=== PATIENT | female | born 1940 | race Caucasian/White ===

== ENCOUNTER 2016-09-19 19:40 | Emergency (ER) | payer OTHER ==
[~2016-09-19] VITALS: Ht 158.8 cm; Wt 88.6 kg
[~2016-09-19 19:40] MED LIST: ALBUAER19 INH; ALPR0.25 PO; AMIT10TA6 PO; ASPI81TA28 PO; ATEN-175 PO; BETA0.053 TOP; CHOL1TAB42 PO; FERR325T5 PO; FLUO0.0543 TOP; GABA-113 PO; INSDGI SQ; LOSA50TA6 PO; METF-384 PO; METR1GEL3 TOP; MISCTAB88 PO; NVLGI SC; NVLGI SQ; OMEP20CA9 PO; PRED1SUS3; SIMV20TA2 PO; TRIA0.1C20 TOP
[2016-09-19 19:53] VITALS: TEMP 37.1; Ht 158.8 cm; Wt 88.6 kg
[2016-09-19 19:58] VITALS: O2SAT 97
[2016-09-19] MEDS ORDERED: ALPRAZOLAM 0.5 MG TAB PO STA (20:14)
[2016-09-19 20:24] LABS: MEAN CELL VOLUME 96.9 fL (80-100); MEAN CORPUSCULAR HEMOGLOBIN 30.4 pg (25-34); RED BLOOD COUNT 3.82 M/uL (4.2-5.4); WHITE BLOOD COUNT 7.27 K/uL (4.8-10.8)
[2016-09-19 20:25] LABS: MEAN CORPUSCULAR HGB CONC 31.4 g/dl (32-36); MEAN PLATELET VOLUME 10.5 fL (7.4-10.4); PLATELET COUNT 237 K/uL (130-400)
[2016-09-19 20:39] LABS: BLOOD UREA NITROGEN 14 mg/dl (7-18); BUN/CREATININE RATIO 10.5 (10-20); CARBON DIOXIDE 28 mmol/L (21-32); CHLORIDE 108 mmol/L (98-107); GLUCOSE 163 mg/dl (70-99); POTASSIUM 4.4 mmol/L (3.5-5.1); SODIUM 142 mmol/L (136-145)
--- NOTE | 2016-09-19 20:48 | EMERGENCY ROOM VISIT NOTE ---
History Report prepared by Isma: Dave Knowles Under the Supervision of: Dr. Mauricio Waller M.D. First contact with patient: 20:08 Chief Complaint: CHEST PAIN Stated Complaint: BURNING IN CHEST,HEART BEATING FAST Nursing Triage Summary: Patient reports that she has had burning in her chest for approx. 2 hours, since eating dinner. Notes that she also feels like her heart is "skipping a beat", which she notes she has a hx of. Patient denies SOB, denies other symptoms at this time. History of Present Illness The patient is a 76 year old female who presents to the Emergency Room with complaints of persistent chest discomfort that started last night. The patient notes that discomfort was on and off throughout the day today. She describes the discomfort as feeling like her heart is racing and like she is having some palpitations. The patient also complains of burning in her face for the past hour and feeling anxious with the fast heart beat. The patient states she does have a history of anxiety in the past and takes daily medication in the morning for her symptoms. She denies fever, shortness of breath, nausea, or vomiting at this time. Source of History: patient Onset: last night Position: chest Timing: other (persistent) Associated Symptoms: No SOB, No fevers, No nausea Note: Other associated symptoms: feeling like heart is racing, palpitations, anxiety, burning in her face Review of Systems All systems have been listed, reviewed, and are negative other than those previously mentioned. Please see Additional Medical History Sheet. Past Medical & Surgical Medical Problems: (1) Diabetes (2) Pulmonary embolism (3) Tachycardia Surgical Problems: (1) History of cholecystectomy Family History FH: diabetes mellitus FH: gallbladder disease FH: heart disease Social History Smoking Status: Never Smoker Marital Status: Housing Status: lives with family Occupation Status: unemployed Current/Historical Medications Scheduled Amitriptyline Hcl (Elavil), 20 MG PO HS Aspirin (Aspirin Ec), 81 MG PO HS Atenolol (Tenormin), 100 MG PO HS Cholecalciferol (D 2000), 2,000 UNITS PO DAILY Cyanocobalamin (Vitamin B12), 1,000 MCG PO DAILY Ferrous Sulfate (Ferrous Sulfate), 325 MG PO QAM Fluticasone Propionate (Nasal) (Flonase Allergy Relief), 2 SPRAYS TREV DAILY Gabapentin (Neurontin), 300 MG PO TID Insulin Aspart (Novolog Penfill), 12 UNITS SC QAM Insulin Aspart (Novolog Penfill), 8 UNITS SC BID Insulin Glargine (Lantus), 29 UNITS SC QAM Krill Oil (Krill Oil), 1 CAP PO DAILY Losartan Potassium (Cozaar), 50 MG PO HS Metformin Hcl (Glucophage), 1,000 MG PO BID Misc Natural Products (Osteo Bi-Flex Advanced Tr), 1 TAB PO DAILY Omeprazole (Prilosec), 20 MG PO DAILYBB Simvastatin (Zocor), 20 MG PO QPM Scheduled PRN Alprazolam (Xanax), 0.25 MG PO TID PRN for Anxiety Betamethasone Dipropionate (To (Betamethasone Dipropionat), 1 APPLN TOP BID PRN for PSORIASIS Rxccptwunjsf-Vvqxbcosnlxtm-Ndq (Dermacinrx Therazole Joseph 1-0.05 & 20 %), 1 DOSE TOP BID PRN for PRN Fluocinonide Emulsified Base (Fluocinonide-E), 1 APPLN TOP DAILY PRN for PRN Triamcinolone Acet (Aristocort 0.1%), 1 APPLN TOP BID PRN for PSORIASIS Allergies Coded Allergies: Mupirocin (Verified Allergy, Unknown, 09/19/16) Propoxyphene (Verified Allergy, Unknown, 09/19/16) Sulfamethoxazole w/Trimethoprim (Verified Allergy, Unknown, ., 09/19/16) Physical Exam Vital Signs Date Time Temp Pulse Resp B/P Pulse Ox O2 Delivery O2 Flow Rate FiO2 09/19/16 22:35 89 16 94 09/19/16 22:30 123/65 09/19/16 22:05 96 21 94 09/19/16 22:00 96 20 130/62 93 09/19/16 21:30 98 20 149/68 94 09/19/16 21:00 95 16 98 09/19/16 21:00 99 18 144/72 94 09/19/16 20:59 88 09/19/16 20:55 149/71 09/19/16 20:18 85 16 155/78 98 Room Air 09/19/16 19:58 97 Room Air 09/19/16 19:53 37.1 108 19 173/68 97 Room Air Physical Exam GENERAL: Patient awake, alert, oriented x 3. Patient follows commands. Patient appears somewhat pale and anxious. SKIN: No erythema, cyanosis or rash HEENT: Normal head, pupils equal, reactive to light and accommodation. Ears normal. Oral cavity and posterior pharynx appear normal. Neck: Without adenopathy, no neck vein distention. LUNGS: Clear to auscultation. No wheezes, no rales, no rhonchi. HEART: No murmurs. No gallops. No rubs ABDOMEN: Obese. No masses, no rebound, no hepatomegaly or splenomegaly. EXTREMITIES: No signs of trauma. No pedal or pretibial edema. No calf or thigh tenderness. NEUROLOGIC: Cranial nerves II-XII within normal limits. No gross motor sensory function deficits. Medical Decision & Procedures ER Provider Diagnostic Interpretation: X ray results are stated below per my interpretation and the radiologist's interpretation. CHEST 2 VIEWS ROUTINE CLINICAL HISTORY: Chest pain. Palpitations. COMPARISON STUDY: Chest radiograph November 02, 2014. FINDINGS: Lung volumes are normal. There is no pneumothorax or pleural effusion. Linear left basilar opacity is suggestive of atelectasis. There is no evidence of pulmonary edema. Mild cardiomegaly is noted. IMPRESSION: No acute cardiopulmonary findings. Electronically signed by: Jorge Robles M.D. 09/19/2016 9:17 PM Dictated Date/Time: 09/19/2016 9:17 PM Laboratory Results 09/19/16 19:55 09/19/16 19:55 Test 09/19/16 19:55 Red Blood Count 3.82 M/uL (4.2-5.4) Mean Corpuscular Volume 96.9 fL (80-100) Mean Corpuscular Hemoglobin 30.4 pg (25-34) Mean Corpuscular Hemoglobin Concent 31.4 g/dl (32-36) RDW Standard Deviation 49.8 fL (36.4-46.3) RDW Coefficient of Variation 13.9 % (11.5-14.5) Mean Platelet Volume 10.5 fL (7.4-10.4) Anion Gap 6.0 mmol/L (3-11) Est Creatinine Clear Calc Drug Dose 39.1 ml/min Estimated GFR () 46.5 Estimated GFR (Non- 40.1 BUN/Creatinine Ratio 10.5 (10-20) Calcium Level 10.0 mg/dl (8.5-10.1) Troponin I < 0.015 ng/ml (0-0.045) Laboratory results as stated above per my review. Medications Administered Medications (Trade) Dose Ordered Sig/Ana Route Start Time Stop Time Status Last Admin Dose Admin Alprazolam (Xanax Tab) 0.5 mg NOW STAT PO 09/19/16 20:14 09/19/16 20:17 DC 09/19/16 20:25 0.5 MG ECG Indication: chest pain Rate (beats per minute): 92 Rhythm: normal sinus Findings: no acute ischemic change, no ectopy ED Course 2010: Past medical records reviewed. The patient was evaluated in room B8. A complete history and physical examination was performed. 2013: Ordered Xanax Tab 0.5 mg PO. 2201: At this time, I reevaluated the patient and she felt fine. Her stats are improving. 2226: Upon reevaluation, the patient appeared to have improvement of her symptoms. I discussed today's findings with her. She verbalized agreement of the treatment plan. The patient was discharged home. Medical Decision Differential diagnoses include anxiety, palpitations, PVCs, PACs, metabolic disorder, or thyroid disorder. Patient is here with some warm feeling/numbness in her chest and left face. She denies any pressure in her chest or stabbing pain. Patient does have a prior history of anxiety and understands that part of this may be related to her anxiety. Multiple labs, EKG and imaging were obtained. Please see above. Patient does not have any EKG findings. Troponin is not elevated. The patient was given Xanax here and was reevaluated. The patient felt significantly better and her symptoms resolved. I believe the patient can safely return home. Impression Primary Impression: Anxiety Scribe Attestation The scribe's documentation has been prepared under my direction and personally reviewed by me in its entirety. I confirm that the note above accurately reflects all work, treatment, procedures, and medical decision making performed by me. Departure Information Dispostion Home / Self-Care Referrals Alan Dukes D.O. (PCP) Forms HOME CARE DOCUMENTATION FORM, IMPORTANT VISIT INFORMATION Patient Instructions [facility] Additional Instructions Continue all of your current medications as prescribed. You may take an additional dose of Xanax if necessary for anxiety. Follow-up with your family physician within the next 2 weeks. Return here sooner if you develop chest pain or shortness of breath.
--- NOTE | 2016-09-19 21:19 | DIAGNOSTIC IMAGING REPORT ---
CHEST 2 VIEWS ROUTINE CLINICAL HISTORY: Chest pain. Palpitations. COMPARISON STUDY: Chest radiograph November 02, 2014. FINDINGS: Lung volumes are normal. There is no pneumothorax or pleural effusion. Linear left basilar opacity is suggestive of atelectasis. There is no evidence of pulmonary edema. Mild cardiomegaly is noted. IMPRESSION: No acute cardiopulmonary findings. Electronically signed by: Jorge Robles M.D. 09/19/2016 9:17 PM Dictated Date/Time: 09/19/2016 9:17 PM
[2016-09-19] MEDS ORDERED: INSU1INJ2 SC ×2 (21:40)
[2016-09-19] MEDS ORDERED: FLUT0.15 NAE (21:40)
[2016-09-19] MEDS ORDERED: TRMCR130WC TOP (21:40)
[2016-09-19] MEDS ORDERED: KRIL1CAP3 PO (21:40)
[2016-09-19] MEDS ORDERED: CHOL1TAB76 PO (21:40)
[2016-09-19] MEDS ORDERED: CLOT1PAK TOP (21:40)
[2016-09-19] MEDS ORDERED: INSDGI SC (21:40)
[2016-09-19] MEDS ORDERED: CYAN100020 PO (21:40)
[2016-09-19] MEDS ORDERED: MISCTAB29 PO (21:40)
[2016-09-19] MEDS ORDERED: FLUOCRE TOP (21:40)
[2016-09-19 22:30] VITALS: BP 123/65
[2016-09-19 22:35] VITALS: PULSE 89; O2SAT 94
== END 2016-09-19 22:45 | disposition home or self-care (01) ==
LOC: C.EDB 19:40
DX: F41.9 Anxiety disorder, unspecified (principal); E11.9 Type 2 diabetes mellitus without complications; Z86.711 Personal history of pulmonary embolism; Z90.49 Acquired absence of other specified parts of digestive tract; Z79.82 Long term (current) use of aspirin; Z79.4 Long term (current) use of insulin; Z79.899 Other long term (current) drug therapy; Z88.2 Allergy status to sulfonamides; Z88.8 Allergy status to other drugs, medicaments and biological substances; Z83.3 Family history of diabetes mellitus; Z83.79 Family history of other diseases of the digestive system; Z82.49 Family history of ischemic heart disease and other diseases of the circulatory system

== ENCOUNTER 2024-08-24 | Inpatient (IN) ==
--- NOTE | 2024-08-24 00:46 | Emergency Department Note ---
Impression & Plan Acute UTI (urinary tract infection), Acute hyponatremia, Episodic confusion ED Provider Note Name: TROY WHATLEY Age: 84 Sex: Female Arrives Via: Walk-In Informant: Patient, daughters ED Provider: Juan Pablo Strickland MD Chief Complaint: Confusion and weakness Impression: As per impressions above Medical Decision Making: Pleasant 84-year-old female arrives for evaluation of worsening confusion and weakness over the last several days. She has been following with PCP and noted trending down sodium as an outpatient. Patient arrives in no distress awake alert oriented no evidence of neurologic deficits or confusion at this time. Laboratory workup obtained does reveal acute hyponatremia. I had osmolality and sodium added to urine and blood. Her urinalysis also does reveal evidence of urinary tract infection. She was given 500 mL IV fluids for initial management of acute hyponatremia as well as 2 g IV Rocephin for UTI. Patient and family are comfortable with plan for hospitalization. Triage/Nursing Notes reviewed by Me Differential:Infection, dehydration, metabolic abnormality, hypo/hyperglycemia, electrolyte disturbance, anemia, hypoxia, cardiac sources, intracerebral event, toxicologic, neurologic, as well as other pathologies. Vital Signs: reviewed and remarkable for no significant abnormalities Interventions: saline lock, nss bolus 500ml iv, rocephin 2g iv Labs:ED labs Reviewed by me and remarkable for acute hyponatremia EKG. As per my interpretation. Indication weakness. Normal sinus rhythm 84 bpm QTc of 420. There is no ectopy nor ischemia. When compared to EKG of July 27, 2024 there is no significant change. Cardiac/Tele Monitoring: Cardiac Monitoring: An Order was placed for continuous cardiac monitoring. The monitor shows a rate of 80 with a normal sinus rhythm. Consults:Discussed with Dr. Ayala of the [facility] hospitalist service who will bring in for further management. Plan: Disposition:Hospitalization. Condition: good History of Present Illness: 84-year-old female arrives for evaluation of weakness. Patient with worsening weakness over the last few days. Associated with some mild episodes of confusion. At times feeling her heart beating and palpating and sometimes having some frontal headaches. She has not been feeling herself for the last month and a half or so. She was seen in the ER few times for her nosebleed and had high blood pressure at the beginning of last month. She has been seen multiple times by her PCP over the last few weeks. She has had multiple laboratory testing, CT scans of the head and has had multiple changes to her medications including being started on a dose of Lasix for some fluid overload. Denies any shortness of breath, chest pain, syncope, near syncope, abdominal pain, back pain or other concerning signs or symptoms. She has been having increasing urinary frequency but related that to being on the Lasix. Past Medical History:See Below Home Medications:See Below Allergies:See Below Vitals:Blood Pressure: 161/79, Pulse 78, RR 20, T 36.8C, O2 98% on RA Physical Exam: GENERAL: Patient is elderly appearing and in minimal distress. Mildly dehydrated appearing RESPIRATORY: No dyspnea. Clear to auscultation and equal bilaterally. CARDIOVASCULAR: Regular rate and rhythm.No murmur appreciated. GASTROINTESTINAL: Abdomen soft, non-tender, no peritonitis. EXTREMITIES: Normal motion all extremities, no cyanosis, no edema. NEUROLOGIC: Alert and oriented. No focal neurologic deficits appreciated SKIN: No rash, no jaundice, no diaphoresis. PSYCH: Appropriate GCS: 15 ED Course: Times/Reassessments: Stable no distress and agreeable to hospitalization Juan Pablo Srtickland MD Past Med/Surg History Problem List (Updated 08/24/24 @ 06:52 by Juan Pablo Strickland MD) Episodic confusion (Acute) Acute hyponatremia (Acute) Acute UTI (urinary tract infection) (Acute) Sepsis (Acute) Dizziness (Acute) Anxiety (Acute) High cholesterol (Acute) Psoriasis (Acute) GERD (gastroesophageal reflux disease) (Acute) Fever (Acute) UTI (urinary tract infection) (Acute) Diabetes (Chronic) Tachycardia (Chronic) Urinary problem (Acute) Social History Smoking Status: Never smoker Hx Alcohol Use: No Hx Substance Use: No Preferred Language: Irish Communication Ability: Effective Cloth Mender Required: No Beliefs That Will Affect Care: None Current Living Situation: Spouse and Family Current Living Situation Comment: daughter Debbie and Austin Feels Safe at Home: Yes Safety Concerns: Feels Safe At This Time Assistive Devices: Denture - Upper, Denture - Lower and Glasses Allergies Allergies Allergy/AdvReac Type Severity Reaction Status Date / Time mupirocin [From Bactroban] Allergy Intermediate Rash Verified 08/24/24 01:16 propoxyphene Allergy Unknown CAN'T Verified 08/24/24 01:16 REMEMBER losartan AdvReac Severe HYPERKALEMI Verified 08/24/24 01:16 A lisinopril AdvReac Intermediate Cough Verified 08/24/24 01:16 Home Meds Home Medications Medication Instructions Recorded Confirmed alprazolam 0.25 mg tablet 0.25 mg PO TID PRN Anxiety 08/24/24 08/24/24 amitriptyline 10 mg tablet 10 mg PO HS 08/24/24 08/24/24 amlodipine 10 mg tablet 10 mg PO DAILY 08/24/24 08/24/24 aspirin 81 mg tablet,delayed 81 mg PO DAILY 08/24/24 08/24/24 release cyanocobalamin (vitamin B-12) 1,000 mcg IM MONTHLY 08/24/24 08/24/24 1,000 mcg/mL injection solution gabapentin 300 mg capsule 300 mg PO HS PRN NEEDED PER 08/24/24 08/24/24 FAMILY glucosamine 750 je-mheqxesywnq-plq 1 tab PO BID PRN NEEDED PER PT 08/24/24 08/24/24 no1 644 mg-C 30 mg-fannie 1 mg tablet (Osteo Bi-Flex Triple Strength) insulin aspart U-100 100 unit/mL 12 - 14 unit subcut QDD 15 UNITS 08/24/24 08/24/24 (3 mL) subcutaneous pen (Novolog DAILY FlexPen U-100 Insulin aspart) insulin degludec 100 30 unit subcut QAM 08/24/24 08/24/24 unit-liraglutide 3.6 mg/mL(3 mL) subcutaneous pen (Xultophy 100/3.6) metoprolol succinate 100 mg 100 mg PO QPM 08/24/24 08/24/24 tablet,extended release 24 hr nqbncurx-nihp-xeye 8 mg-folic 400 1 tab PO DAILY 08/24/24 08/24/24 mcg-K 50 mcg-lutein 300 mcg tablet (Centrum Silver Women) omeprazole 20 mg tablet,delayed 20 mg PO DAILYBB 08/24/24 08/24/24 release simvastatin 20 mg tablet 20 mg PO HS 08/24/24 08/24/24 spironolactone 25 mg tablet 25 mg PO DAILY 08/24/24 08/24/24 turmeric root extract 500 mg 500 mg PO HS 08/24/24 08/24/24 capsule Results & Data (ED) Vital Signs Vital Signs - 24 hr 08/24/24 00:06 08/24/24 00:31 08/24/24 01:00 Temperature 36.8 C Temperature Source Temporal Artery Scan Pulse Rate 78 75 67 Respiratory Rate 20 18 18 Respiratory Effort / Characteristics Non-Labored Spontaneous Respiratory Depth Normal Blood Pressure 161/79 H 159/89 H 172/86 H Blood Pressure Mean 106 107 114 Pulse Oximetry 98 98 97 Oxygen Delivery Method Room Air Sepsis Recent Fever Within 48 Hours No Sepsis New/Unexplained Change in Mental Status No Sepsis Action Taken by Nursing No Action Required 08/24/24 01:00 08/24/24 01:32 08/24/24 02:39 Temperature Temperature Source Pulse Rate 73 70 66 Respiratory Rate 18 18 18 Respiratory Effort / Characteristics Respiratory Depth Blood Pressure 172/86 H 190/95 H 172/80 H Blood Pressure Mean 123 144 132 Pulse Oximetry 99 100 98 Oxygen Delivery Method Sepsis Recent Fever Within 48 Hours Sepsis New/Unexplained Change in Mental Status Sepsis Action Taken by Nursing 08/24/24 03:00 Temperature Temperature Source Pulse Rate 71 Respiratory Rate 18 Respiratory Effort / Characteristics Respiratory Depth Blood Pressure 171/77 H Blood Pressure Mean 137 Pulse Oximetry 99 Oxygen Delivery Method Sepsis Recent Fever Within 48 Hours Sepsis New/Unexplained Change in Mental Status Sepsis Action Taken by Nursing Laboratory Data 08/24/24 00:25 08/24/24 05:39 Lab Results 08/24/24 08/24/24 08/24/24 Range/Units 00:25 01:15 02:05 WBC 8.33 (4.8-10.8) K/ul RBC 4.46 (4.20-5.40) M/uL Hgb 13.5 (12.0-16.0) g/dl Hct 39.6 (37.0-47.0) % MCV 88.8 (80.0-100.0) fL MCH 30.3 (25.0-34.0) pg MCHC 34.1 (32.0-36.0) g/dL RDW Std Deviation 40.0 (36.4-46.3) fL RDW Coeff of Scot 12.3 (11.5-14.5) % Plt Count 223 (130-400) K/uL MPV 9.9 (9.4-12.4) fL Immature Gran % (Auto) 0.2 % Neut % (Auto) 61.1 % Lymph % (Auto) 27.4 % [place] % (Auto) 9.4 % Eos % (Auto) 1.4 % Baso % (Auto) 0.5 % Neut # (Auto) 5.09 (1.40-6.50) K/uL Lymph # (Auto) 2.28 (1.20-3.40) K/uL [place] # (Auto) 0.78 H (0.11-0.59) K/uL Eos # (Auto) 0.12 (0.00-0.50) K/uL Baso # (Auto) 0.04 (0.00-0.20) K/uL Immature Gran # (Auto) 0.02 (0.01-0.20) K/uL Sodium 121 L (136-145) mmol/L Potassium 4.8 (3.5-5.1) mmol/L Chloride 88 L (98-107) mmol/L Carbon Dioxide 25 (21-32) mmol/L Anion Gap 8 (3-11) BUN 22 (6-23) mg/dl Creatinine 0.99 (0.6-1.2) mg/dl Est Cr Clr Drug Dosing 41.2 ml/min eGFR 56.58 BUN/Creatinine Ratio 22.2 H (10-20) Glucose 182 H (70-99(Fasting)) mg/dl Osmolality 270 L (280-300) mOsm/kg Calcium 10.3 (8.6-10.3) mg/dl Magnesium 1.7 (1.7-2.4) mg/dl Total Bilirubin 0.5 (0.2-1.0) mg/dl Direct Bilirubin 0.1 (0-0.2) mg/dl AST 19 (13-39) U/L ALT 22 (7-52) U/L Alkaline Phosphatase 81 (34-104) U/L Troponin I High Sens 6.0 (0-14) pg/ml Total Protein 7.8 (6.0-8.3) gm/dl Albumin 4.4 (3.4-5.0) gm/dl TSH 1.897 (0.300-4.500) uIu/ml Urine Color Yellow Urine Appearance Clear (Clear) Urine pH 6.0 (4.5-7.5) Ur Specific [place] 1.011 (1.000-1.030) Urine Protein Trace H (Negative) Urine Glucose (UA) Negative (Negative) Urine Ketones Negative (Negative) Urine Blood Trace H (Negative) Urine Nitrite Negative (Negative) Urine Bilirubin Negative (Negative) Urine Urobilinogen Negative (Negative) Ur Leukocyte Esterase 2+ H (Negative) Urine WBC (Auto) >50 H (0-5) /hpf Urine RBC (Auto) 0-2 (0-2) /hpf U Hyaline Cast (Auto) 0-2 (0-2) /lpf U Epithel Cells (Auto) 0-2 (0-2) /hpf Urine Bacteria (Auto) 4+ H (None Seen) Urine Osmolality 237 L (500-800) mOsm/kg Ur Random Sodium 57 mmol/L Administered Medications Insulin Aspart (Insulin Aspart Per Unit Charge) 0 units SC ACHS [place] Stop: 09/23/24 03:40 Last Admin: 08/24/24 04:20 Dose: Not Given Documented By: JORDEN Pantoprazole Sodium (Pantoprazole 40 Mg Tab) 40 mg PO DAILYBB [place] Stop: 09/23/24 06:29 Last Admin: 08/24/24 06:15 Dose: 40 mg Documented By: JORDEN Discontinued Medications Acetaminophen (Acetaminophen 325 Mg Tab) 650 mg PO NOW STA Stop: 08/24/24 02:22 Last Admin: 08/24/24 02:41 Dose: 650 mg Documented By: JORDEN Amlodipine Besylate (Amlodipine Besylate 5 Mg Tab) 10 mg PO NOW STA Stop: 08/24/24 02:17 Last Admin: 08/24/24 02:24 Dose: 10 mg Documented By: JORDEN Sodium Chloride (Nss) 500 mls @ 999 mls/hr IV .Q31M ONE Stop: 08/24/24 02:24 Last Admin: 08/24/24 02:09 Dose: 999 mls/hr Documented By: JORDEN Ceftriaxone Sodium (Rocephin) 2,000 mg in 50 mls @ 100 mls/hr IV NOW STA Stop: 08/24/24 02:38 Last Infusion: 08/24/24 03:20 Dose: Infused Documented By: Admin: 08/24/24 02:38 Dose: 100 mls/hr Documented By: JORDEN Imaging Data Radiologist's Impression: Chest X-Ray 08/24/24 00:44 EXAM: XR chest 1V portable CLINICAL HISTORY: Weakness. TECHNIQUE: An X-ray image of the chest is obtained in AP projection. COMPARISON: ChestX-ray 07/27/24. FINDINGS: Pulmonary Parenchyma: No evidence of consolidation, collapse, or focal opacities. No pulmonary nodules are identified. No evidence of pleural effusion or pleural thickening. Heart and Mediastinum: Normal cardiothoracic ratio. Prominent hilum. Bony Thorax: Bony thorax appears intact without fractures or deformities. Soft Tissues: Soft tissues overlying the chest wall are unremarkable. IMPRESSION: 1. No acute cardiopulmonary findings 2. No significant interval changes. Electronically signed by Cyril Rico 08-24-2024 02:[address] 08/24/24 02:21 EXAM: CT head/brain wo con CLINICAL HISTORY: encinas, htn crisis TECHNIQUE: Multiple axial images are obtained from the skull base to the vertex without contrast. CT scan was performed according to ALARA (as low as reasonable achievable). 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 No evidence of space occupying lesion, hemorrhage, edema, mass effect, midline shift, extra axial collection, or hydrocephalus is noted. Basal cisterns are symmetric and normal in size and configuration. There are scattered periventricular hypodensities as can be seen with chronic microvascular ischemic changes. The fonseca-white matter differentiation is preserved. Visualized paranasal sinuses and mastoid air cells are well aerated. Orbital contents are within normal limits. Bony structures are intact. IMPRESSION: 1. No evidence of acute intracranial abnormality is demonstrated. 2. Chronic microvascular ischemic changes. 3. Cerebral atrophy. No other new interval abnormality since prior study. Electronically signed by Homer Tirado 08-24-2024 02:53 AM Discharge Plan Visit Data Chief Complaint: Urinary Symptoms Stated Complaint: FAST HEARTBEAT, UTI ED Provider: Juan Pablo Strickland Discharge Problem: Acute UTI (urinary tract infection), Acute hyponatremia, Episodic confusion Discharge Instructions Interventions: ED Discharge Assessment Last Done: 08/24/24 03:41
[2024-08-24 01:11] LABS: Basophils # (auto) 0.04 K/uL (0.00-0.20); Basophils % (auto) 0.5 %; Eosinophils # (auto) 0.12 K/uL (0.00-0.50); Eosinophils % (auto) 1.4 %; Hematocrit (blood only) 39.6 % (37.0-47.0); Hemoglobin 13.5 g/dl (12.0-16.0); Immature Granulocytes # (auto) 0.02 K/uL (0.01-0.20); Immature Granulocytes % (auto) 0.2 %; Lymphocytes # (auto) 2.28 K/uL (1.20-3.40); Lymphocytes % (auto) 27.4 %; Mean Corpuscular Hemoglobin 30.3 pg (25.0-34.0); Mean Corpuscular Hgb Conc 34.1 g/dL (32.0-36.0); Mean Corpuscular Volume 88.8 fL (80.0-100.0); Mean Platelet Volume 9.9 fL (9.4-12.4); Monocytes # (auto) 0.78 K/uL (0.11-0.59); Monocytes % (auto) 9.4 %; Neutrophils # (auto) 5.09 K/uL (1.40-6.50); Neutrophils % (auto) 61.1 %; Platelet Count 223 K/uL (130-400); RDW Coefficient of Variation 12.3 % (11.5-14.5); Red Blood Count 4.46 M/uL (4.20-5.40); White Blood Count 8.33 K/ul (4.8-10.8)
[2024-08-24 01:20] LABS: Albumin Level 4.4 gm/dl (3.4-5.0); BUN Creatinine Ratio 22.2 (10-20); Bilirubin Direct 0.1 mg/dl (0-0.2); Bilirubin,Total 0.5 mg/dl (0.2-1.0); Calcium 10.3 mg/dl (8.6-10.3); Creatinine Clr Calc Pharmacy 41.2 ml/min; Magnesium 1.7 mg/dl (1.7-2.4); Potassium 4.8 mmol/L (3.5-5.1); Total Protein 7.8 gm/dl (6.0-8.3)
[2024-08-24 01:37] LABS: Thyroid Stimulating Hormone 1.897 uIu/ml (0.300-4.500)
[2024-08-24 01:43] LABS: Appearance Urine Clear (Clear); Bacteria Urine Automated 4+ (None Seen); Bilirubin Urine Negative (Negative); Blood Urine Trace (Negative); Cast Urine Automated 0-2 /lpf (0-2); Color Urine Yellow; Epithelial Cell Urine Auto 0-2 /hpf (0-2); Glucose Urine UA Negative (Negative); Ketones Urine Negative (Negative); Leukocyte Esterase Urine 2+ (Negative); Nitrite Urine Negative (Negative); Protein Urine Trace (Negative); RBC Urine Automated 0-2 /hpf (0-2); Specific Gravity Urine 1.011 (1.000-1.030); Urobilinogen Urine Negative (Negative); WBC Urine Automated >50 /hpf (0-5)
[2024-08-24] MEDS: SODIUM CHLORIDE 0.9% 500 ML IV ONE (02:09)
--- NOTE | 2024-08-24 02:12 | XRay Report ---
EXAM: XR chest 1V portable CLINICAL HISTORY: Weakness. TECHNIQUE: An X-ray image of the chest is obtained in AP projection. COMPARISON: ChestX-ray 07/27/24. FINDINGS: Pulmonary Parenchyma: No evidence of consolidation, collapse, or focal opacities. No pulmonary nodules are identified. No evidence of pleural effusion or pleural thickening. Heart and Mediastinum: Normal cardiothoracic ratio. Prominent hilum. Bony Thorax: Bony thorax appears intact without fractures or deformities. Soft Tissues: Soft tissues overlying the chest wall are unremarkable. IMPRESSION: 1. No acute cardiopulmonary findings 2. No significant interval changes. Electronically signed by Cyril Rico 08-24-2024 02:11 AM
[2024-08-24] MEDS: amLODIPine BESYLATE 5 MG TAB PO STA (02:24)
[2024-08-24] MEDS: cefTRIAXone SODIUM 2,000 MG/50 ML BAG IV STA (02:38)
[2024-08-24] MEDS: ACETAMINOPHEN 325 MG TAB PO STA (02:41)
--- NOTE | 2024-08-24 02:53 | CT Scan Report ---
EXAM: CT head/brain wo con CLINICAL HISTORY: encinas, htn crisis TECHNIQUE: Multiple axial images are obtained from the skull base to the vertex without contrast. CT scan was performed according to ALARA (as low as reasonable achievable). 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 No evidence of space occupying lesion, hemorrhage, edema, mass effect, midline shift, extra axial collection, or hydrocephalus is noted. Basal cisterns are symmetric and normal in size and configuration. There are scattered periventricular hypodensities as can be seen with chronic microvascular ischemic changes. The fonseca-white matter differentiation is preserved. Visualized paranasal sinuses and mastoid air cells are well aerated. Orbital contents are within normal limits. Bony structures are intact. IMPRESSION: 1. No evidence of acute intracranial abnormality is demonstrated. 2. Chronic microvascular ischemic changes. 3. Cerebral atrophy. No other new interval abnormality since prior study. Electronically signed by Homer Tirado 08-24-2024 02:53 AM
--- NOTE | 2024-08-24 03:19 | History & Physical Report ---
Date of Service August 24, 2024 Assessment & Plan (1) Encephalopathy: Plan: Transient encephalopathy Multifactorial Hypertensive crisis Worsening hyponatremia likely from recent outpatient diuretic medications Complicated UTI, no sepsis for now hx paroxysmal atrial tachycardia hyperlipidemia, on statin Rx PVD history of PE status post anticoagulation DM2 insulin requiring, suboptimal control as of recent hemoglobin A1c of 7.8 last June 2024 Admit to PCU Coreg in place of Lopressor Facilitate amlodipine Stop spironolactone given worsening hyponatremia Careful correction of sodium Hyponatremia workup Nephrology consult if without improvement Urine CS, ceftriaxone Basal bolus insulin, ISS BG goal 110-140, carb count coverage PT OT eval DVT prophylaxis. Lovenox subcu Full code Patient daughter requesting updates providers. Ms. Jessika Cook, contact #[phone]. Text document was generated using [employer] voice recognition software. It may contain grammatical or spelling errors. Kindly contact undersigned for clarification of any documentation item in question. History of Present Illness Chief Complaint: Confusion, weakness Primary Care Provider: Alan Dukes DO History obtained from patient, family, and records. Medical history significant for paroxysmal atrial tachycardia, hypertension, hyperlipidemia, PVD, history of PE status post anticoagulation, DM2 insulin requiring, GERD, RLS.. Last 2014 for sepsis secondary to complicated UTI. Recent ER visit last month for lightheadedness attributed to uncontrolled hypertension. Patient discharged home with instructions to follow-up with PCP. Multiple PCP visits for BP control since last month. Amlodipine added to BP regimen. Patient atenolol switched to Toprol-XL. HCTZ discontinued due to hyponatremia. Patient recently started on spironolactone. Patient instructed by PCP to restrict fluid given hyponatremia on outpatient blood work. Serum sodium 126-132 from outpatient blood draws since last week. Patient noted to be increasingly weak the last few days. Urinary frequency without fever, chills, hematuria, abdominal or flank pain. Achy headache and facial pain. Compliant with home medications. Usual stress from worrying about everything as per family. Denies chest pain and SOB. Chest pounding sensation. No cough symptoms. Patient somewhat confused as per family. Highest SBP of 190s documented at the ER. IV ceftriaxone administered at the ER. Patient currently mentating better as per family. 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 Allergies Allergy/AdvReac Type Severity Reaction Status Date / Time mupirocin [From Bactroban] Allergy Intermediate Rash Verified 08/24/24 01:16 propoxyphene Allergy Unknown CAN'T Verified 08/24/24 01:16 REMEMBER losartan AdvReac Severe HYPERKALEMI Verified 08/24/24 01:16 A lisinopril AdvReac Intermediate Cough Verified 08/24/24 01:16 Home Medications Medication Instructions Recorded Confirmed Type alprazolam 0.25 mg tablet 0.25 mg PO TID PRN Anxiety 08/24/24 08/24/24 History amitriptyline 10 mg tablet 10 mg PO HS 08/24/24 08/24/24 History amlodipine 10 mg tablet 10 mg PO DAILY 08/24/24 08/24/24 History aspirin 81 mg tablet,delayed 81 mg PO DAILY 08/24/24 08/24/24 History release cyanocobalamin (vitamin B-12) 1,000 mcg IM MONTHLY 08/24/24 08/24/24 History 1,000 mcg/mL injection solution gabapentin 300 mg capsule 300 mg PO HS PRN NEEDED PER 08/24/24 08/24/24 History FAMILY glucosamine 750 [id number] 1 tab PO BID PRN NEEDED PER PT 08/24/24 08/24/24 History no1 644 mg-C 30 mg-fannei 1 mg tablet (Osteo Bi-Flex Triple Strength) insulin aspart U-100 100 unit/mL 12 - 14 unit subcut QDD 15 UNITS 08/24/24 08/24/24 History (3 mL) subcutaneous pen (Novolog DAILY FlexPen U-100 Insulin aspart) insulin degludec 100 30 unit subcut QAM 08/24/24 08/24/24 History unit-liraglutide 3.6 mg/mL(3 mL) subcutaneous pen (Xultophy 100/3.6) metoprolol succinate 100 mg 100 mg PO QPM 08/24/24 08/24/24 History tablet,extended release 24 hr [id number] 8 mg-folic 400 1 tab PO DAILY 08/24/24 08/24/24 History mcg-K 50 mcg-lutein 300 mcg tablet (Centrum Silver Women) omeprazole 20 mg tablet,delayed 20 mg PO DAILYBB 08/24/24 08/24/24 History release simvastatin 20 mg tablet 20 mg PO HS 08/24/24 08/24/24 History spironolactone 25 mg tablet 25 mg PO DAILY 08/24/24 08/24/24 History turmeric root extract 500 mg 500 mg PO HS 08/24/24 08/24/24 History capsule Past Med/Surg History Problem List (Updated 08/24/24 @ 09:06 by Vikas Ayala MD) Encephalopathy Episodic confusion (Acute) Acute hyponatremia (Acute) Acute UTI (urinary tract infection) (Acute) Sepsis (Acute) Dizziness (Acute) Anxiety (Acute) High cholesterol (Acute) Psoriasis (Acute) GERD (gastroesophageal reflux disease) (Acute) Fever (Acute) UTI (urinary tract infection) (Acute) Diabetes (Chronic) Tachycardia (Chronic) Urinary problem (Acute) Social History Smoking Status: Never smoker Hx Alcohol Use: No Hx Substance Use: No Preferred Language: Bol[place]ian Communication Ability: Effective 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 Hearing 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: No Beliefs That Will Affect Care: None Current Living Situation: Spouse and Family Current Living Situation Comment: daughter Debbie and Austin Feels Safe at Home: Yes Safety Concerns: Feels Safe At This Time Assistive Devices: Denture - Upper, Denture - Lower and Glasses Review of Systems Review of Systems: As per HPI, all other systems reviewed and negative Physical Exam Physical Exam: GENERAL: Comfortable, pleasant, obese, slightly hard of hearing, no respiratory distress SKIN: Normal color, warm HEENT: [place] palpebral conjunctivae, no ptosis, dry buccal mucosa NECK : Supple, short neck, no tenderness CHEST : CTA, no tenderness HEART : RRR, no obvious murmurs ABDOMEN: Some distention, nontender EXTREMITIES : Minimal LE swelling, without LE tenderness, palpable pulses, no other conspicuous deformities noted NEUROLOGIC : Coherent, no facial asymmetry, slightly hard of hearing, no other gross focality Results & Data Results & Data Vital Signs (Past 12 Hours) Vital Signs Temp Pulse Resp BP Pulse Ox O2 Del Method 08/24/24 03:00 71 18 171/77 H 99 08/24/24 02:39 66 18 172/80 H 98 08/24/24 01:32 70 18 190/95 H 100 08/24/24 01:00 73 18 172/86 H 99 08/24/24 01:00 67 18 172/86 H 97 08/24/24 00:31 75 18 159/89 H 98 08/24/24 00:06 36.8 C 78 20 161/79 H 98 Room Air Laboratory Results Laboratory Results WBC 8.33 K/ul (4.8-10.8) 08/24/24 00:25 RBC 4.46 M/uL (4.20-5.40) 08/24/24 00:25 Hgb 13.5 g/dl (12.0-16.0) 08/24/24 00:25 Hct 39.6 % (37.0-47.0) 08/24/24 00:25 MCV 88.8 fL (80.0-100.0) 08/24/24 00:25 MCH 30.3 pg (25.0-34.0) 08/24/24 00:25 MCHC 34.1 g/dL (32.0-36.0) 08/24/24 00:25 RDW Std Deviation 40.0 fL (36.4-46.3) 08/24/24 00:25 RDW Coeff of Scot 12.3 % (11.5-14.5) 08/24/24 00:25 Plt Count 223 K/uL (130-400) 08/24/24 00:25 MPV 9.9 fL (9.4-12.4) 08/24/24 00:25 Immature Gran % (Auto) 0.2 % 08/24/24 00:25 Neut % (Auto) 61.1 % 08/24/24 00:25 Lymph % (Auto) 27.4 % 08/24/24 00:25 [place] % (Auto) 9.4 % 08/24/24 00:25 Eos % (Auto) 1.4 % 08/24/24 00:25 Baso % (Auto) 0.5 % 08/24/24 00:25 Neut # (Auto) 5.09 K/uL (1.40-6.50) 08/24/24 00:25 Lymph # (Auto) 2.28 K/uL (1.20-3.40) 08/24/24 00:25 [place] # (Auto) 0.78 K/uL (0.11-0.59) H 08/24/24 00:25 Eos # (Auto) 0.12 K/uL (0.00-0.50) 08/24/24 00:25 Baso # (Auto) 0.04 K/uL (0.00-0.20) 08/24/24 00:25 Immature Gran # (Auto) 0.02 K/uL (0.01-0.20) 08/24/24 00:25 Sodium 121 mmol/L (136-145) L 08/24/24 00:25 Potassium 4.8 mmol/L (3.5-5.1) 08/24/24 00:25 Chloride 88 mmol/L (98-107) L 08/24/24 00:25 Carbon Dioxide 25 mmol/L (21-32) 08/24/24 00:25 Anion Gap 8 (3-11) 08/24/24 00:25 BUN 22 mg/dl (6-23) 08/24/24 00:25 Creatinine 0.99 mg/dl (0.6-1.2) 08/24/24 00: Est Cr Clr Drug Dosing 41.2 ml/min 08/24/24 00:25 eGFR 56.58 08/24/24 00:25 BUN/Creatinine Ratio 22.2 (10-20) H 08/24/24 00:25 Glucose 182 mg/dl (70-99(Fasting)) H 08/24/24 00:25 Osmolality 270 mOsm/kg (280-300) L 08/24/24 00:25 Calcium 10.3 mg/dl (8.6-10.3) 08/24/24 00: Magnesium 1.7 mg/dl (1.7-2.4) 08/24/24 00:25 Total Bilirubin 0.5 mg/dl (0.2-1.0) 08/24/24 00:25 Direct Bilirubin 0.1 mg/dl (0-0.2) 08/24/24 00:25 AST 19 U/L (13-39) 08/24/24 00:25 ALT 22 U/L (7-52) 08/24/24 00:25 Alkaline Phosphatase 81 U/L (34-104) 08/24/24 00:25 Troponin I High Sens 6.0 pg/ml (0-14) 08/24/24 00: Total Protein 7.8 gm/dl (6.0-8.3) 08/24/24 00:25 Albumin 4.4 gm/dl (3.4-5.0) 08/24/24 00:25 TSH 1.897 uIu/ml (0.300-4.500) 08/24/24 00:25 Urine Color Yellow 08/24/24 01:15 Urine Appearance Clear (Clear) 08/24/24 01:15 Urine pH 6.0 (4.5-7.5) 08/24/24 01:15 Ur Specific Reed 1.011 (1.000-1.030) 08/24/24 01:15 Urine Protein Trace (Negative) H 08/24/24 01:15 Urine Glucose (UA) Negative (Negative) 08/24/24 01:15 Urine Ketones Negative (Negative) 08/24/24 01:15 Urine Blood Trace (Negative) H 08/24/24 01:15 Urine Nitrite Negative (Negative) 08/24/24 01:15 Urine Bilirubin Negative (Negative) 08/24/24 01:15 Urine Urobilinogen Negative (Negative) 08/24/24 01:15 Ur Leukocyte Esterase 2+ (Negative) H 08/24/24 01:15 Urine WBC (Auto) >50 /hpf (0-5) H 08/24/24 01:15 Urine RBC (Auto) 0-2 /hpf (0-2) 08/24/24 01:15 U Hyaline Cast (Auto) 0-2 /lpf (0-2) 08/24/24 01:15 U Epithel Cells (Auto) 0-2 /hpf (0-2) 08/24/24 01:15 Urine Bacteria (Auto) 4+ (None Seen) H 08/24/24 01:15 Urine Osmolality 237 mOsm/kg (500-800) L 08/24/24 02:05 Ur Random Sodium 57 mmol/L 08/24/24 02:05 Impressions Chest X-Ray 08/24/24 00:44 EXAM: XR chest 1V portable CLINICAL HISTORY: Weakness. TECHNIQUE: An X-ray image of the chest is obtained in AP projection. COMPARISON: ChestX-ray 07/27/24. FINDINGS: Pulmonary Parenchyma: No evidence of consolidation, collapse, or focal opacities. No pulmonary nodules are identified. No evidence of pleural effusion or pleural thickening. Heart and Mediastinum: Normal cardiothoracic ratio. Prominent hilum. Bony Thorax: Bony thorax appears intact without fractures or deformities. Soft Tissues: Soft tissues overlying the chest wall are unremarkable. IMPRESSION: 1. No acute cardiopulmonary findings 2. No significant interval changes. Electronically signed by Cyril Rico 08-24-2024 02:[address] 08/24/24 02:21 EXAM: CT head/brain wo con CLINICAL HISTORY: encinas, htn crisis TECHNIQUE: Multiple axial images are obtained from the skull base to the vertex without contrast. CT scan was performed according to ALARA (as low as reasonable achievable). 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 No evidence of space occupying lesion, hemorrhage, edema, mass effect, midline shift, extra axial collection, or hydrocephalus is noted. Basal cisterns are symmetric and normal in size and configuration. There are scattered periventricular hypodensities as can be seen with chronic microvascular ischemic changes. The fonseca-white matter differentiation is preserved. Visualized paranasal sinuses and mastoid air cells are well aerated. Orbital contents are within normal limits. Bony structures are intact. IMPRESSION: 1. No evidence of acute intracranial abnormality is demonstrated. 2. Chronic microvascular ischemic changes. 3. Cerebral atrophy. No other new interval abnormality since prior study. Electronically signed by Homer Tirado 08-24-2024 02:53 AM Diagnostic Findings EKG as per my interpretation :Rate 80, NSR, LAD, LAFB, incomplete RBBB, no is chemia
[2024-08-24] MEDS ORDERED: GLUCOSE 40% GEL 15 GM TUBE PO PRN (03:41)
[2024-08-24] MEDS ORDERED: CARBOHYDRATES FOR HYPOGLYCEMIA PO PRN (03:41)
[2024-08-24] MEDS ORDERED: DEXTROSE 50% 50 ML SYRINGE IV PRN (03:41)
[2024-08-24] MEDS ORDERED: GLUCAGON FOR INJ 1 MG VIAL SQ PRN (03:41)
[2024-08-24] MEDS ORDERED: GLUCOSE 10 TAB/TUBE PO PRN (03:41)
[2024-08-24] MEDS ORDERED: NON-FORMULARY MEDICATION (Glucosam-Chon-Msm1-C-Mang-Bosw [Osteo Bi-Flex Triple Strength] 7 PO PRN (03:51)
[2024-08-24] MEDS ORDERED: oxyCODONE HCL IR 5 MG TAB (IMMEDIATE RELEASE) PO PRN (03:55)
[2024-08-24] MEDS ORDERED: PROMETHAZINE 6.25 MG/50.25 ML BAG IV PRN (03:55)
[2024-08-24] MEDS: INSULIN ASPART PER UNIT CHARGE SC SCH (04:20)
--- OUTSIDE RECORDS SUMMARY | 2024-08-24 06:04 | External Medical Summary | Summary of Care ---
Author Name Unknown Organization [facility] Address [address] [facility] [place] [address] Phone [phone] Care Team Providers Care Consumer Safety Inspector Name Role Phone Alan Dukes DO Primary Care Provider [phone] Reason for Visit * Reason Onset Date Comments Test Results 08/23/202408/23 Encounter Details Date Type Department Care Team (Late st Contact Info) Description 08/23/2024 Telephone Family Practice [facility] [address] [place] [address] Alan Dukes DO [address] [place] [address] Test Results (08/23) Allergies Active Allergy Reactions Criticality Noted Date Comments Bactroban Rash 03/02/2010 Lisinopril Cough 12/24/2011 Losartan Other (Please comment) 07/20/2022 hyperkalemia Propoxyphene Unknown 12/27/1999 Darvon documented as of this encounter (statuses as of 08/23/2024) Medications LANCET DEVICE MISCIndication s:DM type 2, goal A1c below 7 use bid for 250.00 100 5 008 Active ONETOUCH ULTRA SYSTEM W/DEVICE KITIndications :DM type 2, goal A1c below 7 Use up to four times a day as directed 1 Kit 0 011 Active OSTEO BI-FLEX ADV TRIPLE ST PO TABS Take 1 Tab by mouth 2 times a day. Active ASPIRIN EC 81 MG PO TBECIndication s:HTN, goal below 140/80 1 TABLET DAILY 99 Tab 99 014 Active Turmeric 500 MG Oral Capsule Take 1 Capsule by mouth at bedtime. 022 Active Centrum Silver 50+Women Oral Tablet Take 1 Tablet by mouth in the morning. Active OneTouch Ultra In Vitro Strip (Glucose Blood)Indicati ons:Type 2 diabetes 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 hypertension (HCC) USE TO TEST BLOOD SUGAR 3 TIMES DAILY 300 Strip 3 05/20/20 24 10:43 AM EST 024 2024 Active Unifine Pentips 31G X 8 MM (Insulin Pen Needle) Use to inject Xultophy daily 100 Each 3 07/15/19 25 1:36 PM EST 024 2024 Active Simvastatin 20 MG Oral Tablet (Zocor)Indicat ions:Dyslipide mel, goal LDL below 100 TAKE ONE TABLET BY MOUTH AT BEDTIME 100 Tablet 1 08/17/19 25 8:22 AM EDT 024 2024 Active NovoLOG FlexPen 100 UNIT/ML Subcutaneous Solution Pen-injector (insulin aspart)Indicat ions: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 Then increase dose as directed by [facility] pharmacist (max 15 units daily) 15 mL 3 07/31/19 25 2:35 PM EDT 024 Active Additional Information Patient taking differently: 12-14 UnitsSubcutaneous BEFORE DINNER, Then increase dose as directed by [facility] pharmacist (max 15 units daily), Reported on 08/20/2024 Xultophy 100-3.6 UNIT-MG/ML Subcutaneous Solution Pen-injector (Insulin Degludec-Lirag lutide)Indicat ions:Type 2 diabetes 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 hypertension (HCC) Inject 28 Units under the skin daily. 30 mL 1 07/01/19 25 7:08 AM EST 025 Active Additional Information Patient taking differently: 30 UnitsSubcutaneous Daily(Non-Specified), Reported on 08/20/2024 ALPRAZolam 0.25 MG Oral Tablet (xaNAX)Indicat ions:Anxiety TAKE 1 TABLET BY MOUTH 3 TIMES A DAY NEEDED FOR ANXIETY 90 Tablet 07/11/19 25 8:56 AM EST 025 Active Amjevita 40 MG/0.4ML Subcutaneous Solution Auto-injector (Adalimumab-at to)Indications :Psoriasis vulgaris Inject 1 pen under the skin every 2 weeks 0.8 mL 5 07/24/19 25 1:04 PM EST 025 Active Additional Information Patient not taking.Reported on 08/20/2024 Omeprazole 20 MG Oral Capsule Delayed Release (PriLOSEC)Kalina cations:Gastro esophageal reflux disease without esophagitis TAKE ONE CAPSULE BY MOUTH EVERY DAY ONE HOUR BEFORE THE FIRST MEAL OF THE DAY 100 Capsule 2 07/31/19 25 2:35 PM EDT 025 2025 Active amLODIPine Besylate 10 MG Oral Tablet (Norvasc)Indic ations:HTN, goal below 140/90 Take 1 Tablet by mouth in the morning. 100 Tablet 3 08/02/19 25 8:40 AM EDT 025 Active Gabapentin 300 MG Oral Capsule (Neurontin)Ind ications:Restl ess leg syndrome Take 1 Capsule by mouth at bedtime. 025 Active Metoprolol Succinate ER 100 MG Oral Tablet Extended Release 24 Hour (toPROL XL) Take 1 Tablet by mouth in the morning. 100 Tablet 3 08/17/19 25 8:22 AM EDT 025 Active Spironolactone 25 MG Oral Tablet (Aldactone)Ind ications:Hyper tension goal BP (blood pressure) < 140/90 Take 1 Tablet by mouth in the morning. 025 Active Amitriptyline HCl 10 MG Oral Tablet (Elavil)Indica tions:Anxiety TAKE ONE TABLET BY MOUTH AT BEDTIME 025 Active Amitriptyline HCl 10 MG Oral Tablet (Elavil)Indica tions:Anxiety TAKE TWO TABLETS BY MOUTH AT BEDTIME 200 Tablet 3 024 2024 Discontinued Hospital, Clinic, or Other Facility Administered Medication Ordered Dose Route Frequency Start Date End Date Status Vitamin B-12 (Cyanocobalamin) inj 1,000 mcgIndications:Vitamin B 12 deficiency 1000 mcg IM [id number] 06/19/2024 05/21/2025 Active documented as of this encounter (statuses as of 08/23/2024) Active Problems Problem Noted Date Diagnosed Date Type 2 diabetes mellitus wit h diabetic peripheral angiopathy without gangrene 02/16/2023 Asymptomatic bilateral carotid artery stenosis 0 02/09/2022 Chronic kidney disease, stage 3a 11/03/2020 Overview: Per CKD protocol Type 2 diabetes mellitus wit h stage 3a chronic kidney disease and hypertension 09/29/2020 Overview: Per CKD protocol Gastroesophageal reflux disease without esophagi tis 06/25/2019 JD (generalized anxiety disorder) 06/25/2019 Psoriasis vulgaris 06/25/2019 Type 2 diabetes mellitus with diabetic polyneuro bryce 01/28/2019 Current use of insulin 03/30/2017 HTN, goal below 140/90 11/02/2015 Overview: Per HTN Protocol DYSLIPIDEMIA, GOAL LDL BELOW 100 05/05/2009 Overview (05/05/2009): Per Lipid Taxonomy. Type 2 diabetes mellitus wit h hemoglobin A1c goal of less than 8.0% 03/19/2009 Overview (09/17/2015): Per Diabetes Taxonomy. ICD-10 update of inactive term Restless leg syndrome 09/17/2007 Pernicious anemia 09/29/2003 GENERAL OSTEOARTHROSIS 06/12/2001 PAROX ATRIAL TACHYCARDIA History of pulmonary embolism documented as of this encounter (statuses as of 08/23/2024) Resolved Problems Problem Noted Date Diagnosed Date Resolved Date Psoriasis 07/17/2024 08/14/2024 Type 2 DM with CKD stage 3 and hypertension 03/30/2017 10/01/2020 Overview: Per CKD protocol Kidney disease, chronic, sta ge III (GFR 30-59 ml/min) 05/30/2016 09/01/2017 Overview: Per CKD protocol #1 Restless leg 08/22/2011 08/27/2012 GERD (gastroesophageal reflux disease) 08/22/2011 06/25/2019 HTN, goal below 140/80 05/20/201111/04 Overview: Per HTN Protocol DM TYPE 2 CAUSING NEURO DZ 03/19/2009 0 01/28/2019 Overview (03/19/2009): Per Diabetes Taxonomy. ADVANCE DIRECTIVE INFORMATION 09/30/2005 12/07/2016 Overview (09/30/2005): No, Advance Directive brochure offered , patient declined. Special screening for malign ant neoplasms, colon 09/30/2005 03/30/2017 Overview (09/30/2005): Colonoscopy 09/23- ~wnl x divertiuclae Av risk Dyslipidemia, goal to be determined 04/04/2005 05/05/2009 Overview (05/05/2009): Per Lipid Taxonomy. Encounter for long-term (cur rent) use of medications 09/29/2003 04/23/2018 Overview (03/14/2017): ICD-10 update of inactive term DIAB NEURO MANIF ADULT 07/07/200303/19 Overview (03/19/2009): Per Diabetes Taxonomy. Anxiety 05/23/2002 06/25/2019 EXTRAPYRAMIDAL DIS NEC 05/23/200203/30 Tinea corporis 05/23/2002 12/07/2016 Chest pain 12/07/2016 Esophagitis 01/28/2019 Overview (02/20/2017): ICD-10 update of inactive term Type 2 diabetes mellitus wit h hemoglobin A1c goal of less than 7.0% 03/19/2009 Overview (09/15/2015): Per Diabetes Taxonomy. ICD-10 update of inactive term HYPERTENSION NOS 04/14/2009 Overview (04/14/2009): Modified per HTN protocol #16. Other psoriasis 08/01/2024 documented as of this encounter (statuses as of 08/23/2024) Immunizations Name Administration Dates Next Due COVID-19 mRNA, LNP-s, No Pre serve, 2-Dose Series (Pfizer) 04/27/2021,08/08/2020,07/18/2020 COVID-19, LNP-s, No Preserve , Tian-sucrose, Ages 12+ (Pfizer) 10/12/2021 H1N1 2009 Influenza, IM 06/08/2009 Hepatitis B, 20+ yrs 02/16/2023,06/22/19 23,03/10/2022(Defer red: Contraindication),03/10/2022 Pneumococcal Conjugate Vacc, 13 Valent (Prevnar) 12/08/2014 Pneumococcal Conjugate Vacci ne, 20-valent ([id number]) 03/21/2024 Pneumococcal Polysaccharide PPV23 (Pneumovax) 04/24/2006 RSV Vac., Recomb, Adjuvant, PF,0.5 Ml (Arexvy) 03/21/2024 Season Influenza, Quad, PF, Adjuvanted, 65+ Yrs, IM (FLUAD) 02/05/2020 Seasonal Influenza Vac., MDV , IM, 0.5 mL (Fluzone) 02/07/2017,01/11/2016,02/02/2015,02/17,02/11/2013,02/27/2012,02/07/2011 ,02/24/2010,02/09/2009,03/25/2008,02/20,03/07/2006 Seasonal Influenza, High Dos e, Trivalent, PF, IM (Fluzone HD) 02/21/2024 Seasonal Influenza, PF, 6 M & above, IM , (FluLaval or Fluzone) 01/24/2018 Seasonal Influenza, Quadriva lent Hd (Fluzone Hd) 02/16/2023,02/09/2022,02/24/2021 Seasonal Influenza, Trivalen t, Adjuvanted, 65+ YRS, PF, (Fluad) 01/15/2019 TD - Tetanus/Diptheria (ADULT) 09/17/2007 TDAP (age 10 and older)(Boostrix) 06/22/2023, Varicella Zoster Vaccine Eder lt (Zostavax) 08/22/2011 Zoster Vaccine Recombinant (Shingrix) ,03/04/2020,11/15/2019,11/14 documented as of this encounter Social History Tobacco Use Types Packs/Day Years Used Date Smoking Tobacco: Never Passive Smoke Exposure: Never Smokeless Tobacco: Never Alcohol Use Standard Drinks/Week Comments No 0 (1 standard drink = 0.6 oz pur e alcohol) PHQ-2 Answer Date Recorded PHQ Adult Total Score 2 07/17/2024 Hunger Vital Sign Answer Date Recorded Within the past 12 months, y ou worried that your food would run out before you got the money to buy more. Never true 07/17/19 25 Within the past 12 months, t he food you bought just didn't last and you didn't have money to get more. Never true 07/17/2024 Childcare Answer Date Recorded Do you feel overwhelmed with taking care of a child, family member or friend? No 07/17/2024 Does your family need help f inding childcare? (Household - for ages 0-17 years) Not on file 07/17/2024 Clothing Answer Date Recorded Have you been unable to get clothing when it was really needed? No 07/17/2024 Is your family able to get c lothes or diapers when needed? (Household - for ages 0-17 years) Not on file 07/17/2024 Personal Safety Answer Date Recorded Do you feel unsafe or have concerns for your saf ety? No 07/17/2024 Do you have concerns for you r family's safety? (Household - for ages 0-17 years) Not on file 07/17/2024 Utilities Answer Date Recorded Do you have trouble paying y our heating, water, or electric bill? No 07/17/2024 Is your family able to pay t he heat, water, or electric bill? (Household - for ages 0-17 years) Not on file 07/17/2024 Does your family have access to good internet? (Household - for ages 0-17 years) Not on file 07/17/2024 Employment Status Answer Date Recorded Are you unemployed or without regular income? No 07/17/2024 Does the household have a re gular source of income? (Household - for ages 0-17 years) Not on file 07/17/2024 Social Connections Answer Date Recorded How often do you feel lonely or isolated from th ose around you? Never 07/17/2024 Financial Resource Strain Answer Date R ecorded Do you have any trouble payi ng for your medications, or do you think you might in the future? No 07/17/2024 Does your family have troubl e paying for medicine? (Household - for ages 0-17 years) Not on file 07/17/2024 Transportation Needs Answer Date Record ed Do you have trouble getting a ride to medical visits or work? (Adult - for ages 18 years and over) Not on file 07/17/2024 Does your family have a hard time getting a ride to doctors visits? (Household - for ages 0-17 years) Not on file 07/17/2024 Has lack of transportation k ept you from medical appointments, meetings, work, or from getting things needed for daily living? Check all that apply. No 07/17/2024 Do you (or your family) have trouble finding or paying for a ride (transportation)? (Household - for ages 0-17 years) Not on file 07/17/2024 Housing Stability Answer Date Recorded Do you currently live in a s helter or have no steady place to sleep at night? No 07/17/2024 Do you think you are at risk of becoming homeless? (Adult - for ages 18 years and over) Not on file 07/17/2024 Does your family worry about paying for your home or becoming homeless? (Household - for ages 0-17 years) Not on file 0 07/17/2024 Are you homeless or worried that you might be in the future? No 07/17/2024 Are you (or your family) renetta eless or worried that you might be in the future? (Household - for ages 0-17 years) Not on file Food Insecurity Answer Date Recorded Do you need food for this week? No 06/22/2023 Are you able to get enough f ood for your family? (Household - for ages 0-17 years) Not on file 06/22/2023 Does your family need food t his week? (Household - for ages 0-17 years) Not on file 06/22/2023 Do you always have enough fo od for your family? (Household - for ages 0-17 years) Not on file 06/22/2023 Food Insecurity Answer Date Recorded Within the past 12 months, y ou worried that your food would run out before you got the money to buy more. Never true 07/17/19 25 Within the past 12 months, t he food you bought just didn't last and you didn't have money to get more. Never true 07/17/2024 Do you need food for this week? 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 Dukes. Pt acknowledged understanding. Doesnot want new script, states she still has Amlodipine available. Reviewed with pt that she is to take 1 tablet instead of 2 tablets (prior script instructed to take 2 tablets). Pt acknowledged. Medication change pended as Historical. * Telephone Encounter - Alan Dukes DO - 08/23/2024 11:57 AM EDT For leg cramps restart Amitriptyline at 10 mg before bed every day. * Telephone Encounter - Nimo Garcia LPN - 08/23/2024 9:53 AM EDT Call placed to patient and relayed information from Dr. Dukes. Pt acknowledged understanding. States she was able to get urine specimen and daughter will be dropping off today. Pt requests information from Dr. Dukes also be sent through her MyG. Dr. Dukes - Pt reports that she is having cramps in both legs - this has been going on for past 1-2 weeks. Lab order pended. * Telephone Encounter - Nimo Garcia LPN - 08/23/2024 9:49 AM EDT ----- Message from Alan Dukes DO sent at 08/22/2024 3:54 PM EDT ----- Sodium is still low. Cortisol and TSH are OK. Fluid restrict to 1.5 quarts a day. Repeat BMP in 1 week. documented in this encounter Plan of Treatment Upcoming Encounters Date Type Department Care Team (Late st Contact Info) Description 08/27/2024 11:20 AM EDT Office Visit Family Practice [address] [place] [address] Alan Dukes DO [address] [facility] [place] [address] 08/30/2024 10:10 AM EDT Telemedicine Family Practice [address] [place] [address] College, Pharmacist [address] [place] [address] 09/16/2024 10:00 AM EDT Nurse Only Family Practice [facility] [address] [place] [address] College, Nurse Fam Prac [address] [place] [address] 10/17/2024 10:00 AM EDT Nurse Only Family Practice [address] [place] [address] College, Nurse Fam Prac [address] [place] [address] 11/07/2024 10:00 AM EDT Office Visit Family Practice 65 [facility] [place] [address] [place] [phone] Alan Dukes, DO [address] [facility] [place] [address] 11/13/2024 10:15 AM EDT Office Visit Orthopaedics [facility] [address] [place] [address] Braulio Holly, DO [address] [place] [address] Scheduled Orders Name Type Priority Associated Diagnoses Orde r Schedule BASIC METABOLIC PANEL Lab Routine Low sodium levels Expected: 08/30/2024 (Approximate), Expires: 08/23/2025 Scheduled Procedures Name Priority Associated Diagnoses Date/Ti me COLONOSCOPY FLEXIBLE PROXIMAL DIAGNOSTIC Recall History of colon polyps Health Maintenance Due Date Last Done Comments Adult Wellness Visit 2007 Diabetic Foot Exam 09/19/2024 09/20/2023, 0 10/13/2022, 01/06/2022, Additional history exists Diabetic Eye Exam 12/06/2024 12/07/2023, , 12/07/2023, Additional history exists HbA1c 01/14/2025 07/17/2024, 02/21, 11/09/2023, Additional history exists GFR 02/19/2025 08/20/2024, 032 10/2024, 03/21/2024, Additional history exists Albumin/Creatinine Ratio 02/20/2025 024, 04/06/2023, 02/16/2023, Additional history exists CKD PHOS USE SMARTSET 96873 03/21/202502/21, 02/16/2023, 02/09/2022, Additional history exists Depression Screening 07/17/2025 07/17/2024 CKD HGB USE SMARTSET [id number] 08/20/202508/20, 08/20/2024, 11/09/2023, Additional history exists DXA Scan 02/20/2031 02/21/2024, 06/2023, 07/14/2014, Additional history exists DTap/Tdap Vaccines (3 - Td or Tdap) 06/22/2033 06/22/2023, 01/07/2013, 09/17/2007, Additional history exists Colonoscopy Discontinued 09/20/2017, 06/2017, 05/07/2013, Additional history exists RETIRED - COLONOSCOPY-EVERY 5 YRS AGES 18-100 Discontinued 09/20/2017, 09/20/2017, 05/07/2013, Additional history exists Zoster Vaccines Completed 03/04/2020, 02/19, 11/15/2019, Additional history exists COVID-19 Vaccine Discontinued 10/12/2021, 11/2020, 08/08/2020, Additional history exists Hepatitis B Vaccine Completed 02/16/2023, 06/22/2022, 03/10/2022 Influenza Vaccine (FLU shot) Completed 02/21/2024, 02/21/2024, 02/16/2023, Additional history exists Pneumococcal Vaccine: 50+ Years Completed 03/21/2024, 12/08/2014, 04/24/2006, Additional history exists HPV (Gardasil) Vaccine Aged Out No lo nger eligible based on patient's age to complete this topic MENINGOCOCCAL (MENACTRA/MENVEO) Aged Out No longer eligible based on patient's age to complete this topic Meningitis B Vaccine (Bexsero/Trumemba) Aged Out No longer eligible based on patient's age to complete this topic documented as of this encounter Medical Devices Not on filedocumented as of this encounter Visit Diagnoses Diagnosis Low sodium levels- Primary Hyposmolality and/or hyponatremia Anxiety Anxiety state, unspecified documented in this encounter Care Teams Consumer Safety Inspector Relationship Specialty Start Date End Date Alan Dukes DO [address] [facility] [place] [address] PCP - General Internal Medicine 11/02/23 documented as of this encounter
--- OUTSIDE RECORDS SUMMARY | 2024-08-24 06:04 | External Medical Summary | Summary of Care ---
Author Name Unknown Organization [facility] Address [address] [facility] [place] [address] Phone [phone] Care Team Providers Care Underground Miner Name Role Phone Alan Dukes DO Primary Care Provider [phone] Reason for Visit * Reason Comments Dosage Adjustment Via Phone (anticoag Cl inic) Hypertension Encounter Details Date Type Department Care Team (Late st Contact Info) Description 08/23/2024 11:00 AM EDT Telemedicine Family Practice 65 [facility] 293 [place] [address] [place], Pharmacist [address] [address] Hypertension goal BP (blood pressure) < 140/90* Allergies Active Allergy Reactions Criticality Noted Date [...] dinner. Then increase dose as directed by [facility] pharmacist (max 15 units daily) 15 mL 3 07/31/19 25 2:35 PM EDT 024 Active Additional Information Patient taking differently: 12-14 UnitsSubcutaneous BEFORE DINNER, Then increase dose as directed by [facility] pharmacist (max 15 units daily), Reported [...] DAY NEEDED FOR ANXIETY 90 Tablet 07/11/19 8:56 AM EST 025 Active Amjevita 40 [...] mcgIndications:Vitamin B 12 deficiency 1000 mcg IM [id number] 06/19/2024 05/21/2025 Active documented as of this [...] mRNA, LNP-s, No Pre serve, 2-Dose Series (EarlyTracks) 04/27/2021,08/08/2020,07/18/2020 COVID-19, LNP-s, No Preserve , Tian-sucrose, Ages 12+ (Pfizer) 10/12/2021 H1N1 2009 Influenza, IM 06/08/2009 Hepatitis B, 20+ yrs 02/16/2023,06/22/19 23,03/10/2022(Defer red: Contraindication),03/10/2022 Pneumococcal Conjugate Vacc, 13 Valent (Prevnar) 12/08/2014 Pneumococcal Conjugate Vacci ne, 20-valent ([id number]) 03/21/2024 Pneumococcal Polysaccharide PPV23 (Pneumovax) 04/24/2006 RSV [...] 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 Referred for HTN management by Dr. Dukes. Blood pressure goal: < 140/90 Duration of HTN diagnosis: 2016 Previous medication use: - Amlodipine 5 mg - Atenolol 50, 100 mg - Hydrochlorothiazide 25 mg - stopped due to low sodium - lisinopril 20 mg - hx of cough with - Losartan 50 mg - hx of hyperkalemia with Any contraindications to HTN medications: No CI but precaution to low sodium, high potassium, and decreased renal function Current medications which can be elevating BP: none Medication compliance: Yes compliant to medications despite all of the changes Diet review: not reviewed Exercise review: not reviewed ASCVD 10-Year Risk Score Current as of about an hour ago N/A 0 to < 5 Points: Low Risk 5 to < 7.5 Points: Borderline Risk 7.5 to < 20 Points: Intermediate Risk 20 to 100 Points: High Risk Last Change: N/A The ASCVD risk score (Crow MANDA Jr, et al., 2013) returns the percentage likelihood of a first time ASCVD event. This score is not applicable to this patient. Components are not calculated. Does patient monitor BP at home? yes Does patient monitor HR at home? yes SBP DBP Pulse 1-Apr 152 88 66 2-Apr 163 73 70 3-Apr 159 79 68 4-Apr 167 69 57 Average 160 77 65 Hi 167 88 70 Lo 152 69 57 Range 15 19 13 Patient Active Problem List Diagnosis GENERAL OSTEOARTHROSIS Pernicious anemia PAROX ATRIAL TACHYCARDIA History of pulmonary embolism Restless leg syndrome Type 2 diabetes mellitus with hemoglobin A1c goal of less than 8.0% (HCC) DYSLIPIDEMIA, GOAL LDL BELOW 100 HTN, goal below 140/90 Current use of insulin (HCC) Type 2 diabetes mellitus with diabetic polyneuropathy (HCC) Gastroesophageal reflux disease without esophagitis JD (generalized anxiety disorder) Psoriasis vulgaris Type 2 diabetes 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 hypertension (HCC) Chronic kidney disease, stage 3a (HCC) Asymptomatic bilateral carotid artery stenosis Type 2 diabetes mellitus with diabetic peripheral angiopathy without gangrene (HCC) Review of patient's allergies indicates: Allergen Reactions Bactroban Rash Lisinopril Cough Losartan Other (Please comment) hyperkalemia Propoxyphene Unknown Darvon Objective: BP Readings from Last 3 Encounters: 08/20/24 136/64 08/19/24 156/64 08/14/24 132/66 Pulse Readings from Last 3 Encounters: 08/20/24 65 08/19/24 58 08/14/24 65 Wt Readings from Last 3 Encounters: 08/20/24 168 lb 9.6 oz (76.5 kg) 08/19/24 166 lb 12.8 oz (75.7 kg) 08/14/24 168 lb 8 oz (76.4 kg) No results found for: "MICROALBUMIN" Current Hypertension Medication(s): Amlodipine 10 mg once a day Metoprolol ER 100 mg once a day - Just switched from atenolol (08/15) patient reports started the beginning of this week Spironolactone 25 mg once a day - increased from 12.5 mg (08/20) Amitriptyline 10 mg - not taken for a long time about a month Assessment & Plan: Takes BP between 8-9 am before her morning blood pressure medications. Advised her to take blood pressures an hour after taking her medications so that can we assess how her medications are working for her. States that her HR feels like it races at times and is beating in her head. Also states that it is likely related to her stress as it resolves when she sits down. Notes that she continues to have leg cramps and fatigue. Possibly due to low sodium or due to the absence of amitriptyline as this has been ongoing for a few weeks. States that daughter is bringing in urine sample today. Reviewed medications and compliance. Patient is compliant with her medications and does not note any side effects at this time. Medication changes: None. Would like to hold off on numerous changes this week and allow gathering of BP readings post medications. Also would like to assess updated blood work after increase of spironolactone. Labs Due: BMP next week Follow up: PCP 08/27 I spent a total of 10-19 minutes (exact time 19 mins) on the date of service in preparation, delivery, and documentation of the care provided to Anabell Cook excluding any time spent in the performance of separately billed services or time spent by another provider/QHP. Marcella Higgins [facility] Clinical Pharmacist 11:06 AM, 08/23/24 documented in this encounter Plan of Treatment Upcoming Encounters Date Type Department Care Team (Late st Contact Info) Description 08/27/2024 11:20 AM EDT Office Visit Family Practice [address] [place] [phone] Alan Dukes DO 293 [place] [address] 08/30/2024 10:10 AM EDT Telemedicine Family Practice [address] [place] [address] College, Pharmacist [address] [place] [address] 09/16/2024 10:00 AM EDT Nurse Only Family Practice [address] [place] [address] College, Nurse Fam Prac [address] [place] [address] 10/17/2024 10:00 AM EDT Nurse Only Family Practice [address] [place] [address] College, Nurse Fam Prac [address] [place] [address] 11/07/2024 10:00 AM EDT Office Visit Family Practice 65 [facility] [place] 293 [place] [phone] Alan Dukes, DO [address] [place] [address] 11/13/2024 10:15 AM EDT Office Visit Orthopaedics [facility] [address] [place] [phone] Braulio Holly, DO [address] [place] [address] Scheduled Procedures Name Priority Associated Diagnoses Date/Ti me COLONOSCOPY FLEXIBLE PROXIMAL DIAGNOSTIC Recall History of colon polyps Health Maintenance Due Date Last Done Comments Adult Wellness Visit 2007 Diabetic Foot Exam 09/19/2024 09/20/2023, 0 10/13/2022, 01/06/2022, Additional history exists Diabetic Eye Exam 12/06/2024 12/07/2023, , 12/07/2023, Additional history exists HbA1c 01/14/2025 07/17/2024, 02/21, 11/09/2023, Additional history exists GFR 02/19/2025 08/20/2024, 07/21, 03/21/2024, Additional history exists Albumin/Creatinine Ratio 02/20/2025 024, 04/06/2023, 02/16/2023, Additional history exists CKD PHOS USE SMARTSET 81308 03/21/202502/21, 02/16/2023, 02/09/2022, Additional history exists Depression Screening 07/17/2025 07/17/2024 CKD HGB USE SMARTSET 89616 08/20/202508/20, 08/20/2024, 11/09/2023, Additional history exists DXA [...] as of this encounter Visit Diagnoses Diagnosis Hypertension goal BP (blood pressure) < 140/90- Primary Unspecified essential hypertension documented in this encounter Care Teams Underground Miner Relationship Specialty Start Date End Date Alan Dukes DO [address] [facility] [place] [address] PCP - General Internal Medicine 11/02/23 documented as of this encounter
--- OUTSIDE RECORDS SUMMARY | 2024-08-24 06:04 | External Medical Summary | Summary of Care ---
Author Name Unknown Organization [facility] Address [address] [facility] [address] Phone [phone] Care Team Providers Care Music Specialist Name Role Phone Alan Dukes DO Primary Care Provider Reason for Visit * Reason Onset Date Comments Other 08/22/2024 Advice 08/22/202408/22 Encounter Details Date Type Department Care Team (Late st Contact Info) Description 08/22/2024 Telephone Family Practice 65 [facility] 293 [place] [address] Alan Dukes DO 293 [place] [address] Other; Advice (08/22) Allergies Active Allergy Reactions Criticality Noted Date Comments Bactroban Rash 03/02/2010 Lisinopril Cough 12/24/2011 Losartan Other (Please comment) 07/20/2022 hyperkalemia Propoxyphene Unknown 12/27/1999 Darvon documented as of this encounter (statuses as of 08/22/2024) Medications LANCET DEVICE MISCIndications :DM type 2, goal A1c below 7 use bid for 250.00 100 5 06/11/19 08 Active ONETOUCH ULTRA SYSTEM W/DEVICE KITIndications: DM type 2, goal A1c below 7 Use up to four times a day as directed 1 Kit 0 04/19/20 11 Active OSTEO BI-FLEX ADV TRIPLE ST PO TABS Take 1 Tab by mouth 2 times a day. Active ASPIRIN EC 81 MG PO TBECIndications :HTN, goal below 140/80 1 TABLET DAILY 99 Tab 99 11/02/19 14 Active Turmeric 500 MG Oral Capsule Take 1 Capsule by mouth at bedtime. 10/07/19 22 Active Centrum Silver 50+Women Oral Tablet Take 1 Tablet by mouth in the morning. 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 (HCC) USE TO TEST BLOOD SUGAR 3 TIMES DAILY 300 Strip 3 4 10:43 AM EST 11/01/19 24 025 Active Unifine Pentips 31G X 8 MM (Insulin Pen Needle) Use to inject Xultophy daily 100 Each 3 5 1:36 PM EST 12/26/19 24 025 Active Simvastatin 20 MG Oral Tablet (Zocor)Indicati ons:Dyslipidemi a, goal LDL below 100 TAKE ONE TABLET BY MOUTH AT BEDTIME 100 Tablet 1 5 8:22 AM EDT 02/28/20 24 025 Active NovoLOG FlexPen 100 UNIT/ML Subcutaneous Solution Pen-injector (insulin aspart)Indicati ons: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 Then increase dose as [facility] (max 15 units daily) 15 mL 3 5 2:35 PM EDT 05/20/20 24 Active Additional Information Patient taking differently: 12-14 UnitsSubcutaneous BEFORE DINNER, Then increase dose as directed by [facility] pharmac[facility] (max 15 units daily), Reported on 08/20/2024 Xultophy 100-3.6 UNIT-MG/ML Subcutaneous Solution Pen-injector (Insulin Degludec-Liragl utide)Indicatio ns:Type 2 diabetes 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 hypertension (HCC) Inject 28 Units under the skin daily. 30 mL 1 5 7:08 AM EST 06/26/19 25 Active Additional Information Patient taking differently: 30 UnitsSubcutaneous Daily(Non-Specified), Reported on 08/20/2024 ALPRAZolam 0.25 MG Oral Tablet (xaNAX)Indicati ons:Anxiety TAKE 1 TABLET BY MOUTH 3 TIMES A DAY NEEDED FOR ANXIETY 90 Tablet 5 8:56 AM EST 07/10/19 25 Active Amjevita 40 MG/0.4ML Subcutaneous Solution Auto-injector (Adalimumab-att o)Indications:P soriasis vulgaris Inject 1 pen under the skin every 2 weeks 0.8 mL 5 5 1:04 PM EST 07/17/19 25 Active Additional Information Patient not taking.Reported on 08/20/2024 Omeprazole 20 MG Oral Capsule Delayed Release (PriLOSEC)Indic ations:Gastroes ophageal reflux disease without esophagitis TAKE ONE CAPSULE BY MOUTH EVERY DAY ONE HOUR BEFORE THE FIRST MEAL OF THE DAY 100 Capsule 2 5 2:35 PM EDT 07/26/19 25 026 Active amLODIPine Besylate 10 MG Oral Tablet (Norvasc)Indica tions:HTN, goal below 140/90 Take 1 Tablet by mouth in the morning. 100 Tablet 3 5 8:40 AM EDT 07/30/19 25 Active Gabapentin 300 MG Oral Capsule (Neurontin)Kalina cations:Restles s leg syndrome Take 1 Capsule by mouth at bedtime. 08/15/19 25 Active Metoprolol Succinate ER 100 MG Oral Tablet Extended Release 24 Hour (toPROL XL) Take 1 Tablet by mouth in the morning. 100 Tablet 3 5 8:22 AM EDT 08/16/19 25 Active Spironolactone 25 MG Oral Tablet (Aldactone)Kalina cations:Hyperte nsion goal BP (blood pressure) < 140/90 Take 1 Tablet by mouth in the morning. 08/21/19 25 Active Hospital, Clinic, or Other Facility Administered Medication Ordered Dose Route Frequency Start Date End Date Status Vitamin B-12 (Cyanocobalamin) inj 1,000 mcgIndications:Vitamin B 12 deficiency 1000 mcg IM [id number] 06/19/2024 05/21/2025 Active documented as of this encounter (statuses as of 08/22/2024) Active Problems Problem Noted Date Diagnosed Date [...] as of this encounter (statuses as of 08/22/2024) Resolved Problems Problem Noted Date Diagnosed Date [...] as of this encounter (statuses as of 08/22/2024) Immunizations Name Administration Dates Next Due COVID-19 mRNA, LNP-s, No Pre serve, 2-Dose Series (DraftDay) 04/27/2021,08/08/2020,07/18/2020 COVID-19, LNP-s, No Preserve , Tian-sucrose, Ages 12+ (Pfizer) 10/12/2021 H1N1 2009 Influenza, IM 06/08/2009 Hepatitis B, 20+ yrs 02/16/2023,06/22/19 23,03/10/2022(Defer red: Contraindication),03/10/2022 Pneumococcal Conjugate Vacc, 13 Valent (Prevnar) 12/08/2014 Pneumococcal Conjugate Vacci ne, 20-valent ([id number]) 03/21/2024 Pneumococcal Polysaccharide PPV23 (Pneumovax) 04/24/2006 RSV [...] 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 Dukes. Pt acknowledged understanding. * Telephone Encounter - Alan Dukes DO - 08/22/2024 10:57 AM EDT Patient may do urine test on Monday * Telephone Encounter - Anupam Torres MED ASSIST - 08/22/2024 8:48 AM EDT Patient called in wanting to speak to a nurse about if it is okay for her to do the urine test Monday while she has an appointment here? Patient states she wasn't able to give a urine sample at [facility] while she got her blood work done. documented in this encounter Plan of Treatment Upcoming Encounters Date Type Department Care Team (Late st Contact Info) Description 08/23/2024 11:00 AM EDT Telemedicine Family Practice 65 [facility] 293 [facility] [place] [address] College, Pharmacist [address] [place] [address] 08/27/2024 11:20 AM EDT Office Visit Family Practice 65 [facility] [address] [facility] [place] [address] Alan Dukes, DO 293 [place] [address] 09/16/2024 10:00 AM EDT Nurse Only Family Practice 65 [facility] [address] [facility] [place] [address] College, Nurse Fam Prac [address] [place] [address] 10/17/2024 10:00 AM EDT Nurse Only Family Practice 65 [facility] 293 [facility] [place] [address] [place], Nurse Fam Prac [address] [place] [address] 11/07/2024 10:00 AM EDT Office Visit Family Practice 65 [facility] 293 [facility] [place] [address] Alan Dukes, DO [address] [place] [address] 11/13/2024 10:15 AM EDT Office Visit Orthopaedics [facility] [address] [place] [address] Braulio Holly, DO [address] [place] [address] Scheduled Procedures Name Priority Associated Diagnoses Date/Ti me COLONOSCOPY FLEXIBLE PROXIMAL DIAGNOSTIC Recall History of colon polyps Health Maintenance Due Date Last Done Comments Adult Wellness Visit 2007 *NEPHROLOGY REFERRAL DUE TO RESISTANT HTN 08/21/2024 Diabetic Foot Exam 09/19/2024 09/20/2023, 0 10/13/2022, 01/06/2022, Additional history exists Diabetic Eye Exam 12/06/2024 12/07/2023, , 12/07/2023, Additional history exists HbA1c 01/14/2025 07/17/2024, 02/21, 11/09/2023, Additional history exists GFR 02/19/2025 08/20/2024, 07/21, 03/21/2024, Additional history exists Albumin/Creatinine Ratio 02/20/2025 024, 04/06/2023, 02/16/2023, Additional history exists CKD PHOS USE SMARTSET 53116 03/21/202502/21, 02/16/2023, 02/09/2022, Additional history exists Depression Screening 07/17/2025 07/17/2024 CKD HGB USE SMARTSET 81012 08/20/202508/20, 08/20/2024, 11/09/2023, Additional history exists DXA [...] Not on filedocumented as of this encounter Care Teams Music Specialist Relationship Specialty Start Date End Date Alan Dukes DO [address] [place] [address] PCP - General Internal Medicine 11/02/23 documented as of this encounter
--- OUTSIDE RECORDS SUMMARY | 2024-08-24 06:04 | External Medical Summary ---
Author Name Unknown Address Unknown Organization [id number]:[facility] [place] - [address] [place] [address] Laboratory Report Ordering Provider Test Date Status JONO KATE 08/23/2024 12:04:29 Final Observation Date Value Abnormality Reference (Units ) Status Osmolality, Urine 08/23/2024 12:04:29 214 50 -1200 (mOsm/kg) Final Performing Location [facility] - [address] [place] [address]
--- OUTSIDE RECORDS SUMMARY | 2024-08-24 06:04 | External Medical Summary ---
Author Name Unknown Address Unknown Organization K01:[facility] [place] - [address] [place] [address] Laboratory Report Ordering Provider Test Date Status JONO KATE 08/23/2024 12:04:46 Final Observation Date Value Abnormality Reference (Units ) Status Sodium, Urine 08/23/2024 12:04:46 41 (mmol/ L) Final Performing Location LABORATORY [facility] - [address] [place] [address]
--- OUTSIDE RECORDS SUMMARY | 2024-08-24 06:05 | External Medical Summary | Summary of Care ---
Author Name Unknown Organization [facility] Address [address] [facility] [address] Phone [phone] Care Team Providers Care Burner Technician Name Role Phone Alan Dukes DO Primary Care Provider [phone] Reason for Visit * Reason Onset Date Comments Test Results 08/21/202408/21 Encounter Details Date Type Department Care Team (Late st Contact Info) Description 08/21/2024 Telephone Family Practice 65 [facility] [address] [place] [address] Alan Dukes DO 293 [place] [address] Test Results (08/21) Allergies Active Allergy Reactions Criticality Noted Date Comments Bactroban Rash 03/02/2010 Lisinopril Cough 12/24/2011 Losartan Other (Please comment) 07/20/2022 hyperkalemia Propoxyphene Unknown 12/27/1999 Darvon documented as of this encounter (statuses as of 08/21/2024) Medications LANCET DEVICE MISCIndications :DM type 2, [...] dinner. Then increase dose [facility] (max 15 units daily) 15 mL 3 5 2:35 PM EDT 05/20/20 24 Active Additional Information Patient taking differently: 12-14 UnitsSubcutaneous BEFORE DINNER, Then increase dose as directed by [facility] pharmacist (max 15 units daily), Reported on [...] mcgIndications:Vitamin B 12 deficiency 1000 mcg IM [id number] 06/19/2024 05/21/2025 Active documented as of this encounter (statuses as of 08/21/2024) Active Problems Problem Noted Date Diagnosed Date [...] as of this encounter (statuses as of 08/21/2024) Resolved Problems Problem Noted Date Diagnosed Date [...] as of this encounter (statuses as of 08/21/2024) Immunizations Name Administration Dates Next Due COVID-19 mRNA, LNP-s, No Pre serve, 2-Dose Series (Heal[employer]) 04/27/2021,08/08/2020,07/18/2020 COVID-19, LNP-s, No Preserve , Tian-sucrose, Ages 12+ (Pfizer) 10/12/2021 H1N1 2009 Influenza, IM 06/08/2009 Hepatitis B, 20+ yrs 02/16/2023,06/22/19 23,03/10/2022(Defer red: Contraindication),03/10/2022 Pneumococcal Conjugate Vacc, 13 Valent (Prevnar) 12/08/2014 Pneumococcal Conjugate Vacci ne, 20-valent ([id number]) 03/21/2024 Pneumococcal Polysaccharide PPV23 (Pneumovax) 04/24/2006 RSV [...] the money to buy more. 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 Dukes. Pt acknowledged understanding. Aware to have lab work done at [facility] tomorrow morning. States she will contact her daughter to make transportation arrangements. * Telephone Encounter - Aliza Alvarenga LPN - 08/21/2024 2:33 PM EDT Called client services, labs that are under process are canceled. Patient will need to go to [facility] tomorrow for labs. Thank you * Telephone Encounter - Alan Dukes DO - 08/21/2024 2:10 PM EDT Cannot do labs off of existing blood. * Telephone Encounter - Aliza Alvarenga LPN - 08/21/2024 1:[address] Dukes, can we do labs off of existing blood? Are urines random or 24 hour? If not, orders will have to be changed. Thank you If not, unable to do today. Will have done tomorrow am at 0800 at [facility]. * Telephone Encounter - Nimo Garcia LPN - 08/21/2024 1:23 PM EDT ----- Message from Alan Dukes DO sent at 08/21/2024 10:22 AM EDT ----- Sodium has decreased Check TSH, AM cortisol, serum sodium, serum osm, urine sodium, and Urine OSM today documented in this encounter Plan of Treatment Upcoming Encounters Date Type Department Care Team (Late st Contact Info) Description 08/23/2024 11:00 AM EDT Telemedicine Family Practice [address] [place] [phone] College, Pharmacist [address] [place] [address] 08/27/2024 11:20 AM EDT Office Visit Family Practice [address] [place] [address] Alan Dukes DO 293 [place] [address] 09/16/2024 10:00 AM EDT Nurse Only Family Practice 65 [facility] 293 [facility] [place] [address] College, Nurse Fam Prac [address] [place] [address] 10/17/2024 10:00 AM EDT Nurse Only Family Practice [address] [place] [address] College, Nurse Fam Prac [address] [place] [address] 11/07/2024 10:00 AM EDT Office Visit Family Practice 65 [facility] 293 [facility] [place] [address] Alan Dukes, DO 293 [place] [address] 11/13/2024 10:15 AM EDT Office Visit Orthopaedics [facility] [address] [place] [address] Braulio Holly, DO [address] [place] [address] Scheduled Orders Name Type Priority Associated Diagnoses Orde r Schedule SODIUM, RANDOM URINE Lab Routine Low serum sodium Expected: 08/21/2024 (Approximate), Expires: 08/21/2025 OSMOLALITY, URINE Lab Routine Low serum sodium Expected: 08/21/2024 (Approximate), Expires: 08/21/2025 TSH Lab Routine Low serum sodium Expected: 08/21/2024 (Approximate), Expires: 08/21/2025 SODIUM Lab Routine Low serum sodium Expected: 08/21/2024 (Approximate), Expires: 08/21/2025 CORTISOL Lab Routine Low serum sodium Expected: 08/21/2024 (Approximate), Expires: 08/21/2025 OSMOLALITY, SERUM Lab Routine Low serum sodium Expected: 08/21/2024, Expires: 08/21/2025 Scheduled Procedures Name Priority Associated Diagnoses Date/Ti me COLONOSCOPY FLEXIBLE PROXIMAL DIAGNOSTIC Recall History of colon polyps Health Maintenance Due Date Last Done Comments Adult Wellness Visit 2007 *NEPHROLOGY REFERRAL DUE TO RESISTANT HTN 08/21/2024 Diabetic Foot Exam 09/19/2024 09/20/2023, 0 10/13/2022, 01/06/2022, Additional history exists Diabetic Eye Exam 12/06/2024 12/07/2023, , 12/07/2023, Additional history exists HbA1c 01/14/2025 07/17/2024, 1005/2023, 11/09/2023, Additional history exists GFR 02/19/2025 08/20/2024, 03/2 10/2024, 03/21/2024, Additional history exists Albumin/Creatinine Ratio 02/20/2025 024, 04/06/2023, 02/16/2023, Additional history exists CKD PHOS USE SMARTSET 19854 03/21/202502/21, 02/16/2023, 02/09/2022, Additional history exists Depression Screening 07/17/2025 07/17/2024 CKD HGB USE SMARTSET 71274 08/20/202508/20, 08/20/2024, 11/09/2023, Additional history exists DXA [...] of this encounter Visit Diagnoses Diagnosis Low serum sodium- Primary documented in this encounter Care Teams Burner Technician Relationship Specialty Start Date End Date Alan Dukes DO [address] [place] [address] PCP - General Internal Medicine 11/02/23 documented as of this encounter
--- OUTSIDE RECORDS SUMMARY | 2024-08-24 06:05 | External Medical Summary | Summary of Care ---
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 Then increase dose as [facility] (max 15 units daily) 15 mL 3 5 2:35 PM EDT 05/20/20 24 Active Additional Information Patient taking differently: 12-14 UnitsSubcutaneous BEFORE DINNER, Then increase dose as directed by [facility] (max 15 units daily), Reported on [...] mcgIndications:Vitamin B 12 deficiency 1000 mcg IM [id number] 06/19/2024 05/21/2025 Active documented as of this [...] mRNA, LNP-s, No Pre serve, 2-Dose Series ([employer]) 04/27/2021,08/08/2020,07/18/2020 COVID-19, LNP-s, No Preserve , Tian-sucrose, Ages 12+ (Pfizer) 10/12/2021 H1N1 2009 Influenza, IM 06/08/2009 Hepatitis B, 20+ yrs 02/16/2023,06/22/19 23,03/10/2022(Defer red: Contraindication),03/10/2022 Pneumococcal Conjugate Vacc, 13 Valent (Prevnar) 12/08/2014 Pneumococcal Conjugate Vacci ne, 20-valent ([id number]) 03/21/2024 Pneumococcal Polysaccharide PPV23 (Pneumovax) 04/24/2006 RSV [...] 10 and older)(Boostrix) 06/22/2023, Varicella Zoster Vaccine (Adult) 08/22/2011 Zoster Vaccine Recombinant (Shingrix) ,03/04/2020,11/15/2019,11/14 documented [...] 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 Reason for referral: HTN Please Schedule patient. Referring provider: Dr. Dukes Initial appt length: 30 min Appointment type indicated: Pt Prefence- Inperson or Video Referral reviewed and relevant pre-visit information listed below: HTN: Goal BP per referral: < 140/90 BP Readings from Last 3 Encounters: 08/20/24 136/64 08/19/24 156/64 08/14/24 132/66 HCTZ stopped 08/16/24 due to decreased renal function History of hyperkalemia on losartan, cough on lisinopril Current HTN Medications: Amlodipine 10 mg daily Metoprolol ER 100mg daily (switched from atenolol 08/15/24) Spironolactone 25 mg daily (started 08/16/24, increased 08/20/24) Abiola Santoro RPh 08/20/2024, 3:30 PM * Telephone Encounter - Diana Majano CPhT - 08/20/2024 3:01 PM EDT Comments Pharmacist Medication Therapy Management: Minimum frequency patient should be seen in person for medication management: as appropriate per clinical condition and patient status By my signature, I understand that my patient Anabell Cook will have her medication therapy managed by the [facility] Medication Therapy Disease Management [facility] ([facility]) per established policies, procedures, and protocols. I also certify that this referral may serve as an initiation of service for the management of drug therapy in the above noted patient. [facility] providers will be responsible for scheduling patient visits, obtaining appropriate laboratory studies, and adjusting medication management therapy per patient's need, in addition to those roles spelled out in the clinic policy, procedures, and drug management protocols. I understand that the service provided by the [facility] Clinic is voluntary and have informed patient that they can refuse the service at their discretion. I am aware that the [facility] Clinic will provide me with a copy of the patient encounter via my TextHub. I authorize the [facility] to carry out these activities on my behalf. I consider this program to be a necessary part of the patient's medical care. Alan Dukes DO Order Specific Questions Referral Priority Within 3 days (urgent) Where should this appointment be scheduled? [facility] Referring Provider Role: Primary Care Reason for Referral: HTN Goal BP: < 140/90 documented in this encounter Plan of Treatment Upcoming Encounters Date Type Department Care Team (Late st Contact Info) Description 08/23/2024 11:00 AM EDT Telemedicine Family Practice [address] [place] [phone] College, Pharmacist [address] [place] [address] 08/27/2024 11:20 AM EDT Office Visit Family Practice [address] [place] [phone] Alan Dukes DO 293 [facility] [place], [place] [address] 09/16/2024 10:00 AM EDT Nurse Only Family Practice [address] [place] [phone] College, Nurse Fam Prac [address], [place] [address] 10/17/2024 10:00 AM EDT Nurse Only Family Practice 65 [facility] 293 [place] [phone] College, Nurse Fam Prac [address] [place] [address] 11/07/2024 10:00 AM EDT Office Visit Family Practice 65 [facility] 293 [place] [place] [phone] Alan Dukes, DO 293 [facility] [place] [address] 11/13/2024 10:15 AM EDT Office Visit Orthopaedics [facility] [address] [place] [address] Braulio Holly, DO [address] [place] [phone] Scheduled Procedures Name Priority Associated Diagnoses Date/Ti me COLONOSCOPY FLEXIBLE PROXIMAL DIAGNOSTIC Recall History of colon polyps Health Maintenance Due Date Last Done Comments Adult Wellness Visit 2007 Diabetic Foot Exam 09/19/2024 09/20/2023, 0 10/13/2022, 01/06/2022, Additional history exists CKD HGB USE SMARTSET 17065 11/08/202411/08, 11/09/2023, 08/21/2023, Additional history exists Diabetic Eye Exam 12/06/2024 12/07/2023, , 12/07/2023, Additional history exists HbA1c 01/14/2025 07/17/2024, 02/21, 11/09/2023, Additional history exists GFR 02/14/2025 08/14/2024, 02/21, 08/21/2023, Additional history exists Albumin/Creatinine Ratio 02/20/202502/20/ 024, 04/06/2023, 02/16/2023, Additional history exists CKD PHOS USE SMARTSET 91513 03/21/202502/21, 02/16/2023, 02/09/2022, Additional history exists Depression Screening 07/17/2025 07/17/2024 DXA Scan 02/20/2031 02/21/2024, 06/2023, 07/14/2014, Additional [...] pressure) < 140/90- Primary Unspecified essential hypertension HTN, goal below 140/90 Unspecified essential hypertension documented in this encounter Care Teams Sales Representative [employer] Relationship Specialty Start Date End Date Alan Dukes DO [address] [facility] [place] [address] PCP - General Internal Medicine 11/02/23 documented as of this encounter
--- OUTSIDE RECORDS SUMMARY | 2024-08-24 06:05 | External Medical Summary ---
Author Name Unknown Address Unknown Organization [id number]:LABORATORY [facility] [place] - [address] [place] [address] Laboratory Report Ordering Provider Test Date Status JONO KATE 08/22/2024 07:59:47 Final Observation Date Value Abnormality Reference (Units ) Status TSH 08/22/2024 07:59:47 3.51 0.27-4.20 (uIU/mL) Final Performing Location LABORATORY [facility] - [address] [place] [address]
--- OUTSIDE RECORDS SUMMARY | 2024-08-24 06:05 | External Medical Summary ---
Author Name Unknown Address Unknown Organization [id number][place] [place] [address] [place] [address] Laboratory Report Ordering Provider Test Date Status JONO KATE 08/22/2024 07:59:47 Final Observation Date Value Abnormality Reference (Units ) Status Cortisol 08/22/2024 07:59:47 20.0 Above high normal 2. 5-19.5 (ug/dL) Final AM Reference Range: 4.8 - 19 .5 ug/dL
PM Reference Range: 2.5 - 11.9 ug/dL Performing Location [facility] [place] [address] [place] [address]
--- OUTSIDE RECORDS SUMMARY | 2024-08-24 06:05 | External Medical Summary ---
Author Name Unknown Address Unknown Organization [id number]:LABORATORY [facility] - [address] [place] [address] Laboratory Report Ordering Provider Test Date Status JONO KATE 08/22/2024 07:59:47 Final Observation Date Value Abnormality Reference (Units ) Status Sodium 08/22/2024 07:59:47 126 Below low normal 135 -146 (mmol/L) Final Performing Location LABORATORY [facility] [address] - [address] [place] [address]
--- OUTSIDE RECORDS SUMMARY | 2024-08-24 06:05 | External Medical Summary | Summary of Care ---
Author Name Unknown Organization [facility] Address [address] [place] [address] Phone [phone] Care Team Providers Care Repairer Screen Crusher Name Role Phone Alan Dukes DO Primary Care Provider [phone] Reason for Referral * Evaluate & Treat - Unlimited Visits (Within 3 days (urgent)) - Authorized Specialty Diagnoses / Procedures Referred By Contac t Referred To Contact Pharmacist / Pharmacy Diagnoses Hypertension goal BP (blood pressure) < 140/90 Alan Dukes DO [address] [place] [address] Phone: tel: fax: Referral ID Status Reason Start Date Expiration Date Visits Requested Visits Authorized [id number] Authorized Specialty Services Required 08/20/2024 02/16/2025 99 99 Question Answer Referral Priority Within 3 days (urgent) Where should this appointment be scheduled? [facility] Referring Provider Role: Primary Care Reason for Referral: HTN Goal BP: < 140/90 Comments Pharmacist Medication Therapy Management: Minimum frequency patient should be seen in person for medication management: as appropriate per clinical condition and patient status By my signature, I understand that my patient Anabell Cook will have her medication therapy managed by the [facility] ([facility]) per established policies, procedures, and protocols. I also certify that this referral may serve as an initiation of service for the management of drug therapy in the above noted patient. [facility] providers will be responsible for scheduling patient visits, obtaining appropriate laboratory studies, and adjusting medication management therapy per patient's need, in addition to those roles spelled out in the clinic policy, procedures, and drug management protocols. I understand that the service provided by the [facility] is voluntary and have informed patient that they can refuse the service at their discretion. I am aware that the [facility] Clinic will provide me with a copy of the patient encounter via my App[employer] InDatabanq. I authorize the [facility] to carry out these activities on my behalf. I consider this program to be a necessary part of the patient's medical care. 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 (HCC); DYSLIPIDEMIA, GOAL LDL BELOW 100; Gastroesophageal reflux disease without esophagitis; Pernicious anemia; Restless leg syndrome; Type 2 diabetes mellitus with diabetic polyneuropathy, without long-term current use of insulin ([facility]) Allergies Active Allergy Reactions Criticality Noted Date Comments Bactroban Rash 03/02/2010 Lisinopril Cough 12/24/2011 Losartan Other (Please comment) 07/20/2022 hyperkalemia Propoxyphene Unknown 12/27/1999 Darvon documented as of this encounter (statuses as of 08/20/2024) Medications LANCET DEVICE MISCIndications :DM type 2, [...] 1 Capsule by mouth at bedtime. 10/07/19 Active Centrum Silver 50+Women Oral Tablet Take [...] 3 4 10:43 AM EST 11/01/19 24 2024 Active Unifine Pentips 31G X 8 MM (Insulin Pen Needle) Use to inject Xultophy daily 100 Each 3 5 1:36 PM EST 12/26/19 24 2024 Active Simvastatin 20 MG Oral Tablet (Zocor)Indicati ons:Dyslipidemi a, goal LDL below 100 TAKE ONE TABLET BY MOUTH AT BEDTIME 100 Tablet 1 5 8:22 AM EDT 02/28/20 24 2024 Active NovoLOG FlexPen 100 UNIT/ML Subcutaneous Solution Pen-injector (insulin aspart)Indicati ons: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 Then increase dose as directed by [facility] pharmacist (max 15 units daily) 15 mL 3 5 2:35 PM EDT 05/20/20 Active Additional Information Patient taking differently: 12-14 UnitsSubcutaneous BEFORE DINNER, Then increase dose as directed by [facility] pharmacist (max 15 units daily), [...] 2 5 2:35 PM EDT 07/26/19 25 2025 Active amLODIPine Besylate 10 MG Oral [...] mouth in the morning. 08/21/19 25 Active Metamucil 28.3 % Oral Powder (Psyllium) Dissolve in water and drink daily 2024 Disconti nued(Med ication/ Dose Changed) Spironolactone 25 MG Oral Tablet (Aldactone)Kalina cations:Hyperte nsion goal BP (blood pressure) < 140/90 Take 0.5 Tablets by mouth in the morning. 30 Tablet 5 08/17/19 25 2024 Disconti nued(Ref ill) Hospital, Clinic, or Other Facility Administered Medication Ordered Dose Route Frequency Start Date End Date Status Vitamin B-12 (Cyanocobalamin) inj 1,000 mcgIndications:Vitamin B 12 deficiency 1000 mcg IM [id number] 06/19/2024 05/21/2025 Active documented as of this encounter (statuses as of 08/20/2024) Active Problems Problem Noted Date Diagnosed Date [...] as of this encounter (statuses as of 08/20/2024) Resolved Problems Problem Noted Date Diagnosed Date [...] as of this encounter (statuses as of 08/20/2024) Immunizations Name Administration Dates Next Due COVID-19 mRNA, LNP-s, No Pre serve, 2-Dose Series ([facility]) 04/27/2021,08/08/2020,07/18/2020 COVID-19, LNP-s, No Preserve , Tian-sucrose, Ages 12+ (Pfizer) 10/12/2021 H1N1 2009 Influenza, IM 06/08/2009 Hepatitis B, 20+ yrs 02/16/2023,06/22/19 23,03/10/2022(Defer red: Contraindication),03/10/2022 Pneumococcal Conjugate Vacc, 13 Valent (Prevnar) 12/08/2014 Pneumococcal Conjugate Vacci ne, 20-valent ([id number]) 03/21/2024 Pneumococcal Polysaccharide PPV23 (Pneumovax) 04/24/2006,03/02/1998 RSV Vac., Recomb, Adjuvant, PF,0.5 Ml (Arexvy) 03/21/2024 Season Influenza, Quad, PF, Adjuvanted, 65+ Yrs, IM (FLUAD) 02/05/2020 Seasonal Influenza Vac., MDV , IM, 0.5 mL (Fluzone) 02/07/2017,01/11/2016,02/02/2015,02/17,02/11/2013,02/27/2012,02/07/2011 ,02/24/2010,02/09/2009,03/25/2008,02/20,03/07/2006,03/21/2005, 3,04/09/2002,03/19/2001 Seasonal Influenza, High Dos e, Trivalent, PF, IM (Fluzone HD) 02/21/2024 Seasonal Influenza, PF, 6 M & above, IM , (FluLaval or Fluzone) 01/24/2018 Seasonal Influenza, Quadriva lent Hd (Fluzone Hd) 02/16/2023,02/09/2022,02/24/2021 Seasonal Influenza, Trivalen t, Adjuvanted, 65+ YRS, PF, (Fluad) 01/15/2019 TD - Tetanus/Diptheria (ADULT) 09/17/2007,1997 TDAP (age 10 and older)(Boostrix) 06/22/2023, Varicella Zoster Vaccine (Adult) 08/22/2011 Zoster Vaccine Recombinant (Shingrix) ,03/04/2020,11/15/2019,11/14 documented as of this encounter Social History Tobacco Use Types Packs/Day Years Used Date Smoking Tobacco: Never Passive Smoke Exposure: Never Smokeless Tobacco: Never Tobacco Cessation:Counseling Given: Yes Alcohol Use Standard Drinks/Week Comments No 0 [...] 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 [employer] Not on file Not on file Not on file documented as of this encounter Last Filed Vital Signs Vital Sign Reading Time Taken Comments Blood Pressure 136/64 08/20/2024 9:17 AM EDT Pulse 65 08/20/2024 9:17 AM EDT Temperature 35.6 °C (96.1 °F) 08/20/2024 9:17 AM ED T Respiratory Rate 16 08/20/2024 9:17 AM EDT Oxygen Saturation 98% 08/20/2024 9:17 AM EDT Inhaled Oxygen Concentration - - Weight 76.5 kg (168 lb 9.6 oz) 08/20/2024 9:17 A M EDT Height 157.5 cm (5' 2") 08/20/2024 9:17 AM EDT Body Mass Index 30.84 08/20/2024 9:17 AM EDT documented in this encounter Progress Notes * Aliza Alvarenga LPN - 08/20/2024 10:31 AM EDT EKG per order. Zio per order.---[id number] * Alan Dukes DO - 08/20/2024 10:17 AM EDT SUBJECTIVE: Anabell Cook is a 84 year old female. Chief Complaint Patient presents with Follow Up HPI: Patient is an 84 year old female with a history of DM type II, CKD stage III, Hyperlipidemia, GERD,B-12 Deficiency Anemia, Psoriasis, and Restless Leg that is seen for follow up. Blood pressure is not controlled at home. The patient has intermittent palpitations for the last 1-2 weeks. No syncope.No chest pain or shortness of breath are present. Frontal head pressure is unchanged. Patient Active Problem List Diagnosis GENERAL OSTEOARTHROSIS [...] with diabetic peripheral angiopathy without gangrene (HCC) Current Outpatient Medications Medication Sig Dispense Refill OSTEO BI-FLEX ADV TRIPLE ST PO TABS Take 1 Tab by mouth 2 times a day. ASPIRIN EC 81 MG PO TBEC 1 TABLET DAILY 99 Tab 99 Turmeric 500 MG Oral Capsule Take 1 Capsule by mouth at bedtime. Centrum Silver 50+Women Oral Tablet Take 1 Tablet by mouth in the morning. Simvastatin 20 MG Oral Tablet (Zocor) TAKE ONE TABLET BY MOUTH AT BEDTIME 100 Tablet 1 NovoLOG FlexPen 100 UNIT/ML Subcutaneous Solution Pen-injector (insulin aspart) Inject 9-11 Units under the skin daily before dinner. Then increase dose as directed by [facility] pharmacist (max 15 units daily) (Patient taking differently: Inject 12-14 Units under the skin daily before dinner. Then increase dose as directed by [facility] pharmacist (max 15 units daily)) 15 mL 3 Xultophy 100-3.6 UNIT-MG/ML Subcutaneous Solution Pen-injector (Insulin Degludec-Liraglutide) Inject 28 Units under the skin daily. (Patient taking differently: Inject 30 Units under the skin daily.)30 mL 1 ALPRAZolam 0.25 MG Oral Tablet (xaNAX) TAKE 1 TABLET BY MOUTH 3 TIMES A DAY NEEDED FOR ANXIETY 90 Tablet 0 Omeprazole 20 MG Oral Capsule Delayed Release (PriLOSEC) TAKE ONE CAPSULE BY MOUTH EVERY DAY ONE HOUR BEFORE THE FIRST MEAL OF THE DAY 100 Capsule 2 amLODIPine Besylate 10 MG Oral Tablet (Norvasc) Take 1 Tablet by mouth in the morning. 100 Tablet 3 Gabapentin 300 MG Oral Capsule (Neurontin) Take 1 Capsule by mouth at bedtime. Metoprolol Succinate ER 100 MG Oral Tablet Extended Release 24 Hour (toPROL XL) Take 1 Tablet by mouth in the morning. 100 Tablet 3 Spironolactone 25 MG Oral Tablet (Aldactone) Take 1 Tablet by mouth in the morning. LANCET DEVICE MISC use bid for 250.00 100 5 [employer] SYSTEM W/DEVICE KIT Use up to four times a day as directed 1 Kit 0 Amitriptyline HCl 10 MG Oral Tablet (Elavil) TAKE TWO TABLETS BY MOUTH AT BEDTIME (Patient not taking: Reported on 08/20/2024) 200 Tablet 3 [employer] Solutionsuch Ultra In Vitro Strip (Glucose Blood) USE TO TEST BLOOD SUGAR 3 TIMES DAILY 300 Strip 3 Unifine Pentips 31G X 8 MM (Insulin Pen Needle) Use to inject Xultophy daily 100 Each 3 Amjevita 40 MG/0.4ML Subcutaneous Solution Auto-injector (Adalimumab-atto) Inject 1 pen under the skin every 2 weeks (Patient not taking: Reported on 08/14/2024) 0.8 mL 5 Current Facility-Administered Medications Medication Dose Route Frequency Provider Last Rate Last Admin Vitamin B-12 (Cyanocobalamin) inj 1,000 mcg 1,000 mcg Intramuscular Q4 Weeks 1,000 mcg at 08/09/24 1500 The patient's medication list was reviewed and updated as needed. Past Medical History: Diagnosis Date Asymptomatic bilateral carotid artery stenosis 02/09/2022 Chest pain 1995 [place] [facility] [place] Cystitis 07/05/2022 >100,000 pansensitive Klebsiella DM type 2, goal A1C below 8.0 03/19/2009 Per Diabetes Taxonomy. Esophagitis, unspecified HTN, goal below 140/80 Other psoriasis Psoriasis Other pulmonary embolism and infarction 1995 Paroxysmal atrial tachycardia (HCC) 1985 Rash and nonspecific skin eruption tinea corporis- rx with Clotrim Past Surgical History: Procedure Laterality Date CATARACT SURGERY,COMPLEX Left 12/2014 CATARACT SURGERY,COMPLEX Right 02/02/2015 COLONOSCOPY W/ BIOPSY (RECTUM) 05/06/08 polyps, adenomatous tissue COLONOSCOPY, DIAGNOSTIC (RECTUM) 05/07/2013 COLONOSCOPY FLEXIBLE PROXIMAL DIAGNOSTIC performed by Meg Isbell DO at ENDOSCOPY [facility] COLONOSCOPY, DIAGNOSTIC (RECTUM) 09/20/2017 diverticulosis, repeat 5 yrs/COLONOSCOPY FLEXIBLE PROXIMAL DIAGNOSTIC performed by Tez Barragan MD at ENDOSCOPY [facility] EGD, FLEXIBLE, W/BIOPSY 05/20/08 chronic gastritis, inflammatory polyps LIGATE/DIVIDE & STRIP GSV/LSV 1985 Varicose Vein Stripping and Ligation MAMMOGRAM BREAST NEEDLE BIOPSY CORE LEFT Left 01/13/2015 Final pathology demonstrates benign fatty atrophy right breast tissue with 3 mm fibroadenoma containing REMOVE GALLBLADDER 1969 [facility] Review of patient's allergies indicates: Allergen Reactions Bactroban Rash Lisinopril Cough Losartan Other (Please comment) hyperkalemia Propoxyphene Unknown Darvon Review of Systems Constitutional: Positive for appetite change and fatigue. Negative for chills, fever and unexpectedweight change. HENT: Positive for postnasal drip. Negative for sore throat and trouble swallowing. Respiratory: Negative for cough, shortness of breath and wheezing. Cardiovascular: Positive for palpitations. Negative for chest pain and leg swelling. Gastrointestinal: Negative for abdominal pain, blood in stool, constipation, diarrhea, nausea and vomiting. Genitourinary: Negative for dysuria and hematuria. Musculoskeletal: Negative for back pain and gait problem. Neurological: Positive for dizziness and headaches. Negative for syncope. Psychiatric/Behavioral: Positive for sleep disturbance. Negative for decreased concentration and dysphoric mood. The patient is nervous/anxious. OBJECTIVE: BP 136/64 (BP Site: Left Arm, BP Position: Sitting, BP Cuff Size: Large) | Pulse 65 | Temp 96.1 °F(35.6 °C) (Tympanic) | Resp 16 | Ht 5' 2" (1.575 m) | Wt 168 lb 9.6 oz (76.5 kg) | SpO2 98% | BMI 30.84 kg/m² | BSA 1.83 m² Physical Exam Vitals and nursing note reviewed. Constitutional: General: She is not in acute distress. Appearance: Normal appearance. She is not toxic-appearing. HENT: Head: Normocephalic and atraumatic. Cardiovascular: Rate and Rhythm: Normal rate and regular rhythm. Heart sounds: Normal heart sounds. No murmur heard. No gallop. Pulmonary: Effort: Pulmonary effort is normal. Breath sounds: Normal breath sounds. No wheezing, rhonchi or rales. Abdominal: General: Bowel sounds are normal. There is no distension. Palpations: Abdomen is soft. Tenderness: There is no abdominal tenderness. Musculoskeletal: Right lower leg: No edema. Left lower leg: No edema. Neurological: Mental Status: She is alert and oriented to person, place, and time. Mental status is at baseline. Motor: No weakness. Gait: Gait normal. ECG: Sinus bradycardia, otherwise normal PLAN AND ASSESSMENT: Hypertension goal BP (blood pressure) < 140/90 (Primary) - PHARMACIST MEDS THERAPY MGMT REFERRAL OP - TSH WITH FREE T4 IF INDICATED; Future; Expected date: 08/20/2024 - CBC WITH WBC DIFFERENTIAL; Future; Expected date: 08/20/2024 Increase Spironolactone to 25 mg daily Continue Amlodipine, and Metoprolol ER Palpitations - EXTERNAL EKG 8 TO 15 DAYS; Future; Expected date: 08/21/2024 - EKG; Future; Expected date: 08/20/2024 - TSH WITH FREE T4 IF INDICATED; Future; Expected date: 08/20/2024 - CBC WITH WBC DIFFERENTIAL; Future; Expected date: 08/20/2024 Continue Metoprolol ER Type 2 diabetes 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 hypertension (HCC) Continue Xultophy, and Novolog DYSLIPIDEMIA, GOAL LDL BELOW 100 Continue Simvastatin Gastroesophageal reflux disease without esophagitis Continue Omeprazole Pernicious anemia - CBC WITH WBC DIFFERENTIAL; Future; Expected date: 08/20/2024 Restless leg syndrome Continue Gabapentin Type 2 diabetes mellitus with diabetic polyneuropathy, without long-term current use of insulin (HCC) Continue Gabapentin Follow Up: Return in about 1 week (around 08/27/2024), or if symptoms worsen or fail to improve. Alan Dukes DO 10:18 AM 08/20/2024 documented in this encounter Procedure Notes * Fuentes Camara DO - 08/20/2024 10:28 AM EDTAssociated Order(s): EKG REASON FOR STUDY: palpitations;palpitations CONCLUSIONS: Sinus bradycardia Otherwise normal ECG When compared with ECG of 23-Nov-2017 14:26, Vent. rate has decreased by 33 bpm Ventricular Rate: 58 Atrial Rate: 58 VA Interval: 150 QRS Duration: 86 QT/QTc: 416/408 ms P-R-T Franklin: 37 : 4 : 30 degrees documented in this encounter Nursing Notes * iNmo Garcia LPN - 08/20/2024 9:20 AM EDT Patient here for follow up visit. Light headed and dizziness last evening. [place] rapid heart rate last night - pulse 80. documented in this encounter Plan of Treatment Upcoming Encounters Date Type Department Care Team (Late st Contact Info) Description 08/27/2024 11:20 AM EDT Office Visit Family Practice [address] [place] [phone] Alan Dukes DO [address] [place] [address], [place] [address] 09/16/2024 10:00 AM EDT Nurse Only Family Practice [address] [place] [phone] [place], Nurse Fam Prac [address] [place] [address] 10/17/2024 10:00 AM EDT Nurse Only Family Practice [address] [place] [phone] [place], Nurse Fam Prac [address] [place] [address] 11/07/2024 10:00 AM EDT Office Visit Family Practice 65 [facility] [place] [address] [place] [phone] Alan Dukes, DO [address] [place] [address] 11/13/2024 10:15 AM EDT Office Visit Orthopaedics [facility] [address] [place] [address] Braulio Hloly, DO [address] [place] [address] Pending Results Name Type Priority Associated Diagnoses Date /Time TSH WITH FREE T4 IF INDICATED Lab Routine Hypertension goal BP (blood pressure) < 140/90 Palpitations 08/20/2024 11:00 AM EDT CBC WITH WBC DIFFERENTIAL Lab Routine Hypertension goal BP (blood pressure) < 140/90 Palpitations Pernicious anemia 08/20/2024 11:00 AM EDT BASIC METABOLIC PANEL Lab Routine Type 2 diabetes 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 hypertension (HCC) 08/20/2024 11:00 AM EDT CBC Lab Routine Hypertension goal BP (blood pressure) < 140/90 Palpitations Pernicious anemia 08/20/2024 11:00 AM EDT DIFFERENTIAL, AUTOMATED Lab Routine Hypertension goal BP (blood pressure) < 140/90 Palpitations Pernicious anemia 08/20/2024 11:00 AM EDT Scheduled Orders Name Type Priority Associated Diagnoses Orde r Schedule EXTERNAL EKG 8 TO 15 DAYS Holter Routine Palpitations Expected: 08/21/2024 (Approximate), Expires: 08/20/2025 TSH WITH FREE T4 IF INDICATED Lab Routine Hypertension goal BP (blood pressure) < 140/90 Palpitations Expected: 08/20/2024 (Approximate), Expires: 08/20/2025 CBC WITH WBC DIFFERENTIAL Lab Routine Hypertension goal BP (blood pressure) < 140/90 Palpitations Pernicious anemia Expected: 08/20/2024 (Approximate), Expires: 08/20/2025 Scheduled Procedures Name Priority Associated Diagnoses Date/Ti me COLONOSCOPY FLEXIBLE PROXIMAL DIAGNOSTIC Recall History of colon polyps Scheduled Referrals Name Type Priority Associated Diagnoses Orde r Schedule PHARMACIST MEDS THERAPY MGMT REFERRAL OP Referral Within 3 days (urgent) Hypertension goal BP (blood pressure) < 140/90 Ordered: 08/20/2024 Health Maintenance Due Date Last Done Comments Adult Wellness Visit 2007 Diabetic Foot Exam 09/19/2024 09/20/2023, 0 10/13/2022, 01/06/2022, Additional history exists CKD HGB USE SMARTSET 71854 11/08/202411/08, 11/09/2023, 08/21/2023, Additional history exists Diabetic Eye Exam 12/06/2024 12/07/2023, , 12/07/2023, Additional history exists HbA1c 01/14/2025 07/17/2024, 02/21, 11/09/2023, Additional history exists GFR 02/14/2025 08/14/2024, 02/21, 08/21/2023, Additional history exists Albumin/Creatinine Ratio 02/20/2025 024, 04/06/2023, 02/16/2023, Additional history exists CKD PHOS USE SMARTSET 49218 03/21/202502/21, 02/16/2023, 02/09/2022, Additional history exists Depression [...] Not on filedocumented as of this encounter Procedures Procedure Name Priority Date/Time Associated Diagnosis Comments VA ECG ROUTINE ECG W/LEAST 12 LDS I&R ONLY Routine 08/20/2024 10:28 AM EDT Palpitations documented in this encounter Results * EKG (08/20/2024 10:28 AM EDT) 08/20/2024 10:2 8 AM EDT Narrative Procedure Note Fuentes Camara DO - 08/20/2024 10:28 AM EDT REASON FOR STUDY: palpitations;palpitations CONCLUSIONS: Sinus bradycardia Otherwise normal ECG When compared with ECG of 23-Nov-2017 14:26, Vent. rate has decreased by 33 bpm Ventricular Rate: 58 Atrial Rate: 58 VA Interval: 150 QRS Duration: 86 QT/QTc: 416/408 ms P-R-T Franklin: 37 : 4 : 30 degrees Alan Dukes DO EKG Final Result [facility] documented in this encounter Visit Diagnoses Diagnosis Hypertension goal BP (blood pressure) < 140/90- Primary Unspecified essential hypertension Palpitations Type 2 diabetes 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 hypertension (HCC) DYSLIPIDEMIA, GOAL LDL BELOW 100 Other and unspecified hyperlipidemia Gastroesophageal reflux disease without esophagitis Esophageal reflux Pernicious anemia Restless leg syndrome Restless legs syndrome (RLS) Type 2 diabetes mellitus with diabetic polyneuropathy, without long-term current use of insulin (HCC) documented in this encounter Care Teams Repairer Screen Crusher Relationship Specialty Start Date End Date Alan Dukes DO [address] [place] [address] PCP - General Internal Medicine 11/02/23 documented as of this encounter
--- OUTSIDE RECORDS SUMMARY | 2024-08-24 06:05 | External Medical Summary ---
Author Name Unknown Address Unknown Organization [id number]:[facility] [place] [address] [place] [address] Laboratory Report Ordering Provider Test Date Status JONO KATE 08/20/2024 11:00:57 Final Observation Date Value Abnormality Reference (Units ) Status SYNC LEUKOCYTES IN BLOOD BY AUTOMATED COUNT 08/20/2024 11:00:57 8.23 4.00-10.80 (K/uL) Final Segs 08/20/2024 11:00:57 69.3 40.0-75.0 (%) Final Lymphs % 08/20/2024 11:00:57 21.0 18.0-42.0 (%) Final Monos 08/20/2024 11:00:57 7.8 1.0-11.0 (%) Final Eosinophils 08/20/2024 11:00:57 1.0 0.0-6.0 (%) Final Basos 08/20/2024 11:00:57 0.5 0.0-2.0 (%) Final Immature Granulocyte, Percent 08/20/2024 11:00:57 0.4 0.0-2.0 (%) Final Absolute Segs 08/20/2024 11:00:57 5.71 1.80-7.70 (K/uL) Final Lymphs, absolute 08/20/2024 11:00:57 1.73 1.00-4.80 (K/ul) Final Monos, Abs 08/20/2024 11:00:57 0.64 0.00-1.10 (K/uL) Final Eos, Abs 08/20/2024 11:00:57 0.08 0.00-0.70 (K/uL) Final Basos, Abs 08/20/2024 11:00:57 0.04 0.00-0.20 (K/uL) Final Immature Granulocytes, Number 08/20/2024 11:00:57 0.03 0.00-0.20 (K/uL) Final Performing Location [facility] [place] [address] [place] [facility] [address]
--- OUTSIDE RECORDS SUMMARY | 2024-08-24 06:05 | External Medical Summary | Summary of Care ---
Author Name Unknown Organization [facility] Address [address] [place] [address] Phone [phone] Care Team Providers Care Carbon Cleaner Name Role Phone Alan Dukes DO Primary Care Provider [phone] Reason for Referral * Evaluate & Treat - Unlimited Visits (Within 3 days (urgent)) - Authorized Specialty Diagnoses / Procedures Referred By Contac t Referred To Contact Pharmacist / Pharmacy Diagnoses Hypertension goal BP (blood pressure) < 140/90 Alan Dukes DO [address] [place] [address] Phone: tel: fax: Referral ID Status Reason Start Date Expiration Date Visits Requested Visits Authorized [id number] Authorized Specialty Services Required 08/20/2024 02/16/2025 99 99 Question Answer Referral Priority Within 3 days (urgent) Where should this appointment be scheduled? [facility] Referring Provider Role: Primary Care Reason for Referral: HTN Goal BP: < 140/90 Comments Pharmacist Medication Therapy Management: Minimum frequency patient should be seen in person for medication management: as appropriate per clinical condition and patient status By my signature, I understand that my patient Anabell Cook will have her medication therapy managed by the [facility] Medication Therapy [facility] ([facility]) per established policies, procedures, and protocols. I also certify that this referral may serve as an initiation of service for the management of drug therapy in the above noted patient. [facility] providers will be responsible for [...] their discretion. I am aware that the [facility] Clinic will provide me with a copy of the patient encounter via my [employer]. I authorize the [facility] to carry out these activities on my behalf. I consider this program to be a necessary part of the patient's medical care. 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); DYSLIPIDEMIA, GOAL LDL BELOW 100; Gastroesophageal reflux disease without esophagitis; Pernicious anemia; Restless leg syndrome; Type 2 diabetes mellitus with diabetic polyneuropathy, without long-term current use of insulin ([facility]) Allergies Active Allergy Reactions Criticality Noted Date [...] DINNER, Then increase dose as directed by [facility] pharmacist (max 15 units daily), [...] mcgIndications:Vitamin B 12 deficiency 1000 mcg IM [id number] 06/19/2024 05/21/2025 Active documented as of this [...] mRNA, LNP-s, No Pre serve, 2-Dose Series ([employer]) 04/27/2021,08/08/2020,07/18/2020 COVID-19, LNP-s, No Preserve , Tian-sucrose, Ages 12+ (Pfizer) 10/12/2021 H1N1 2009 Influenza, IM 06/08/2009 Hepatitis B, 20+ yrs 02/16/2023,06/22/19 23,03/10/2022(Defer red: Contraindication),03/10/2022 Pneumococcal Conjugate Vacc, 13 Valent (Prevnar) 12/08/2014 Pneumococcal Conjugate Vacci ne, 20-valent ([id number]) 03/21/2024 Pneumococcal Polysaccharide PPV23 (Pneumovax) 04/24/2006,03/02/1998 RSV [...] 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 Zio per order.---[id number] * Alan Dukes DO - 08/20/2024 10:17 [...] dinner. Then increase dose as directed by [facility] pharmacist (max 15 units daily) (Patient taking differently: Inject 12-14 Units under the skin daily before dinner. Then increase dose as directed by [facility] pharmacist (max 15 units daily)) [...] MISC use bid for 250.00 100 5 MemBlaze SYSTEM W/DEVICE KIT Use up to four times a day as directed 1 Kit 0 Amitriptyline HCl 10 MG Oral Tablet (Elavil) TAKE TWO TABLETS BY MOUTH AT BEDTIME (Patient not taking: Reported on 08/20/2024) 200 Tablet 3 Comic Wonderuch Ultra In Vitro Strip (Glucose Blood) USE [...] stenosis 02/09/2022 Chest pain 1995 [facility] [place] [facility] 1995 Cystitis 07/05/2022 >100,000 pansensitive Klebsiella DM [...] by Meg Isbell DO at ENDOSCOPY [facility] COLONOSCOPY, DIAGNOSTIC (RECTUM) 09/20/2017 diverticulosis, repeat 5 yrs/COLONOSCOPY FLEXIBLE PROXIMAL DIAGNOSTIC performed by Tez Barragan MD at ENDOSCOPY [facility] EGD, FLEXIBLE, W/BIOPSY 05/20/08 chronic gastritis, inflammatory polyps LIGATE/DIVIDE & STRIP GSV/LSV 1985 Varicose Vein Stripping and Ligation MAMMOGRAM BREAST NEEDLE BIOPSY CORE LEFT Left 01/13/2015 Final pathology demonstrates benign fatty atrophy right breast tissue with 3 mm fibroadenoma containing REMOVE GALLBLADDER [facility] Review of patient's allergies indicates: Allergen [...] bpm Ventricular Rate: 58 Atrial Rate: 58 MT Interval: 150 QRS Duration: 86 QT/QTc: 416/408 ms P-R-T [place]: 37 : 4 : 30 degrees documented in this encounter Nursing Notes * Nimo Garcia LPN - 08/20/2024 9:20 AM EDT Patient here for follow up visit. Light headed and dizziness last evening. [place] rapid heart rate last night - pulse 80. documented in this encounter Plan of Treatment Upcoming Encounters Date Type Department Care Team (Late st Contact Info) Description 08/27/2024 11:20 AM EDT Office Visit Family Practice [address] [place] [phone] Alan Dukes DO [address] [place] [address], [place] [address] 09/16/2024 10:00 AM EDT Nurse Only Family Practice [address] [place] [phone] [place], Nurse Fam Prac [address] [place] [address] 10/17/2024 10:00 AM EDT Nurse Only Family Practice [address] [place] [phone] [place], Nurse Fam Prac [address] [place] [address] 11/07/2024 10:00 AM EDT Office Visit Family Practice [address] [facility] [place] [address] [facility] [phone] Alan Dukes, DO [address] [place] [address] 11/13/2024 10:15 AM EDT Office Visit Orthopaedics [facility] [address] [place] [address] Braulio Holly, DO [address] [place] [address] Pending Results Name Type Priority [...] Additional history exists CKD HGB USE SMARTSET 00332 11/08/202411/08, 11/09/2023, 08/21/2023, Additional history exists Diabetic Eye Exam 12/06/2024 12/07/2023, , 12/07/2023, Additional history exists HbA1c 01/14/2025 07/17/2024, 02/21, 11/09/2023, Additional history exists GFR 02/14/2025 08/14/2024, 02/21, 08/21/2023, Additional history exists Albumin/Creatinine Ratio 02/20/2025 024, 04/06/2023, 02/16/2023, Additional history exists CKD PHOS USE SMARTSET 18369 03/21/202502/21, 02/16/2023, 02/09/2022, Additional history exists Depression [...] Procedure Name Priority Date/Time Associated Diagnosis Comments MT ECG ROUTINE ECG W/LEAST 12 LDS I&R [...] bpm Ventricular Rate: 58 Atrial Rate: 58 MT Interval: 150 QRS Duration: 86 QT/QTc: 416/408 ms P-R-T [place]: 37 : 4 : 30 degrees Alan Dukes DO EKG Final Result [facility] documented in this encounter Visit Diagnoses [...] (HCC) documented in this encounter Care Teams Carbon Cleaner Relationship Specialty Start Date End Date Alan Dukes DO [address] [place] [address] PCP - General Internal Medicine 11/02/23 documented as of this encounter
--- OUTSIDE RECORDS SUMMARY | 2024-08-24 06:05 | External Medical Summary ---
Author Name Unknown Address Unknown Organization [id number]:[facility] [place] [address] [place] [address] Laboratory Report Ordering Provider Test Date Status JONO KATE 08/20/2024 11:00:57 Final Observation Date Value Abnormality Reference (Units ) Status WBC, Total 08/20/2024 11:00:57 8.23 4.00-10.80 (K/uL) Final RBC 08/20/2024 11:00:57 4.58 3.85-5.15 (M/uL) Final Hemoglobin 08/20/2024 11:00:57 14.3 12.0-15.3 (g/dL) Final HCT 08/20/2024 11:00:57 43.0 36.0-45.2 (%) Final MCV 08/20/2024 11:00:57 93.9 81.5-97.5 (fL) Final MCH 08/20/2024 11:00:57 31.2 27.0-34.0 (pg) Final MCHC 08/20/2024 11:00:57 33.3 32.0-36.0 (g/dL) Final RDW 08/20/2024 11:00:57 12.7 11.5-15.5 (%) Final Platelets 08/20/2024 11:00:57 181 140-400 (K/uL) Final MPV 08/20/2024 11:00:57 12.4 6.6-11.1 (fL) Final Nucleated erythrocytes/100 leukocytes [Ratio] in Blood by Automated count 08/20/2024 11:00:57 0 <=0 (/100 WBCs) Final Performing Location [facility] [place] [address] [place] [address]
--- OUTSIDE RECORDS SUMMARY | 2024-08-24 06:05 | External Medical Summary ---
Author Name Unknown Address Unknown Organization K01:[facility] - [address] [place] [address] Laboratory Report Ordering Provider Test Date Status JONO KATE 08/22/2024 07:59:47 Final Observation Date Value Abnormality Reference (Units ) Status Osmolality 08/22/2024 07:59:47 274 Below low normal 27 8-305 (mOsm/kg) Final Performing Location [facility]ORY [facility] - [address] [place] [address]
--- OUTSIDE RECORDS SUMMARY | 2024-08-24 06:05 | External Medical Summary ---
Author Name Unknown Address Unknown Organization K01:[facility] [place] - [facility] [address] [facility] [address] Laboratory Report Ordering Provider Test Date Status JONO KATE 08/20/2024 11:00:57 Final Observation Date Value Abnormality Reference (Units ) Status BUN 08/20/2024 11:00:57 21 Above high normal 6-20 (mg/dL) Final Creatinine 08/20/2024 11:00:57 0.9 0.5-1.0 (mg/dL) Final Glomerular filtration rate/1.73 sq M.predicted [Volume Rate/Area] in Serum, Plasma or Blood by Creatinine-based formula (CKD-EPI) 08/20/2024 11:00:57 62 >=60 (mL/min) Final eGFR is calculated based on the CKD-EPI 2020 equation. Sodium 08/20/2024 11:00:57 125 Below low normal 135 -146 (mmol/L) Final Potassium 08/20/2024 11:00:57 5.0 3.5-5.1 (m mol/L) Final Cl 08/20/2024 11:00:57 91 Below low normal 98- 107 (mmol/L) Final CO2 08/20/2024 11:00:57 25 22-32 (mmo l/L) Final Anion gap 08/20/2024 11:00:57 9 7-15 (mmol /L) Final Glucose 08/20/2024 11:00:57 159 Above high normal 70 -120 (mg/dL) Final Calcium 08/20/2024 11:00:57 10.0 8.4-10.2 ( mg/dL) Final Performing Location LABOR[facility]ORY [facility] - [address] [place] [address]
--- OUTSIDE RECORDS SUMMARY | 2024-08-24 06:05 | External Medical Summary ---
Author Name Unknown Address Unknown Organization K01:[facility]ORY [facility] [place] - [address] [place] [address] Laboratory Report Ordering Provider Test Date Status JONO KATE 08/20/2024 11:00:57 Final Observation Date Value Abnormality Reference (Units ) Status TSH 08/20/2024 11:00:57 1.60 0.27-4.20 (uIU/mL) Final Performing Location [facility] [place] - [address] [place] [address]
--- OUTSIDE RECORDS SUMMARY | 2024-08-24 06:05 | External Medical Summary | Summary of Care ---
Author Name Unknown Organization [facility] Address [address] [facility] [place] [address] Phone [phone] Care Team Providers Care Bottle Selector Name Role Phone Alan Dukes DO Primary Care Provider [phone] Reason for Visit * Reason Comments Outpatient Testing Encounter Details Date Type Department Care Team (Late st Contact Info) Description 08/22/2024 8:20 AM EDT Laboratory Laboratory, [facility] [address] [place] [phone] [facility] [address] [address] Low serum sodium Allergies Active Allergy Reactions Criticality Noted Date [...] DINNER, Then [facility] dose [facility] (max 15 units daily), Reported [...] mcgIndications:Vitamin B 12 deficiency 1000 mcg IM [id number] 06/19/2024 05/21/2025 Active documented as of this [...] mRNA, LNP-s, No Pre serve, 2-Dose Series ([employer]) 04/27/2021,08/08/2020,07/18/2020 COVID-19, LNP-s, No Preserve , Tian-sucrose, Ages 12+ (Pfizer) 10/12/2021 H1N1 2009 Influenza, IM 06/08/2009 Hepatitis B, 20+ yrs 02/16/2023,06/22/19 23,03/10/2022(Defer red: Contraindication),03/10/2022 Pneumococcal Conjugate Vacc, 13 Valent (Prevnar) 12/08/2014 Pneumococcal Conjugate Vacci ne, 20-valent ([id number]) 03/21/2024 Pneumococcal Polysaccharide PPV23 (Pneumovax) 04/24/2006 RSV [...] 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 Not on file Not on file documented as of this encounter Plan of Treatment Upcoming Encounters Date Type Department Care Team (Late st Contact Info) Description 08/23/2024 11:00 AM EDT Telemedicine Family Practice [address] [place] [phone] College, Pharmacist [address] [place] [address] 08/27/2024 11:20 AM EDT Office Visit Family Practice [address] [place] [phone] Alan Dukes, [address] [facility] [place] [address] 09/16/2024 10:00 AM EDT Nurse Only Family Practice [address] [place] [phone] College, Nurse Fam Prac [address] [place] [address] 10/17/2024 10:00 AM EDT Nurse Only Family Practice [address] [place] [phone] College, Nurse Fam Prac [address] [place] [address] 11/07/2024 10:00 AM EDT Office Visit Family Practice [address] [place] [phone] Alan Dukes, DO [address] [facility], [place] [address] 11/13/2024 10:15 AM EDT Office Visit Orthopaedics [facility] [address] [place] [phone] Braulio Holly, DO [address] [place] [phone] Pending Results Name Type Priority Associated Diagnoses Date /Time TSH Lab Routine Low serum sodium 08/22/2024 7:59 AM EDT SODIUM Lab Routine Low serum sodium 08/22/2024 7:59 AM EDT CORTISOL Lab Routine Low serum sodium 08/22/2024 7:59 AM EDT OSMOLALITY, SERUM Lab Routine Low serum sodium 08/22/2024 7:59 AM EDT Scheduled Procedures Name Priority Associated Diagnoses Date/Ti [...] Additional history exists CKD PHOS USE SMARTSET 42120 03/21/202502/21, 02/16/2023, 02/09/2022, Additional history exists Depression Screening 07/17/2025 07/17/2024 CKD HGB USE SMARTSET 66850 08/20/202508/20, 08/20/2024, 11/09/2023, Additional history exists DXA [...] this encounter Visit Diagnoses Diagnosis Low serum sodium documented in this encounter Care Teams Bottle Selector Relationship Specialty Start Date End Date Alan Dukes DO [address] [place] [address] PCP - General Internal Medicine 11/02/23 documented as of this encounter
--- OUTSIDE RECORDS SUMMARY | 2024-08-24 06:05 | External Medical Summary | Summary of Care ---
Author Name Unknown Organization [facility] Address [address] [place] [address] Phone [phone] Care Team Providers Care Uphol[employer] Name Role Phone Alan Dukes DO Primary Care Provider [phone] Reason for Referral * Evaluate & Treat - Unlimited Visits (Within 3 days (urgent)) - Authorized Specialty Diagnoses / Procedures Referred By Contac t Referred To Contact Pharmacist / Pharmacy Diagnoses Hypertension goal BP (blood pressure) < 140/90 Alan Dukes DO [address] [place] [address] Phone: tel: fax: Referral ID Status Reason Start Date Expiration Date Visits Requested Visits Authorized [id number] Authorized Specialty Services Required 08/20/2024 02/16/2025 99 99 Question Answer Referral Priority Within 3 days (urgent) Where should this appointment be scheduled? [facility] Referring Provider Role: Primary Care Reason for Referral: HTN Goal BP: < 140/90 Comments Pharmacist Medication Therapy Management: Minimum frequency patient should be seen in person for medication management: as appropriate per clinical condition and patient status By my signature, I understand that my patient Anabell Cook will have her medication therapy managed by the [facility] Medication Therapy [facility] ([facility]) per established policies, procedures, and protocols. I also certify that this referral may serve as an initiation of service for the management of drug therapy in the above noted patient. [facility] providers will be responsible for scheduling patient [...] their discretion. I am aware that the [facility] Clinic will provide me with a copy of the patient encounter via my [employer]. I authorize the [facility] to carry out these activities on my behalf. I consider this program to be a necessary part of the patient's medical care. 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); DYSLIPIDEMIA, GOAL LDL BELOW 100; Gastroesophageal reflux disease without esophagitis; Pernicious anemia; Restless leg syndrome; Type 2 diabetes mellitus with diabetic polyneuropathy, without long-term current use of insulin ([facility]) Allergies Active Allergy Reactions Criticality Noted Date [...] DINNER, Then increase dose as directed by [facility] pharmacist (max 15 units daily), Reported [...] mcgIndications:Vitamin B 12 deficiency 1000 mcg IM [id number] 06/19/2024 05/21/2025 Active documented as of this [...] mRNA, LNP-s, No Pre serve, 2-Dose Series (Connect2me) 04/27/2021,08/08/2020,07/18/2020 COVID-19, LNP-s, No Preserve , Tian-sucrose, Ages 12+ (Pfizer) 10/12/2021 H1N1 2009 Influenza, IM 06/08/2009 Hepatitis B, 20+ yrs 02/16/2023,06/22/19 23,03/10/2022(Defer red: Contraindication),03/10/2022 Pneumococcal Conjugate Vacc, 13 Valent (Prevnar) 12/08/2014 Pneumococcal Conjugate Vacci ne, 20-valent ([id number]) 03/21/2024 Pneumococcal Polysaccharide PPV23 (Pneumovax) 04/24/2006,03/02/1998 RSV [...] 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 Dali per order.---[id number] * Alan Dukes DO - 08/20/2024 10:17 [...] dinner. Then increase dose as directed by [facility] pharmacist (max 15 units daily) (Patient taking differently: Inject 12-14 Units under the skin daily before dinner. Then increase dose as directed by [facility] pharmacist (max 15 units daily)) 15 mL [...] MISC use bid for 250.00 100 5 [employer] SYSTEM W/DEVICE KIT Use up to four times a day as directed 1 Kit 0 Amitriptyline HCl 10 MG Oral Tablet (Elavil) TAKE TWO TABLETS BY MOUTH AT BEDTIME (Patient not taking: Reported on 08/20/2024) 200 Tablet 3 [employer] Ultra In Vitro Strip (Glucose Blood) USE [...] stenosis 02/09/2022 Chest pain [place] [facility] [place] Cystitis 07/05/2022 >100,000 pansensitive Klebsiella DM [...] performed by Meg Isbell DO at ENDOSCOPY [facility] COLONOSCOPY, DIAGNOSTIC (RECTUM) 09/20/2017 diverticulosis, repeat 5 yrs/COLONOSCOPY FLEXIBLE PROXIMAL DIAGNOSTIC performed by Tez Barragan MD at ENDOSCOPY [facility] EGD, FLEXIBLE, W/BIOPSY 05/20/08 chronic gastritis, inflammatory polyps LIGATE/DIVIDE & STRIP GSV/LSV 1985 Varicose Vein Stripping and Ligation MAMMOGRAM BREAST NEEDLE BIOPSY CORE LEFT Left 01/13/2015 Final pathology demonstrates benign fatty atrophy right breast tissue with 3 mm fibroadenoma containing REMOVE GALLBLADDER [facility] Review of patient's allergies indicates: Allergen [...] bpm Ventricular Rate: 58 Atrial Rate: 58 CO Interval: 150 QRS Duration: 86 QT/QTc: 416/408 ms P-R-T [place]: 37 : 4 : 30 degrees documented in this encounter Nursing Notes * Nimo Garcia LPN - 08/20/2024 9:20 AM EDT Patient here for follow up visit. Light headed and dizziness last evening. [place] rapid heart rate last night - pulse 80. documented in this encounter Miscellaneous Notes * Result Encounter Note - Aliza Alvarenga LPN - 08/21/2024 1:31 PM EDT See telephone encounter. documented in this encounter Plan of Treatment Upcoming Encounters Date Type Department Care Team (Late st Contact Info) Description 08/23/2024 11:00 AM EDT Telemedicine Family Practice 65 [facility] [address] [facility], [place] [phone] College, Pharmacist [address], [place] [address] 08/27/2024 11:20 AM EDT Office Visit Family Practice 65 [facility] [address] [facility], [place] [address] Alan Dukes DO 293 [facility], [place] [address] 09/16/2024 10:00 AM EDT Nurse Only Family Practice 65 [facility] 293 [place] [phone] [place], Nurse Fam Prac [address] [place] [address] 10/17/2024 10:00 AM EDT Nurse Only Family Practice 65 [facility] [address] [place] [address] [place], Nurse Fam Prac [address] [place] [address] 11/07/2024 10:00 AM EDT Office Visit Family Practice 65 [facility] [address] [place] [address] Alan Dukes, DO 293 [place] [address] 11/13/2024 10:15 AM EDT Office Visit Orthopaedics [facility] [address] [place] [address] Braulio Holly, DO [address] [place] [address] Scheduled Orders Name Type Priority Associated Diagnoses Orde r Schedule EXTERNAL EKG 8 TO 15 DAYS Holter Routine Palpitations Expected: 08/21/2024 (Approximate), Expires: 08/20/2025 Scheduled Procedures Name Priority [...] Additional history exists CKD PHOS USE SMARTSET 33589 03/21/202502/21, 02/16/2023, 02/09/2022, Additional history exists Depression Screening 07/17/2025 07/17/2024 CKD HGB USE SMARTSET 80101 08/20/202508/20, 08/20/2024, 11/09/2023, Additional history exists DXA [...] Procedure Name Priority Date/Time Associated Diagnosis Comments DIFFERENTIAL, AUTOMATED Routine 08/20/2024 11:00 AM EDT Hypertension goal BP (blood pressure) < 140/90 Palpitations Pernicious anemia TSH WITH FREE T4 IF INDICATED Routine 08/20/2024 11:00 AM EDT Hypertension goal BP (blood pressure) < 140/90 Palpitations BASIC METABOLIC PANEL Routine 08/20/2024 11:00 AM EDT Type 2 diabetes 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 hypertension (HCC) CBC Routine 08/20/2024 11:00 AM EDT Hypertension goal BP (blood pressure) < 140/90 Palpitations Pernicious anemia CBC Routine 08/20/2024 11:00 AM EDT Hypertension goal BP (blood pressure) < 140/90 Palpitations Pernicious anemia DIFFERENTIAL, TECHNOLOGIST REVIEW Routine 08/20/2024 11:00 AM EDT Hypertension goal BP (blood pressure) < 140/90 Palpitations Pernicious anemia CO ECG ROUTINE ECG W/LEAST 12 LDS I&R ONLY Routine 08/20/2024 10:28 AM EDT Palpitations documented in this encounter Results * DIFFERENTIAL, TECHNOLOGIST REVIEW (08/20/2024 11:00 AM EDT) Blood Venous blood specimen / Unknown Venipuncture / Unknown 08/20/2024 11:00 AM EDT 08/20/2024 11:00 AM EDT us Alan Dukes DO LAB BLOOD ORDERABLES Final Res ult [facility] [address] [place] [address] * DIFFERENTIAL, AUTOMATED (08/20/2024 11:00 AM EDT) WBC 8.23 4.00 - 10.80 K/uL 08/21/2024 12:25 AM EDT [facility] Neutrophils % 69.3 40.0 - 75.0 % 08/21/2024 12:25 AM EDT [facility] Lymphocytes % 21.0 18.0 - 42.0 % 08/21/2024 12:25 AM EDT [facility] Monocytes % 7.8 1.0 - 11.0 % 08/21/2024 12:25 AM EDT [facility] Eosinophils % 1.0 0.0 - 6.0 % 08/21/2024 12:25 AM EDT [facility] Basophils % 0.5 0.0 - 2.0 % 08/21/2024 12:25 AM EDT [facility] Immature Granulocytes % 0.4 0.0 - 2.0 % 08/21/2024 12:25 AM EDT [facility] Absolute Neutrophils 5.71 1.80 - 7.70 K/uL 08/21/2024 12:25 AM EDT [facility] Absolute Lymphocytes 1.73 1.00 - 4.80 K/ul 08/21/2024 12:25 AM EDT [facility] Absolute Monocytes 0.64 0.00 - 1.10 K/uL 08/21/2024 12:25 AM EDT [facility] Absolute Eosinophils 0.08 0.00 - 0.70 K/uL 08/21/2024 12:25 AM EDT [facility] Absolute Basophils 0.04 0.00 - 0.20 K/uL 08/21/2024 12:25 AM EDT [facility] Absolute Immature Granulocytes 0.03 0.00 - 0.20 K/uL 08/21/2024 12:25 AM EDT [facility] Blood Venous blood specimen / Unknown Venipuncture / Unknown 08/20/2024 11:00 AM EDT 08/20/2024 11:00 AM EDT us Alan Dukes DO LAB BLOOD ORDERABLES Final Res ult [facility] [address] [place] [address] * CBC (08/20/2024 11:00 AM EDT) WBC 8.23 4.00 - 10.80 K/uL 08/21/2024 12:25 AM EDT [facility] RBC 4.58 3.85 - 5.15 M/uL 08/21/2024 12:25 AM EDT [facility] HGB 14.3 12.0 - 15.3 g/dL 08/21/2024 12:25 AM EDT [facility] HCT 43.0 36.0 - 45.2 % 08/21/2024 12:25 AM EDT [facility] MCV 93.9 81.5 - 97.5 fL 08/21/2024 12:25 AM EDT [facility] MCH 31.2 27.0 - 34.0 pg 08/21/2024 12:25 AM EDT [facility] MCHC 33.3 32.0 - 36.0 g/dL 08/21/2024 12:25 AM EDT [facility] RDW 12.7 11.5 - 15.5 % 08/21/2024 12:25 AM EDT [facility] PLT 181 140 - 400 K/uL 08/21/2024 12:25 AM EDT [facility] MPV 12.4 6.6 - 11.1 fL 08/21/2024 12:25 AM EDT [facility] nRBCs 0 <=0 /100 WBCs 08/21/2024 12:25 AM EDT [facility] Blood Venous blood specimen / Unknown Venipuncture / Unknown 08/20/2024 11:00 AM EDT 08/20/2024 11:00 AM EDT us Alan Dukes DO LAB BLOOD ORDERABLES Final Res ult [facility] [address] [place] [address] * (ABNORMAL) BASIC METABOLIC PANEL (08/20/2024 11:00 AM EDT) BUN 21(H) 6 - 20 mg/dL 08/21/2024 1:58 AM EDT [facility] CREATININE 0.9 0.5 - 1.0 mg/dL 08/21/2024 1:58 AM EDT [facility] EGFR 62 >=60 mL/min 08/21/2024 1:58 AM EDT [facility] Comment:eGFR is calculated b ased on the CKD-EPI 2020 equation. SODIUM 125(L) 135 - 146 mmol/L 08/21/2024 1:58 AM EDT [facility] POTASSIUM 5.0 3.5 - 5.1 mmol/L 08/21/2024 1:58 AM EDT [facility] CHLORIDE 91(L) 98 - 107 mmol/L 08/21/2024 1:58 AM EDT [facility] CO2 25 22 - 32 mmol/L 08/21/2024 1:58 AM EDT [facility] ANION GAP 9 7 - 15 mmol/L 08/21/2024 1:58 AM EDT [facility] GLUCOSE 159(H) 70 - 120 mg/dL 08/21/2024 1:58 AM EDT [facility] CALCIUM 10.0 8.4 - 10.2 mg/dL 08/21/2024 1:58 AM EDT LABORATORY C Blood Venous blood specimen / Unknown Venipuncture / Unknown 08/20/2024 11:00 AM EDT 08/20/2024 11:00 AM EDT Alan Dukes DO LAB BLOOD ORDERABLES Final Res ult [facility] [address] [place] [address] [address] * TSH WITH FREE T4 IF INDICATED (08/20/2024 11:00 AM EDT) TSH 1.60 0.27 - 4.20 uIU/mL 08/21/2024 1:17 AM EDT [facility] Blood Venous blood specimen / Unknown Venipuncture / Unknown 08/20/2024 11:00 AM EDT 08/20/2024 11:00 AM EDT Alan Dukes DO LAB BLOOD ORDERABLES Final Res ult Performing Organization Address City/[facility]/ZIP Co de Phone Number [facility] [address] [place] [address] * EKG (08/20/2024 10:28 AM EDT) 08/20/2024 10:2 8 AM EDT Narrative Procedure Note Fuentes Camara DO - 08/20/2024 10:28 AM EDT REASON FOR STUDY: palpitations;palpitations CONCLUSIONS: Sinus bradycardia Otherwise normal ECG When compared with ECG of 23-Nov-2017 14:26, Vent. rate has decreased by 33 bpm Ventricular Rate: 58 Atrial Rate: 58 CO Interval: 150 QRS Duration: 86 QT/QTc: 416/408 ms P-R-T [place]: 37 : 4 : 30 degrees us Alan Dukes DO EKG Final Result Performing Organization Address [facility] de Phone Number [facility] CARDIOLOGY documented in this encounter Visit Diagnoses [...] (HCC) documented in this encounter Care Teams [employer] Relationship Specialty Start Date End Date Alan Dukes DO [address] [place] [address] PCP - General Internal Medicine 11/02/23 documented as of this encounter
--- OUTSIDE RECORDS SUMMARY | 2024-08-24 06:06 | External Medical Summary | Summary of Care ---
Author Name Unknown Organization [facility] Address [address] [place] [address] Phone [phone] Care Team Providers Care [employer] Maintainer Name Role Phone Alan Dukes DO Primary Care Provider [phone] Reason for Visit * Reason Onset Date Comments Other 08/16/2024 Encounter Details Date Type Department Care Team (Late st Contact Info) Description 08/16/2024 Telephone Family Practice 65 [facility] [address] [place] [address] Alan Dukes DO [address] [place] [address] Other Allergies Active Allergy Reactions Criticality Noted Date Comments Bactroban Rash 03/02/2010 Lisinopril Cough 12/24/2011 Losartan Other (Please comment) 07/20/2022 hyperkalemia Propoxyphene Unknown 12/27/1999 Darvon documented as of this encounter (statuses as of 08/16/2024) Medications LANCET DEVICE MISCIndications :DM type 2, [...] Tablet by mouth in the morning. Active Metamucil 28.3 % Oral Powder (Psyllium) Dissolve in water and drink daily Active Amitriptyline HCl 10 MG Oral Tablet (Elavil)Indicat ions:Anxiety TAKE TWO TABLETS BY MOUTH AT BEDTIME 200 Tablet 3 08/12/19 24 Active OneTouch Ultra In Vitro Strip (Glucose Blood)Indicatio [...] dinner. Then increase dose as directed by [facility] pharmacist (max 15 units daily) 15 mL 3 5 2:35 PM EDT 05/20/20 24 Active Additional Information Patient taking differently: 12-14 UnitsSubcutaneous BEFORE DINNER, Then increase dose as directed by [facility] pharmacist (max 15 units daily), Reported on 08/14/2024 Xultophy 100-3.6 UNIT-MG/ML Subcutaneous Solution Pen-injector (Insulin Degludec-Liragl utide)Indicatio ns:Type 2 diabetes 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 hypertension (HCC) Inject 28 Units under the skin daily. 30 mL 1 5 7:08 AM EST 06/26/19 25 Active Additional Information Patient taking differently: 30 UnitsSubcutaneous Daily(Non-Specified), Reported on 08/14/2024 ALPRAZolam 0.25 MG Oral Tablet (xaNAX)Indicati ons:Anxiety TAKE 1 TABLET BY MOUTH 3 TIMES A DAY NEEDED FOR ANXIETY 90 Tablet 5 8:56 AM EST 07/10/19 25 Active Amjevita 40 MG/0.4ML Subcutaneous Solution Auto-injector (Adalimumab-att o)Indications:P soriasis vulgaris Inject 1 pen under the skin every 2 weeks 0.8 mL 5 5 1:04 PM EST 07/17/19 25 Active Additional Information Patient not taking.Reported on 08/14/2024 Omeprazole 20 MG Oral Capsule Delayed Release [...] the morning. 30 Tablet 5 08/17/19 25 Active Hospital, Clinic, or Other Facility Administered Medication Ordered Dose Route Frequency Start Date End Date Status Vitamin B-12 (Cyanocobalamin) inj 1,000 mcgIndications:Vitamin B 12 deficiency 1000 mcg IM [id number] 06/19/2024 05/21/2025 Active documented as of this encounter (statuses as of 08/16/2024) Active Problems Problem Noted Date Diagnosed Date [...] as of this encounter (statuses as of 08/16/2024) Resolved Problems Problem Noted Date Diagnosed Date [...] as of this encounter (statuses as of 08/16/2024) Immunizations Name Administration Dates Next Due COVID-19 mRNA, LNP-s, No Pre serve, 2-Dose Series (inTarvo) 04/27/2021,08/08/2020,07/18/2020 COVID-19, LNP-s, No Preserve , Tian-sucrose, Ages 12+ (Pfizer) 10/12/2021 H1N1 2009 Influenza, IM 06/08/2009 Hepatitis B, 20+ yrs 02/16/2023,06/22/19 23,03/10/2022(Defer red: Contraindication),03/10/2022 Pneumococcal Conjugate Vacc, 13 Valent (Prevnar) 12/08/2014 Pneumococcal Conjugate Vacci ne, 20-valent ([id number]) 03/21/2024 Pneumococcal Polysaccharide PPV23 (Pneumovax) 04/24/2006 RSV [...] 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 Relayed information from Dr. Dukes. Dtr acknowledged. * Telephone Encounter - Alan Dukes DO - 08/16/2024 3:52 PM EDT Keep visit on 08/20/2024 * Telephone Encounter - Aliza Ordonez RN - 08/16/2024 2:32 PM EDT Call to pt-spoke with daughter-states she is doing better. BP at noon was 146/73-gave her the spironolactone 12.5 mg. Took BP at 2:15 104/54. States head feels better and not as shaky, just tired-butpt has been up since 2 AM. She is using flonase and sudafed for congestion-helping with congestion-did not take sudafed today. Told to continue to monitor and call with any problems/concerns. Reminded of water conservationist provider available after hours and on weekends. FYI to Dr Dukes * Telephone Encounter - Aliza Ordonez RN - 08/16/2024 10:45 AM EDT Call to pt-spoke with daughter-pt was in the background. Sates she did take an alprazolam this AM. She is feeling a little better. Told I would call this afternoon to see how her BP and head is feeling. Pt had recent CT of head when in the ER on 08/06/24. No acute changes. Daughter states she forgot to say last PM her BP was 81-ffelt weak and like she didn't have strength to walk-she ate and BS went to 130's. BS this AM 127. To continue to monitor. * Telephone Encounter - Alan Dukes DO - 08/16/2024 10:33 AM EDT Start Spironolactone 12.5 mg daily. See if BP improves in the afternoon See when last Alprazolam was taken. * Telephone Encounter - Aliza Ordonez RN - 08/16/2024 8:56 AM EDT Pt's daughter, Debbie, calling. States her mother has been up since 2 AM-states feels like squeezingin her head. BP 188/91 this AM. She took an aspirin around 2 AM and then took Tylenol this morning.Feels shaky-BS 127. Denies any visual changes, difficulty speaking, moving all extremities. No facial dropping, no chest pain. She saw Dr Dukes on Monday-she was called yesterday and told to stopher HCTZ and changed her atenolol to metoprolol ER 100 mg daily-should be getting today. She has not yet taken her morning meds. Told her to rest and drink some fluids. Told would talk with Dr Dukesand would let her know his recommendations. Spoke with Dr Dukes-said make sure she took her atenolol yesterday. Will add spironolactone to hermeds at 12.5 mg daily. To continue to monitor. Has f/u appt on 08/20/24. Call and spoke with pt's daughter-states she had her mom did take her atenolol yesterday. She had her take her morning meds-BP 185/82. Told takes 1-2 hrs for pt's meds to work. To continue to rest and monitor. Agreeable to new med-req send to [facility] on [address]. Told I would check back on pt this afternoon. Rx pended for review * Telephone Encounter - Anupam Torres MED ASSIST - 08/16/2024 8:50 AM EDT Patient daughter called in stating pt blood pressure is 188/91. Patient states she has squeezing inthe head since 2am this morning. documented in this encounter Plan of Treatment Upcoming Encounters Date Type Department Care Team (Late st Contact Info) Description 08/20/2024 10:00 AM EDT Office Visit Family Practice [address] [place] [phone] Alan Dukes, 293 [place] [address] 09/16/2024 10:00 AM EDT Nurse Only Family Practice 65 [facility] 293 [facility] [place] [phone] [place], Nurse Fam Prac [address] [place] [address] 10/17/2024 10:00 AM EDT Nurse Only Family Practice 65 [facility] [address] [facility] [place] [place] [phone] [place], Nurse Fam Prac [address] [place] [address] 11/07/2024 10:00 AM EDT Office Visit Family Practice 65 [facility] [place] [address] [place] [address] Alan Dukes, DO [address] [place] [address] 11/13/2024 10:15 AM EDT Office Visit Orthopaedics [facility] [address] [place] [address] Braulio Holly, [address] [place] [address] Scheduled Procedures Name Priority Associated Diagnoses Date/Ti me COLONOSCOPY FLEXIBLE PROXIMAL DIAGNOSTIC Recall History of colon polyps Health Maintenance Due Date Last Done Comments Adult Wellness Visit 2007 *NEPHROLOGY REFERRAL DUE TO RESISTANT HTN 08/11/2024 Diabetic Foot Exam 09/19/2024 09/20/2023, 0 10/13/2022, 01/06/2022, Additional history exists CKD HGB USE SMARTSET 04459 11/08/202411/08, 11/09/2023, 08/21/2023, Additional history exists Diabetic Eye Exam 12/06/2024 12/07/2023, , 12/07/2023, Additional history exists HbA1c 01/14/2025 07/17/2024, 02/21, 11/09/2023, Additional history exists GFR 02/14/2025 08/14/2024, 02/21, 08/21/2023, Additional history exists Albumin/Creatinine Ratio 02/20/2025 024, 04/06/2023, 02/16/2023, Additional history exists CKD PHOS USE SMARTSET 25024 03/21/202502/21, 02/16/2023, 02/09/2022, Additional history exists Depression [...] hypertension documented in this encounter Care Teams [employer] Maintainer Relationship Specialty Start Date End Date Alan Dukes DO [address] [place] [address] PCP - General Internal Medicine 11/02/23 documented as of this encounter
--- OUTSIDE RECORDS SUMMARY | 2024-08-24 06:06 | External Medical Summary | Summary of Care ---
Author Name Unknown Organization [facility] Address [address] [address] Phone [phone] Care Team Providers Care Center Human Resources Manager Name Role Phone Alan Dukes DO Primary Care Provider [phone] Reason for Visit * Reason Onset Date Comments Test Results 08/15/202408/15 Encounter Details Date Type Department Care Team ([facility] st Contact Info) Description 08/15/2024 Telephone Family Practice [address] [facility] [address] [place] [address] Alan Dukes DO [address] [place] [address] Test Results (08/15) Allergies Active Allergy Reactions Criticality Noted Date Comments Bactroban Rash 03/02/2010 Lisinopril Cough 12/24/2011 Losartan Other (Please comment) 07/20/2022 hyperkalemia Propoxyphene Unknown 12/27/1999 Darvon documented as of this encounter (statuses as of 08/15/2024) Medications LANCET DEVICE MISCIndications :DM type 2, [...] BY MOUTH AT BEDTIME 100 Tablet 1 4 8:44 AM EST 02/28/20 24 2024 Active NovoLOG FlexPen 100 UNIT/ML Subcutaneous Solution Pen-injector (insulin aspart)Indicati ons: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 Then increase dose as directed by [facility] pharmacist (max 15 units daily) 15 mL 3 5 2:35 PM EDT 05/20/20 Active Additional Information Patient taking differently: 12-14 UnitsSubcutaneous BEFORE DINNER, Then increase dose as directed by [facility] pharmacist (max 15 units daily), Reported [...] mouth in the morning. 100 Tablet 3 08/16/19 25 Active Atenolol 100 MG Oral Tablet (Tenormin)Indic ations:Type 2 DM with CKD stage 3 and hypertension (HCC) Take 1 Tablet by mouth at bedtime. 100 Tablet 3 5 12:28 PM EST 02/16/20 24 2024 Disconti nued(Med ication/ Dose Changed) hydroCHLOROthia zide 25 MG Oral Tablet (Hydrodiuril)In dications:Type 2 diabetes 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 hypertension (HCC) Take 1 Tablet by mouth in the morning. 100 Tablet 3 08/13/19 25 2024 Disconti nued(Med ication/ Dose Changed) Hospital, Clinic, or Other Facility Administered Medication Ordered Dose Route Frequency Start Date End Date Status Vitamin B-12 (Cyanocobalamin) inj 1,000 mcgIndications:Vitamin B 12 deficiency 1000 mcg IM [id number] 06/19/2024 05/21/2025 Active documented as of this encounter (statuses as of 08/15/2024) Active Problems Problem Noted Date Diagnosed Date [...] as of this encounter (statuses as of 08/15/2024) Resolved Problems Problem Noted Date Diagnosed Date [...] as of this encounter (statuses as of 08/15/2024) Immunizations Name Administration Dates Next Due COVID-19 mRNA, LNP-s, No Pre serve, 2-Dose Series (Ready) 04/27/2021,08/08/2020,07/18/2020 COVID-19, LNP-s, No Preserve , Tian-sucrose, Ages 12+ (Pfizer) 10/12/2021 H1N1 2009 Influenza, IM 06/08/2009 Hepatitis B, 20+ yrs 02/16/2023,06/22/19 23,03/10/2022(Defer red: Contraindication),03/10/2022 Pneumococcal Conjugate Vacc, 13 Valent (Prevnar) 12/08/2014 Pneumococcal Conjugate Vacci ne, 20-valent ([id number]) 03/21/2024 Pneumococcal Polysaccharide PPV23 (Pneumovax) 04/24/2006 RSV [...] 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 Dukes. Pt acknowledged understanding. Pt agreeable to medication changes. Confirmed OV on 08/20/24. Aware to stop HCTZ; Aware Atenolol will be changed to Metoprolol ER. Pt did take notes and wrote down changes. Pt requests script sent to [facility] - Pharmacy pended. Requested overnight. Medication list updated. Medication order pended. * Telephone Encounter - Nimo Garcia LPN - 08/15/2024 1:29 PM EDT ----- Message from Alan Dukes DO sent at 08/14/2024 7:51 PM EDT ----- Renal function has decreased slightly. Sodium is low. Stop HCTZ Change Atenolol to Metoprolol ER 100 mg daily Follow up on 4/1 as scheduled. documented in this encounter Plan of Treatment Upcoming Encounters Date Type Department Care Team (Late st Contact Info) Description 08/20/2024 10:00 AM EDT Office Visit Family Practice [address] [facility] [address] [place] [phone] Alan Dukes, DO [address] [place] [address] 09/16/2024 10:00 AM EDT Nurse Only Family Practice [address] [facility] [address] [place] [phone] [place], Nurse Fam Prac [address] [place] [address] 10/17/2024 10:00 AM EDT Nurse Only Family Practice [address] [facility] [address] [place] [phone] [place], Nurse Fam Pr[facility] [address] [place] [address] 11/07/2024 10:00 AM EDT Office Visit Family Practice [address] [facility] [address] [place] [phone] Alan Dukes, DO [address] [place] [address] 11/13/2024 10:15 AM EDT Office Visit Orthopaedics [facility] [address] [place] [address] Braulio Holly, DO [address] [place] [address] Scheduled Procedures Name Priority Associated Diagnoses Date/Ti me COLONOSCOPY FLEXIBLE PROXIMAL DIAGNOSTIC Recall History of colon polyps Health Maintenance Due Date Last Done Comments Adult Wellness Visit 2007 *NEPHROLOGY REFERRAL DUE TO RESISTANT HTN 08/11/2024 Diabetic Foot Exam 09/19/2024 09/20/2023, 0 10/13/2022, 01/06/2022, Additional history exists CKD HGB USE SMARTSET 38495 11/08/202411/08, 11/09/2023, 08/21/2023, Additional history exists Diabetic Eye Exam 12/06/2024 12/07/2023, , 12/07/2023, Additional history exists HbA1c 01/14/2025 07/17/2024, 02/21, 11/09/2023, Additional history exists GFR 02/14/2025 08/14/2024, 02/21, 08/21/2023, Additional history exists Albumin/Creatinine Ratio 02/20/2025 024, 04/06/2023, 02/16/2023, Additional history exists CKD PHOS USE SMARTSET 72209 03/21/202502/21, 02/16/2023, 02/09/2022, Additional history exists Depression [...] filedocumented as of this encounter Care Teams Center Human Resources Manager Relationship Specialty Start Date End Date Alan Dukes DO [address] [place] [address] PCP - General Internal Medicine 11/02/23 documented as of this encounter
--- OUTSIDE RECORDS SUMMARY | 2024-08-24 06:06 | External Medical Summary | Summary of Care ---
Author Name Unknown Organization [facility] Address [address] [place] [address] Phone [phone] Care Team Providers Care Spot Worker Name Role Phone Alan Dukes DO Primary Care Provider [phone] Reason for Visit * Reason Comments Acute Encounter Details Date Type Department Care Team (Late st Contact Info) Description 08/14/2024 9:00 AM EDT Office Visit Family Practice [address] [facility] [place] [address] [place] [address] Alan Dukes DO [address] [place], [place] [id number] HTN, goal below 140/90*; Type 2 diabetes 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 hypertension (HCC); Type 2 diabetes mellitus with diabetic polyneuropathy, without long-term current use of insulin (HCC); Asymptomatic bilateral carotid artery stenosis; Current use of insulin ([facility]); JD (generalized anxiety disorder); DYSLIPIDEMIA, GOAL LDL BELOW 100; Gastroesophageal reflux disease without esophagitis; Pernicious anemia; Restless leg syndrome; Risk and functional assessment Allergies Active Allergy Reactions Criticality Noted Date Comments Bactroban Rash 03/02/2010 Lisinopril Cough 12/24/2011 Losartan Other (Please comment) 07/20/2022 hyperkalemia Propoxyphene Unknown 12/27/1999 Darvon documented as of this encounter (statuses as of 08/14/2024) Medications LANCET DEVICE MISCIndications :DM type 2, goal A1c below 7 use bid for 250.00 100 5 06/11/19 08 Active Dealflicks ULTRA SYSTEM W/DEVICE KITIndications: DM type 2, [...] BEDTIME 200 Tablet 3 08/12/19 24 Active Complix Ultra In Vitro Strip (Glucose Blood)Indicatio ns:Type 2 diabetes 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 hypertension (HCC) USE TO TEST BLOOD SUGAR 3 TIMES DAILY 300 Strip 3 4 10:43 AM EST 11/01/19 24 2024 Active Unifine Pentips 31G X 8 MM (Insulin Pen Needle) Use to inject Xultophy daily 100 Each 3 5 1:36 PM EST 12/26/19 24 2024 Active Atenolol 100 MG Oral Tablet (Tenormin)Indic ations:Type 2 DM with CKD stage 3 and hypertension (HCC) Take 1 Tablet by mouth at bedtime. 100 Tablet 3 5 12:28 PM EST 02/16/20 24 Active Simvastatin 20 MG Oral Tablet (Zocor)Indicati [...] dinner. Then increase dose as directed by [facility] pharmacist (max 15 units daily) 15 mL 3 5 2:35 PM EDT 05/20/20 24 Active Additional Information Patient taking differently: 12-14 UnitsSubcutaneous BEFORE DINNER, Then increase dose as directed by [facility] pharmacist (max 15 units daily), Reported [...] 5 8:40 AM EDT 07/30/19 25 Active hydroCHLOROthia zide 25 MG Oral Tablet (Hydrodiuril)In dications:Type 2 diabetes 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 hypertension (HCC) Take 1 Tablet by mouth in the morning. 100 Tablet 3 08/13/19 25 Active Gabapentin 300 MG Oral Capsule (Neurontin)Kalina cations:Restles s leg syndrome Take 1 Capsule by mouth at bedtime. 08/15/19 25 Active Gabapentin 300 MG Oral Capsule (Neurontin)Kalina cations:Restles s leg syndrome Take 1 Capsule by mouth in the morning and 1 Capsule at noon and 1 Capsule before bedtime. 300 Capsule 1 5 3:25 PM EDT 02/28/20 24 2024 Disconti nued(Ref ill) Hospital, Clinic, or Other Facility Administered Medication Ordered Dose Route Frequency Start Date End Date Status Vitamin B-12 (Cyanocobalamin) inj 1,000 mcgIndications:Vitamin B 12 deficiency 1000 mcg IM [id number] 06/19/2024 05/21/2025 Active documented as of this encounter (statuses as of 08/14/2024) Active Problems Problem Noted Date Diagnosed Date [...] as of this encounter (statuses as of 08/14/2024) Resolved Problems Problem Noted Date Diagnosed Date [...] as of this encounter (statuses as of 08/14/2024) Immunizations Name Administration Dates Next Due COVID-19 mRNA, LNP-s, No Pre serve, 2-Dose Series ([employer]) 04/27/2021,08/08/2020,07/18/2020 COVID-19, LNP-s, No Preserve , Tian-sucrose, Ages 12+ (Pfizer) 10/12/2021 H1N1 2008 Influenza, IM 06/08/2009 Hepatitis B, 20+ yrs 02/16/2023,06/22/19 23,03/10/2022(Defer red: Contraindication),03/10/2022 Pneumococcal Conjugate Vacc, 13 Valent (Prevnar) 12/08/2014 Pneumococcal Conjugate Vacci ne, 20-valent ([id number]) 03/21/2024 Pneumococcal Polysaccharide PPV23 (Pneumovax) 04/24/2006 RSV [...] No 07/17/2024 Does the household have a [facility] source of income? 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 [employer] Not on file Not on file Not on file documented as of this encounter Last Filed Vital Signs Vital Sign Reading Time Taken Comments Blood Pressure 132/66 08/14/2024 9:05 AM EDT Pulse 65 08/14/2024 9:05 AM EDT Temperature 36.2 °C (97.1 °F) 08/14/2024 9:05 AM ED T Respiratory Rate 16 08/14/2024 9:05 AM EDT Oxygen Saturation 94% 08/14/2024 9:05 AM EDT Inhaled Oxygen Concentration - - Weight 76.4 kg (168 lb 8 oz) 08/14/2024 9:05 AM EDT Height 157.5 cm (5' 2") 08/14/2024 9:05 AM EDT Body Mass Index 30.82 08/14/2024 9:05 AM EDT documented in this encounter Patient Instructions * Patient Instructions* Nimo GarciaUSMAN - 08/14/2024 9:04 AM EDT Patient Instructions - Fall Prevention (This education is for all patients over 65 regardless of symptoms) Remember to take your current medications as prescribed. In order to prevent falls, you are encouraged to: Exercise Utilize assistive/adaptive devices Avoid multifocal lenses when walking Avoid hazards in home Maintain a regular toileting schedule Any questions please contact our office. Preventing Falls in the Home (This education is for all patients over 65 regardless of symptoms) As you get older, falls are more likely. That’s because your reaction time slows. Your muscles and joints may also get stiffer, making them less flexible. Illness, medications, and vision changes can also affect your balance. A fall could leave you unable to live on your own. To make your home safer, follow these tips: Floors Put nonskid pads under area rugs Remove throw rugs Replace worn floor coverings Tack carpets firmly to each step on carpeted stairs. Put nonskid strips on the edges of uncarpeted stairs Keep floors and stairs free of clutter and cords Arrange furniture so there are clear pathways Clean up any spills right away Bathrooms Install grab bars in the tub or shower Apply nonskid strips or put a nonskid rubber mat in the tub or shower Sit on a bath chair to bathe Use bathmats with nonskid backing Lighting Keep a flashlight in each room Put a nightlight along the pathway between the bedroom and the bathroom Zo Patient Education Copyright© 2008 - 2010 Zo except where otherwise noted Preventing Falls: Exercises to Improve Balance, Flexibility, Strength, and Staying Power (This education is for all patients over 65 regardless of symptoms) Certain types of exercises may help make you less likely to fall. Try the ones below. Or do other exercises that your healthcare provider suggests. Depending on your health, you may need to start slowly. Don’t let that stop you. Even small amounts of exercise can help you. Be sure to talk to yourhealthcare provider before starting any exercise program. Improve Balance Many types of exercise can help improve balance. Nahid chi and yoga are good examples. Here’s another one to try. You can do it anytime and almost anywhere. Stand next to a counter or solid support. Push yourself up onto your tiptoes. Hold for 5 seconds. If you start to lose your balance, hold on to the counter. Rest and repeat 5 times. Work up to holding for 20 to 30 seconds, if you can. Increase Flexibility Being more flexible makes it easier for you to move around safely. Try exercises like the seated hamstring stretch. Sit in a chair and put one foot on a stool. Straighten your leg and reach with both hands down either side of your leg. Reach as far down your leg as you can. Hold for about 20 seconds. Go back to the starting position. Then repeat 5 times. Switch legs. Build Strength “Resistance” exercises help build strength. You can do them without equipment. Or you can use weights, elastic bands, or special machines. One such exercise is called the biceps curl. You can hold a 1 pound weight or even a can of soup. Do this exercise at least 3 times a week. Strive for everyday. Sit up straight in a chair. Keep your elbow close to your body and your wrist straight. Bend your arm, moving your hand up to your shoulder. Then slowly lower your arm. Repeat 5 times. Switch to the other arm. Build Your Staying Power “Aerobic” exercises make your heart and lungs stronger so you can keep moving longer. Walking and swimming are two of the best types of exercises you can do. Using a stationary bike is great, too. Find an aerobic exercise that you enjoy. Start slowly and build up. Even 5 minutes is helpful. Aimfor a goal of 30 minutes, at least 3 times a week. You don’t have to do 30 minutes in one session. Break it up and walk a little throughout the day. More Helpful Tips Start easy. Slowly work up to doing more. Talk with your healthcare provider about the best exercises for you. Call senior centers or health clubs about exercise programs. If needed, have a family member watch you walk every so often to check your stability. Exercise with a friend. Choose an activity you both enjoy. Try exercises that you can do anytime, anywhere. Here are two examples. Have someone with you when you first try these: Practice walking by placing one foot right in front of the other. Stand up and sit down 10 times. Repeat this throughout the day. Zo Patient Education Copyright© 2008 - 2010 Zo except where otherwise noted. Preventing Falls: Moving Safely Using a Cane or Walker (This education is for all patients over 65 regardless of symptoms) Keep the cane away from your feet so you don’t trip. A walking aid, such as a cane or walker, can help you stay more independent and avoid falls. Remember to keep your walking aid within easy reach when you’re in a chair or in bed. And learn how to use it safely so you don’t injure yourself. Using a Cane If you have a stronger side, hold the cane on that side. Get your balance. Move the cane and your weaker leg forward. Support your weight on both the cane and your weaker side. Step with your stronger leg. Start again from step 1. If you’re using a folding walker, be sure you know how to lock it open. Check that it’s locked open before each use. Using a Walker Roll the walker (or lift it, if you’re using one without wheels) forward about 12 inches. Step forward with your weaker leg first. Use the walker to help keep your balance. Bring your other foot forward to the center of the walker. Start again from step 1. Helpful Tips Check with your healthcare provider about the right walking aid to use. Ask about a walker with a seat attached. Check the tips of your cane or walker to make sure they have nonskid covers. Move slowly from room to room. Don’t elizabeth. Sit down to get dressed. Use a yelena pack or backpack to keep your hands free. Get help for jobs that mean climbing, even on a stepstool. Zo Patient Education Copyright© 2008 - 2010 Zo except where otherwise noted. Urinary Incontinence Plan of Care Documentation: (This education is for all patients over 65 regardless of symptoms) Current medications reconciled. Patient encouraged to: Practice kegal exercises Provide education materials Use the restroom every 2 hours throughout the day Limit caffeine, alcohol, spicy foods and acidic foods Keep a bladder diary Limit fluid intake 3-4 hours before bed Lose weight Prevent constipation Take fluid pills at a time when you can get to the bathroom quickly Control sugar better if diabetic Limit fluid intake to 60 oz. per day Wear support stockings (TEDs)if you have edema Nimo Garcia LPN 08/14/2024 Kegel Exercises Kegel exercises don’t require special clothing or equipment. They’re easy to learn and simple to do. And if you do them right, no one can tell you’re doing them, so they can be done almost anywhere. Your doctor, nurse, or physical therapist can answer any questions you have and help you get started. A Weak Pelvic Floor The pelvic floor muscles may weaken due to aging, and vaginal childbirth, injury, surgery, chronic cough, or lack of exercise. If the pelvic floor is weak, your bladder and other pelvic organs may sag out of place. The urethra may also open too easily and allow urine to leak out. Kegel exercises can help you strengthen your pelvic floor muscles so they can better support the pelvic organs and control urine flow. How Kegel Exercises Are Done Try each of the Kegel exercises described below. When you’re doing them, try not to move your leg, buttock, or stomach muscles. While you’re urinating, try to stop the flow of urine. Start and stop it as often as you can. Contract as if you were stopping your urine stream, but do it when you’re not urinating. Tighten your rectum as if trying not to pass gas. Contract your anus, but don’t move your buttocks. Helpful Hints Do your Kegels as often as you can. The more you do them, the faster you’ll feel the results. Pick an activity you do often as a reminder. For instance, do your Kegels every time you sit down. Tighten your pelvic floor before you sneeze, get up from a chair, cough, laugh, or lift. This protects your pelvic floor from injury and can help prevent urine leakage. Try to hold each Kegel for a slow count to five. You probably won’t be able to hold them for thatlong at first, but keep practicing. It will get easier as your pelvic floor gets stronger. Eventually, special weights that you place in your vagina may be recommended to help make your Kegels even more effective. Zo Patient Education Copyright© 2008 - 2010 Zo except where otherwise noted. Here are some helpful tips for your urinary incontinence: (This education is for all patients over 65 regardless of symptoms) Practice Kegel exercises Use the restroom every 2 hours throughout the day Limit caffeine, alcohol, spicy foods, and acidic foods Keep a bladder diary Limit fluid intake 3-4 hours before bed Lose weight Prevent constipation Take fluid pills at a time when can get to the bathroom quickly Control sugar better if diabetic Limit fluid intake to 60 oz. per day Any questions, please feel free to contact our office. documented in this encounter Progress Notes * Alan Dukes, DO - 08/14/2024 12:49 PM EDT SUBJECTIVE: Anabell Cook is a 84 year old female. Chief Complaint Patient presents with Acute HPI: Patient is an 84 year old female with a history of DM type II, CKD stage III, Hyperlipidemia, GERD,B-12 Deficiency Anemia, Psoriasis, and Restless Leg that is seen for fall. The patient fell 4 days ago while cleaning her shower. She did not have dizziness or syncope. She does have pressure in her head and was seen in the ED on 07/27/2024. BP has improved but is still up. No chest pain or shortnessof breath are present. Weight is stable and appetite is fair. Patient Active Problem List Diagnosis GENERAL OSTEOARTHROSIS Pernicious anemia PAROX ATRIAL TACHYCARDIA History of pulmonary embolism Restless leg syndrome Type 2 diabetes mellitus with hemoglobin A1c goal of less than 8.0% ([facility]) DYSLIPIDEMIA, GOAL LDL BELOW 100 HTN, goal [...] mellitus with diabetic peripheral angiopathy without gangrene ([facility]) Current Outpatient Medications Medication Sig Dispense Refill OSTEO BI-FLEX ADV TRIPLE ST PO TABS Take 1 Tab by mouth 2 times a day. ASPIRIN EC 81 MG PO TBEC 1 TABLET DAILY 99 Tab 99 Turmeric 500 MG Oral Capsule Take 1 Capsule by mouth at bedtime. Centrum Silver 50+Women Oral Tablet Take 1 Tablet by mouth in the morning. Metamucil 28.3 % Oral Powder (Psyllium) Dissolve in water and drink daily Amitriptyline HCl 10 MG Oral Tablet (Elavil) TAKE TWO TABLETS BY MOUTH AT BEDTIME 200 Tablet 3 Atenolol 100 MG Oral Tablet (Tenormin) Take 1 Tablet by mouth at bedtime. 100 Tablet 3 Simvastatin 20 MG Oral Tablet (Zocor) TAKE ONE TABLET BY MOUTH AT BEDTIME 100 Tablet 1 NovoLOG FlexPen 100 UNIT/ML Subcutaneous Solution Pen-injector (insulin aspart) Inject 9-11 Units under the skin daily before dinner. Then increase dose as directed by [facility] pharmacist (max 15 units daily) (Patient taking differently: Inject 12-14 Units under the skin daily before dinner. Then increase dose as directed by [facility] pharmacist (max 15 units daily)) 15 [...] mouth in the morning. 100 Tablet 3 hydroCHLOROthiazide 25 MG Oral Tablet (Hydrodiuril) Take 1 Tablet by mouth in the morning. 100 Tablet 3 Gabapentin 300 MG Oral Capsule (Neurontin) Take 1 Capsule by mouth at bedtime. LANCET DEVICE MISC use bid for 250.00 100 5 Dealflicks ULTRA SYSTEM W/DEVICE KIT Use up to four times a day as directed 1 Kit 0 Intrapaceuch Ultra In Vitro Strip (Glucose Blood) USE [...] stenosis 02/09/2022 Chest pain 1995 [place] [facility] 1995 Cystitis 07/05/2022 >100,000 pansensitive Klebsiella DM [...] performed by Meg Isbell DO at ENDOSCOPY [facility] COLONOSCOPY, DIAGNOSTIC (RECTUM) 09/20/2017 diverticulosis, repeat 5 yrs/COLONOSCOPY FLEXIBLE PROXIMAL DIAGNOSTIC performed by Tez Barragan MD at ENDOSCOPY [facility] EGD, FLEXIBLE, W/BIOPSY 05/20/08 chronic gastritis, inflammatory polyps LIGATE/DIVIDE & STRIP GSV/LSV 1985 Varicose Vein Stripping and Ligation MAMMOGRAM BREAST NEEDLE BIOPSY CORE LEFT Left 01/13/2015 Final pathology demonstrates benign fatty atrophy right breast tissue with 3 mm fibroadenoma containing REMOVE GALLBLADDER 1969 [facility]. Review of patient's allergies indicates: Allergen Reactions Bactroban Rash Lisinopril Cough Losartan Other (Please comment) hyperkalemia Propoxyphene Unknown Darvon Review of Systems Constitutional: Positive for fatigue. Negative for appetite change and unexpected weight change. Respiratory: Negative for cough, shortness of breath and wheezing. Cardiovascular: Negative for chest pain, palpitations and leg swelling. Gastrointestinal: Negative for abdominal pain, blood in stool, constipation, diarrhea, nausea and vomiting. Genitourinary: Negative for dysuria, frequency and hematuria. Musculoskeletal: Negative for back pain and gait problem. Neurological: Positive for dizziness and headaches. Negative for syncope. Psychiatric/Behavioral: Negative for confusion, decreased concentration and sleep disturbance. OBJECTIVE: BP 132/66 (BP Site: Left Arm, BP Position: Sitting, BP Cuff Size: Regular) | Pulse 65 | Temp 97.1 °F (36.2 °C) (Tympanic) | Resp 16 | Ht 5' 2" (1.575 m) | Wt 168 lb 8 oz (76.4 kg) | SpO2 94% | BMI 30.82 kg/m² | BSA 1.83 m² Physical Exam Vitals and nursing note reviewed. Constitutional: General: She is not in acute distress. Appearance: Normal appearance. She is not toxic-appearing. HENT: Head: Normocephalic and atraumatic. Cardiovascular: Rate and Rhythm: Normal rate and regular rhythm. Pulses: Normal pulses. Heart sounds: Normal heart sounds. No murmur [...] baseline. Motor: No weakness. Gait: Gait normal. Psychiatric: Mood and Affect: Mood normal. Behavior: Behavior normal. Thought Content: Thought content normal. PLAN AND ASSESSMENT: HTN, goal below 140/90 (Primary) - BASIC METABOLIC PANEL Continue HCTZ, and Amlodipine Will change atenolol to metoprolol after labs completed Type 2 diabetes 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 hypertension (HCC) Continue Xulophy, and Novolog Type 2 diabetes mellitus with diabetic polyneuropathy, without long-term current use of insulin (HCC) Continue Xulophy, and Novolog Asymptomatic bilateral carotid artery stenosis Current use of insulin (HCC) JD (generalized anxiety disorder) Continue Alprazolam DYSLIPIDEMIA, GOAL LDL BELOW 100 Continue Simvastatin Gastroesophageal reflux disease without esophagitis Continue Omeprazole Pernicious anemia Continue B 12 Restless leg syndrome Continue gabapentin Risk and functional assessment Follow Up: Return in about 1 week (around 08/21/2024), or if symptoms worsen or fail to improve. Alan Dukes DO 12:49 PM 08/14/2024 * Nimo Garcia LPN - 08/14/2024 9:04 AM EDT Fall Risk Plan of Care Documentation: - Current medications reconciled Patient encouraged to: - Exercise - Provide education materials for Core strengthening - Utilize assistive/adaptive devices - Provide education materials - Avoid multifocal lenses when walking - Avoid hazards in home - Provide education materials - Maintain a regular toileting schedule Nimo Garcia LPN 08/14/2024 documented in this encounter Nursing Notes * Nimo Garcia LPN - 08/14/2024 9:02 AM EDT Patient here for acute visit. Reports she had a fall Monday night. States she cleaning out the shower, was leaning over and the next thing she knew she fell onto her right side into the shower. Denies pain. Small bruise noted right elbow. Reports she has been having pressure in her head. Reports she has been getting lightheaded when bending over. documented in this encounter Plan of Treatment Upcoming Encounters Date Type Department Care Team (Late st Contact Info) Description 08/20/2024 10:00 AM EDT Office Visit Family Practice 65 [facility] [address] [facility], [place] [id number] Alan Dukes, [address] [place] [address] 09/16/2024 10:00 AM EDT Nurse Only Family Practice 65 [facility] [address] [facility] [place] [phone] [place], Nurse Fam Prac [address] [place] [address] 10/17/2024 10:00 AM EDT Nurse Only Family Practice 65 [facility] [address] [facility], [place] [phone] [employer], Nurse Fam Prac [address] [place] [address] 11/07/2024 10:00 AM EDT Office Visit Family Practice 65 [facility] [place] [address] [facility], [place] [phone] Alan Dukes, DO [address] [place] [address] 11/13/2024 10:15 AM EDT Office Visit Orthopaedics [facility] [address] [place] [address] Braulio Holly, DO [address] [place] [phone] Scheduled Procedures Name Priority Associated Diagnoses Date/Ti me COLONOSCOPY FLEXIBLE PROXIMAL DIAGNOSTIC Recall History of colon polyps Health Maintenance Due Date Last Done Comments Adult Wellness Visit 2007 *NEPHROLOGY REFERRAL DUE TO RESISTANT HTN 08/11/2024 Diabetic Foot Exam 09/19/2024 09/20/2023, 0 10/13/2022, 01/06/2022, Additional history exists CKD HGB USE SMARTSET 11470 11/08/202411/08, 11/09/2023, 08/21/2023, Additional history exists Diabetic Eye Exam 12/06/2024 12/07/2023, , 12/07/2023, Additional history exists HbA1c 01/14/2025 07/17/2024, 02/21, 11/09/2023, Additional history exists GFR 02/14/2025 08/14/2024, 02/21, 08/21/2023, Additional history exists Albumin/Creatinine Ratio 02/20/2025 024, 04/06/2023, 02/16/2023, Additional history exists CKD PHOS USE SMARTSET 20015 03/21/202502/21, 02/16/2023, 02/09/2022, Additional history exists Depression [...] Procedure Name Priority Date/Time Associated Diagnosis Comments BASIC METABOLIC PANEL Routine 08/14/2024 9:43 AM EDT HTN, goal below 140/90 documented in this encounter Results * (ABNORMAL) BASIC METABOLIC PANEL (08/14/2024 9:43 AM EDT) BUN 27(H) 6 - 20 mg/dL 08/14/2024 4:04 PM EDT [facility] CREATININE 1.2(H) 0.5 - 1.0 mg/dL 08/14/2024 4:04 PM EDT [facility] EGFR 46(L) >=60 mL/min 08/14/2024 4:04 PM EDT [facility] Comment:eGFR is calculated b ased on the CKD-EPI 2020 equation. SODIUM 132(L) 135 - 146 mmol/L 08/14/2024 4:04 PM EDT [facility] POTASSIUM 4.1 3.5 - 5.1 mmol/L 08/14/2024 4:04 PM EDT [facility] CHLORIDE 93(L) 98 - 107 mmol/L 08/14/2024 4:04 PM EDT [facility] CO2 27 22 - 32 mmol/L 08/14/2024 4:04 PM EDT [facility] ANION GAP 12 7 - 15 mmol/L 08/14/2024 4:04 PM EDT [facility] GLUCOSE 265(H) 70 - 120 mg/dL 08/14/2024 4:04 PM EDT [facility] CALCIUM 9.5 8.4 - 10.2 mg/dL 08/14/2024 4:04 PM EDT [facility] Blood Venous blood specimen / Unknown Venipuncture / Unknown 08/14/2024 9:43 AM EDT 08/14/2024 9:43 AM EDT us Alan Dukes DO LAB BLOOD ORDERABLES Final Res ult LABORATORY [facility] [address] [place] [address] documented in this encounter Visit Diagnoses Diagnosis HTN, goal below 140/90- Primary Unspecified essential hypertension Type 2 diabetes 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 hypertension (HCC) Type 2 diabetes mellitus with diabetic polyneuropathy, without long-term current use of insulin (HCC) Asymptomatic bilateral carotid artery stenosis Occlusion 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 without mention of cerebral infarction Current use of insulin (HCC) Encounter for long-term (current) use of insulin JD (generalized anxiety disorder) Generalized anxiety disorder DYSLIPIDEMIA, GOAL LDL BELOW 100 Other and unspecified hyperlipidemia Gastroesophageal reflux disease without esophagitis Esophageal reflux Pernicious anemia Restless leg syndrome Restless legs syndrome (RLS) Risk and functional assessment Screening for unspecified condition documented in this encounter Care Teams Spot Worker Relationship Specialty Start Date End Date Alan Dukes DO [address] [place] [address] PCP - General Internal Medicine 11/02/23 documented as of this encounter
--- OUTSIDE RECORDS SUMMARY | 2024-08-24 06:06 | External Medical Summary | Summary of Care ---
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 (HCC)*; DYSLIPIDEMIA, GOAL LDL BELOW 100; Gastroesophageal reflux disease without esophagitis; JD (generalized anxiety disorder); Pernicious anemia; Restless leg syndrome; Asymptomatic bilateral carotid artery stenosis; Psoriasis vulgaris Allergies Active Allergy Reactions Criticality Noted Date Comments Bactroban Rash 03/02/2010 Lisinopril Cough 12/24/2011 Losartan Other (Please comment) 07/20/2022 hyperkalemia Propoxyphene Unknown 12/27/1999 Darvon documented as of this encounter (statuses as of 08/19/2024) Medications LANCET DEVICE MISCIndications :DM type 2, goal A1c below 7 use bid for 250.00 100 5 06/11/19 08 Active Biocontrol SYSTEM W/DEVICE KITIndications: DM type 2, goal [...] dinner. Then increase dose as directed by [facility] pharmacist (max 15 units daily) 15 mL 3 5 2:35 PM EDT 05/20/20 24 Active Additional Information Patient taking differently: 12-14 UnitsSubcutaneous BEFORE DINNER, Then increase dose as directed by [facility] pharmacist (max 15 units daily), Reported on 08/19/2024 Xultophy 100-3.6 UNIT-MG/ML Subcutaneous Solution Pen-injector (Insulin Degludec-Liragl utide)Indicatio ns:Type 2 diabetes 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 hypertension (HCC) Inject 28 Units under the skin daily. 30 mL 1 5 7:08 AM EST 06/26/19 25 Active Additional Information Patient taking differently: 30 UnitsSubcutaneous Daily(Non-Specified), Reported on 08/19/2024 ALPRAZolam 0.25 MG Oral Tablet (xaNAX)Indicati ons:Anxiety TAKE 1 TABLET BY MOUTH 3 TIMES A DAY NEEDED FOR ANXIETY 90 Tablet 5 8:56 AM EST 07/10/19 25 Active Amjevita 40 MG/0.4ML Subcutaneous Solution Auto-injector (Adalimumab-att o)Indications:P soriasis vulgaris Inject 1 pen under the skin every 2 weeks 0.8 mL 5 5 1:04 PM EST 07/17/19 25 Active Additional Information Patient not taking.Reported on 08/19/2024 Omeprazole 20 MG Oral Capsule Delayed Release [...] mcgIndications:Vitamin B 12 deficiency 1000 mcg IM [id number] 06/19/2024 05/21/2025 Active documented as of this encounter (statuses as of 08/19/2024) Active Problems Problem Noted Date Diagnosed Date [...] as of this encounter (statuses as of 08/19/2024) Resolved Problems Problem Noted Date Diagnosed Date [...] as of this encounter (statuses as of 08/19/2024) Immunizations Name Administration Dates Next Due COVID-19 mRNA, LNP-s, No Pre serve, 2-Dose Series (AgLocal) 04/27/2021,08/08/2020,07/18/2020 COVID-19, LNP-s, No Preserve , Tian-sucrose, Ages 12+ (Pfizer) 10/12/2021 H1N1 2009 Influenza, IM 06/08/2009 Hepatitis B, 20+ yrs 02/16/2023,06/22/19 23,03/10/2022(Defer red: Contraindication),03/10/2022 Pneumococcal Conjugate Vacc, 13 Valent (Prevnar) 12/08/2014 Pneumococcal Conjugate Vacci ne, 20-valent ([id number]) 03/21/2024 Pneumococcal Polysaccharide PPV23 (Pneumovax) 04/24/2006 RSV [...] 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 [employer] Not on file Not on file Not on file documented as of this encounter Last Filed Vital Signs Vital Sign Reading Time Taken Comments Blood Pressure 156/64 08/19/2024 9:03 AM EDT Pulse 58 08/19/2024 9:03 AM EDT Temperature 36.3 °C (97.4 °F) 08/19/2024 9:03 AM ED T Respiratory Rate 16 08/19/2024 9:03 AM EDT Oxygen Saturation 98% 08/19/2024 9:03 AM EDT Inhaled Oxygen Concentration - - Weight 75.7 kg (166 lb 12.8 oz) 08/19/2024 9:03 AM EDT Height 157.5 cm (5' 2") 08/19/2024 9:03 AM EDT Body Mass Index 30.51 08/19/2024 9:03 AM EDT documented in this encounter Progress Notes * Alan Dukes, - 08/19/2024 9:38 AM EDT Images from the original note were not included. Subjective Anabell Cook is a 84 year old female that presents for Acute History of Present Illness Anabell Cook is a 84 year old female with a history of DM type II, CKD stage III, Hyperlipidemia, GERD, B-12 Deficiency Anemia, Psoriasis, and Restless Leg who presents for uncontrolled blood pressure. She is accompanied by her oldest daughter, Debbie, who is a nurse. She has been using alprazolam more frequently, now taking it once in the morning and once in the evening, compared to her previous use of once daily. She has not been taking amitriptyline regularly, only using it as needed for sleep. She had difficulty sleeping on Monday night, attributing it to a water pill that caused frequent urination. She is currently taking amlodipine and recently switched from atenolol to metoprolol. She experienced a fast heartbeat twice yesterday and was up five times to use the bathroom at night. She also reports cold feet. She reports increased anxiety symptoms and has been using alprazolam more frequently, taking it twice a day. She is concerned about dependency on the medication. She has a history of hypertension and is currently taking amlodipine. Spironolactone was started 3 days ago. She recently switched from atenolol to metoprolol and reports experiencing cold feet. She has a history of diabetes and reports her blood sugar levels have been 'not too bad' in the morning but higher at night. She did not eat this morning and therefore did not take her sugar or pills. Her blood sugar was 123 yesterday morning, but it was low at 68 on Monday night, which she attributes to not eating much. She is on 12 units of Novolog before meals. She has been experiencing anosmia and ageusia for several years, stating she cannot taste or smell anything, which affects her appetite and enjoyment of food. She describes eating as 'like I'm chewing mush'. She reports nasal congestion and has been using Flonase, which has helped clear her nasal passages,although she still experiences some bleeding when blowing her nose. No chest pain, shortness of breath, or swelling in the feet. She mentions shoulder pain that has not improved with her last injection. Patient Active Problem List Diagnosis GENERAL OSTEOARTHROSIS Pernicious anemia PAROX ATRIAL TACHYCARDIA History of pulmonary embolism Restless leg syndrome Type 2 diabetes mellitus with hemoglobin A1c goal of less than 8.0% ([facility]) DYSLIPIDEMIA, GOAL LDL BELOW 100 [...] with diabetic peripheral angiopathy without gangrene (HCC) Past Surgical History: Procedure Laterality Date CATARACT SURGERY,COMPLEX Left 12/2014 CATARACT SURGERY,COMPLEX Right 02/02/2015 COLONOSCOPY W/ BIOPSY (RECTUM) 05/06/08 polyps, adenomatous tissue COLONOSCOPY, DIAGNOSTIC (RECTUM) 05/07/2013 COLONOSCOPY FLEXIBLE PROXIMAL DIAGNOSTIC performed by Meg Isbell DO at ENDOSCOPY [facility] COLONOSCOPY, DIAGNOSTIC (RECTUM) 09/20/2017 diverticulosis, repeat 5 yrs/COLONOSCOPY FLEXIBLE PROXIMAL DIAGNOSTIC performed by Tez Barragan MD at ENDOSCOPY [facility] EGD, FLEXIBLE, W/BIOPSY 05/20/08 chronic gastritis, inflammatory polyps LIGATE/DIVIDE & STRIP GSV/LSV 1985 Varicose Vein Stripping and Ligation MAMMOGRAM BREAST NEEDLE BIOPSY CORE LEFT Left 01/13/2015 Final pathology demonstrates benign fatty atrophy right breast tissue with 3 mm fibroadenoma containing REMOVE GALLBLADDER [facility]. Review of patient's allergies indicates: Allergen Reactions Bactroban Rash Lisinopril Cough Losartan Other (Please comment) hyperkalemia Propoxyphene Unknown Darvon Current Medications: Spironolactone 25 MG Oral Tablet (Aldactone) Metoprolol Succinate ER 100 MG Oral Tablet Extended Release 24 Hour (toPROL XL) Gabapentin 300 MG Oral Capsule (Neurontin) amLODIPine Besylate 10 MG Oral Tablet (Norvasc) Omeprazole 20 MG Oral Capsule Delayed Release (PriLOSEC) ALPRAZolam 0.25 MG Oral Tablet (xaNAX) Xultophy 100-3.6 UNIT-MG/ML Subcutaneous Solution Pen-injector (Insulin Degludec-Liraglutide) NovoLOG FlexPen 100 UNIT/ML Subcutaneous Solution Pen-injector (insulin aspart) Simvastatin 20 MG Oral Tablet (Zocor) Amitriptyline HCl 10 MG Oral Tablet (Elavil) Centrum Silver 50+Women Oral Tablet Turmeric 500 MG Oral Capsule ASPIRIN EC 81 MG PO TBEC OSTEO BI-FLEX ADV TRIPLE ST PO TABS Amjevita 40 MG/0.4ML Subcutaneous Solution Auto-injector (Adalimumab-atto) Unifine Pentips 31G X 8 MM (Insulin Pen Needle) OneTouch Ultra In Vitro Strip (Glucose Blood) Metamucil 28.3 % Oral Powder (Psyllium) ONETOUCH ULTRA SYSTEM W/DEVICE KIT LANCET DEVICE MISC Vitamin B-12 (Cyanocobalamin) inj 1,000 mcg Review of Systems Constitutional: Positive for appetite change and fatigue. Negative for chills and fever. HENT: Negative for congestion, sore throat and trouble swallowing. Respiratory: Negative for cough, shortness of breath and wheezing. Cardiovascular: Negative for chest pain, palpitations and leg swelling. Gastrointestinal: Negative for abdominal pain, blood in stool, constipation, diarrhea, nausea and vomiting. Genitourinary: Negative for dysuria, frequency and hematuria. Neurological: Positive for dizziness. Negative for syncope and headaches. Psychiatric/Behavioral: Positive for sleep disturbance. Negative for confusion and decreased concentration. The patient is nervous/anxious. Objective BP 156/64 (BP Site: Left Arm, BP Position: Sitting, BP Cuff Size: Regular) | Pulse 58 | Temp 97.4 °F (36.3 °C) (Tympanic) | Resp 16 | Ht 5' 2" (1.575 m) | Wt 166 lb 12.8 oz (75.7 kg) | SpO2 98% | BMI 30.51 kg/m² | BSA 1.82 m² Physical Exam Physical Exam Vitals and nursing note reviewed. [...] Gait normal. Psychiatric: Mood and Affect: Mood is anxious. Results LABS Results for orders placed or performed in visit on 08/14/24 BASIC METABOLIC PANEL Result Value Ref Range BUN 27 (H) 6 - 20 mg/dL CREATININE 1.2 (H) 0.5 - 1.0 mg/dL EGFR 46 (L) >=60 mL/min SODIUM 132 (L) 135 - 146 mmol/L POTASSIUM 4.1 3.5 - 5.1 mmol/L CHLORIDE 93 (L) 98 - 107 mmol/L CO2 27 22 - 32 mmol/L ANION GAP 12 7 - 15 mmol/L GLUCOSE 265 (H) 70 - 120 mg/dL CALCIUM 9.5 8.4 - 10.2 mg/dL *Note: Due to a large number of results and/or encounters for the requested time period, some results have not been displayed. A complete set of results can be found in Results Review. Assessment and Plan Assessment & Plan Hypertension Issues with blood pressure management, possibly exacerbated by Sudafed, which can increase blood pressure and heart rate. Transitioning from atenolol to metoprolol and experiencing nocturia, possiblydue to spironolactone timing. Discussed taking metoprolol at night and spironolactone in the morning - Discontinue Sudafed due to its potential to elevate blood pressure. - Administer metoprolol at night instead of atenolol. - Take Spironolactone early in the morning to reduce nocturia. - Check blood pressure in 1 day Type 2 diabetes mellitus Variable blood glucose levels, with a recent low of 68 mg/dL, possibly due to insufficient food intake. On Novolog and Xultophy, with concern about insulin dosage relative to food intake. Emphasized regular meals to prevent hypoglycemia and the need to discuss insulin dosage with the diabetes care team. - Ensure regular meals to prevent hypoglycemia. - Monitor blood glucose levels regularly. - Discuss insulin dosage with the diabetes care team. Chronic kidney disease, stage 3a Chronic kidney disease, stage 3a. Plans to monitor sodium levels, which were previously low on hydrochlorothiazide. Discontinued hydrochlorothiazide to address this issue. - Check sodium levels to ensure normalization after discontinuing hydrochlorothiazide. Generalized anxiety disorder Increased anxiety symptoms, using alprazolam more frequently (morning and evening). Concerned aboutpotential dependency on alprazolam. Discussed managing anxiety and potential risks of medication dependency. Currently feels well- managed with the current regimen and does not wish to increase medication use. - Continue alprazolam 0.25 mg oral tid as needed. - Evaluate the need for additional anxiety management strategies. Loss of taste and smell Long-standing loss of taste and smell, affecting appetite and enjoyment of food. Likely age-related, impacting quality of life. Follow-up Scheduled for follow-up appointments to monitor conditions and adjust treatment as necessary. Will return tomorrow for further evaluation and lab tests. - Return for follow-up appointment tomorrow to check blood pressure and see Abiola. - Schedule lab tests to monitor sodium levels. Wrap-Up Text in this note was generated using an [employer] documentation service. I discussed the use of a device to record and summarize our discussion today. All persons present during the encounter consented to its use. documented in this encounter Nursing Notes * Nimo Garcia LPN - 08/19/2024 9:01 AM EDT Patient here for acute visit. Reports she feels has been feeling a rapid heart beat - but not today. Would like to discuss medications. BSG yesterday am 123. Has not taken amitriptyline in approx 2 weeks. Did not take any medications today - has not eaten yet today. documented in this encounter Plan of Treatment Upcoming Encounters Date Type Department Care Team (Late st Contact Info) Description 08/20/2024 10:00 AM EDT Office Visit Family Practice [address] [place] [address] Alan Dukes DO [address] [place] [address] 09/16/2024 10:00 AM EDT Nurse Only Family Practice 65 [facility] [address] [place] [phone] College, Nurse Ravi Prac [address] [place] [address] 10/17/2024 10:00 AM EDT Nurse Only Family Practice 65 [facility] [address] [place] [phone] College, Nurse Fam Prac [address] [place] [address] 11/07/2024 10:00 AM EDT Office Visit Family Practice 65 [facility] [place] [address] [place] [address] Alan Dukes, DO [address] [facility], [place] [address] 11/13/2024 10:15 AM EDT Office Visit Orthopaedics [facility] [address] [place] [phone] Braulio Holly, DO [address] [place] [phone] Scheduled Orders Name Type Priority Associated Diagnoses Orde r Schedule BASIC METABOLIC PANEL Lab Routine Type 2 diabetes 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 hypertension (HCC) Expected: 08/19/2024 (Approximate), Expires: 08/19/2025 Scheduled Procedures Name Priority Associated Diagnoses Date/Ti me COLONOSCOPY FLEXIBLE PROXIMAL DIAGNOSTIC Recall History of colon polyps Health Maintenance Due Date Last Done Comments Adult Wellness Visit 2007 Diabetic Foot Exam 09/19/2024 09/20/2023, 0 10/13/2022, 01/06/2022, Additional history exists CKD HGB USE SMARTSET 20035 11/08/202411/08, 11/09/2023, 08/21/2023, Additional history exists Diabetic Eye Exam 12/06/2024 12/07/2023, , 12/07/2023, Additional history exists HbA1c 01/14/2025 07/17/2024, 02/21, 11/09/2023, Additional history exists GFR 02/14/2025 08/14/2024, 02/21, 08/21/2023, Additional history exists Albumin/Creatinine Ratio 02/20/202502/20/2 024, 04/06/2023, 02/16/2023, Additional history exists CKD PHOS USE SMARTSET 13812 03/21/202502/21, 02/16/2023, 02/09/2022, Additional history exists Depression [...] as of this encounter Visit Diagnoses Diagnosis Type 2 diabetes 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 hypertension (HCC)- Primary DYSLIPIDEMIA, GOAL LDL BELOW 100 Other and unspecified hyperlipidemia Gastroesophageal reflux disease without esophagitis Esophageal reflux JD (generalized anxiety disorder) Generalized anxiety disorder Pernicious anemia Restless leg syndrome Restless legs syndrome (RLS) Asymptomatic bilateral carotid artery stenosis Occlusion 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 without mention of cerebral infarction Psoriasis vulgaris Other psoriasis documented in this encounter Care Teams Narcotics Agent Relationship Specialty Start Date End Date Alan Dukes DO [address] [place] [address] PCP - General Internal Medicine 11/02/23 documented as of this encounter
--- OUTSIDE RECORDS SUMMARY | 2024-08-24 06:06 | External Medical Summary ---
Author Name Unknown Address Unknown Organization K01:[facility] [place] [facility] [address] [facility] [address] Laboratory Report Ordering Provider Test Date Status JONO KATE 08/14/2024 09:43:17 Final Observation Date Value Abnormality Reference (Units ) Status BUN 08/14/2024 09:43:17 27 Above high normal 6-20 (mg/dL) Final Creatinine 08/14/2024 09:43:17 1.2 Above high normal 0.5-1.0 (mg/dL) Final Glomerular filtration rate/1.73 sq M.predicted [Volume Rate/Area] in Serum, Plasma or Blood by Creatinine-based formula (CKD-EPI) 08/14/2024 09:43:17 46 Below low normal >=60 (mL/min) Final eGFR is calculated based on the CKD-EPI 2020 equation. Sodium 08/14/2024 09:43:17 132 Below low normal 135 -146 (mmol/L) Final Potassium 08/14/2024 09:43:17 4.1 3.5-5.1 (m mol/L) Final Cl 08/14/2024 09:43:17 93 Below low normal 98- 107 (mmol/L) Final CO2 08/14/2024 09:43:17 27 22-32 (mmo l/L) Final Anion gap 08/14/2024 09:43:17 12 7-15 (mmol /L) Final Glucose 08/14/2024 09:43:17 265 Above high normal 70 -120 (mg/dL) Final Calcium 08/14/2024 09:43:17 9.5 8.4-10.2 ( mg/dL) Final Performing Location [facility] [place] [address] [place] [address]
--- OUTSIDE RECORDS SUMMARY | 2024-08-24 06:07 | External Medical Summary | Summary of Care ---
Author Name Unknown Organization [facility] Address [address] [facility] [address] Phone [phone] Care Team Providers Care Slate Trimmer Name Role Phone Alan Dukes DO Primary Care Provider [phone] Reason for Visit * Reason Comments Nurse Documentation [place] for BP check. Encounter Details Date Type Department Care Team (Late st Contact Info) Description 08/05/2024 10:00 AM EDT Nurse Only Family Practice [address] [phone] College, Nurse [facility] Prac [address] [address] Nurse Documentation ([place] for BP check. ) Allergies Active Allergy Reactions Criticality Noted Date Comments Bactroban Rash 03/02/2010 Lisinopril Cough 12/24/2011 Losartan Other (Please comment) 07/20/2022 hyperkalemia Propoxyphene Unknown 12/27/1999 Darvon documented as of this encounter (statuses as of 08/06/2024) Medications LANCET DEVICE MISCIndications :DM type 2, [...] Oral Capsule Take 1 Capsule by mouth in the morning. 10/07/19 22 Active Centrum Silver 50+Women Oral [...] 1:36 PM EST 12/26/19 24 025 Active Atenolol 100 MG Oral Tablet (Tenormin)Indic ations:Type 2 DM with CKD stage 3 and hypertension (HCC) Take 1 Tablet by mouth at bedtime. 100 Tablet 3 5 12:28 PM EST 02/16/20 24 Active Gabapentin 300 MG Oral Capsule (Neurontin)Kalina cations:Restles s leg syndrome Take 1 Capsule by mouth in the morning and 1 Capsule at noon and 1 Capsule before bedtime. 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 Then increase dose as directed by [facility] pharmacist (max 15 units daily) 15 mL 3 5 2:35 PM EDT 05/20/20 24 Active Additional Information Patient taking differently: 12-14 UnitsSubcutaneous BEFORE DINNER, Then increase dose as directed by [facility] pharmacist (max 15 units daily), Reported on 08/05/2024 Xultophy 100-3.6 UNIT-MG/ML Subcutaneous Solution Pen-injector (Insulin Degludec-Liragl utide)Indicatio ns:Type 2 diabetes 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 hypertension (HCC) Inject 28 Units under the skin daily. 30 mL 1 5 7:08 AM EST 06/26/19 25 Active Additional Information Patient taking differently: 30 UnitsSubcutaneous Daily(Non-Specified), Reported on 08/05/2024 ALPRAZolam 0.25 MG Oral Tablet (xaNAX)Indicati ons:Anxiety TAKE 1 TABLET BY MOUTH 3 TIMES A DAY NEEDED FOR ANXIETY 90 Tablet 5 8:56 AM EST 07/10/19 25 Active Amjevita 40 MG/0.4ML Subcutaneous Solution Auto-injector (Adalimumab-att o)Indications:P soriasis vulgaris Inject 1 pen under the skin every 2 weeks 0.8 mL 5 5 1:04 PM EST 07/17/19 25 Active Omeprazole 20 MG Oral Capsule Delayed Release [...] 1 Tablet by mouth in the morning. 30 Tablet 1 08/02/19 25 Active Hospital, Clinic, or Other Facility Administered Medication Ordered Dose Route Frequency Start Date End Date Status Vitamin B-12 (Cyanocobalamin) inj 1,000 mcgIndications:Vitamin B 12 deficiency 1000 mcg IM [id number] 06/19/2024 05/21/2025 Active documented as of this encounter (statuses as of 08/06/2024) Active Problems Problem Noted Date Diagnosed Date Psoriasis 07/17/2024 Type 2 diabetes mellitus wit h diabetic [...] as of this encounter (statuses as of 08/06/2024) Resolved Problems Problem Noted Date Diagnosed Date Resolved Date Type 2 DM with CKD stage 3 [...] as of this encounter (statuses as of 08/06/2024) Immunizations Name Administration Dates Next Due COVID-19 mRNA, LNP-s, No Pre serve, 2-Dose Series (Spoonity) 04/27/2021,08/08/2020,07/18/2020 COVID-19, LNP-s, No Preserve , Tian-sucrose, Ages 12+ (Pfizer) 10/12/2021 H1N1 2009 Influenza, IM 06/08/2009 Hepatitis B, 20+ yrs 02/16/2023,06/22/19 23,03/10/2022(Defer red: Contraindication),03/10/2022 Pneumococcal Conjugate Vacc, 13 Valent (Prevnar) 12/08/2014 Pneumococcal Conjugate Vacci ne, 20-valent ([id number]) 03/21/2024 Pneumococcal Polysaccharide PPV23 (Pneumovax) 04/24/2006,03/02/1998 RSV [...] 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 Dukes. Pt acknowledged understanding. * Alan Dukes DO - 08/05/2024 12:58 PM EDT BP improved. Continue current medications. documented in this encounter Nursing Notes * Nimo Garcia LPN - 08/05/2024 10:32 AM EDT Anabell Coko is here for nurse BP check. Home BP: 08/01 - 2:30 pm 150/69; 9:30 pm 131/73 08/02 - 9:15 am 195/90; 10:30 am 173/87; 6:45 pm 154/75; 11:00 pm 159/90 08/03 - 8:00 am 181/99; 11:30 am 147/74; 10:00 pm 144/71 08/04 - am 155/63; pm 128/66 08/05 - am 179/87 taken before BP medication Pt reported that all am BP's were taken before she took her BP medications. BP today - 136/66 Per OV note 08/01 it is noted for pt to return in 1 week. [place] BP check in 4 days, which was today. Please advise - do you want to see pt this week? Last 3 BP readings: BP Readings from Last 3 Encounters: 08/01/24 170/82 07/29/24 169/79 07/17/24 134/76 Medications were verified - any concerns are recorded in the Nurse Visit notes. documented in this encounter Plan of Treatment Upcoming Encounters Date Type Department Care Team (Late st Contact Info) Description 08/09/2024 10:15 AM EDT Nurse Only Family Practice [address] [place] [phone] College, Nurse Fam Prac [address] [place] [address] 08/09/2024 10:40 AM EDT Office Visit Family Practice [address] [place] [phone] College, Pharmacist [address] [place] [address] 11/07/2024 10:00 AM EDT Office Visit Family Practice [address] [place] [phone] Alan Dukes, [address] [place] [address] 11/13/2024 10:15 AM EDT Office Visit [facility] [address] [place] [phone] Braulio Holly DO [address] [place] [phone] Scheduled Procedures Name Priority Associated Diagnoses Date/Ti me COLONOSCOPY FLEXIBLE PROXIMAL DIAGNOSTIC Recall History of colon polyps Health Maintenance Due Date Last Done Comments Adult Wellness Visit 2007 *NEPHROLOGY REFERRAL DUE TO RESISTANT HTN 08/03/2024 GFR 09/18/2024 03/21/2024, 05/2023, 02/16/2023, Additional history exists Diabetic Foot Exam 09/19/2024 09/20/2023, 0 10/13/2022, 01/06/2022, Additional history exists CKD HGB USE SMARTSET 08720 11/08/202411/08, 11/09/2023, 08/21/2023, Additional history exists Diabetic Eye Exam 12/06/2024 12/07/2023, , 12/07/2023, Additional history exists HbA1c 01/14/2025 07/17/2024, 02/21, 11/09/2023, Additional history exists Albumin/Creatinine Ratio 02/20/2025 024, 04/06/2023, 02/16/2023, Additional history exists CKD PHOS USE SMARTSET 81729 03/21/202502/21, 02/16/2023, 02/09/2022, Additional history exists Depression Screening 07/17/2025 07/17/2024 DXA Scan 02/20/2031 02/21/2024, 06/2023, 07/14/2014, Additional history exists DTap/Tdap Vaccines (3 - Td or Tdap) 06/22/2033 06/22/2023, 01/07/2013, 09/17/2007, Additional history exists Colonoscopy Discontinued 09/20/2017, 0 06/2017, 05/07/2013, Additional history exists RETIRED - [...] filedocumented as of this encounter Care Teams Slate Trimmer Relationship Specialty Start Date End Date Alan Dukes DO [address] [place] [facility] [place] [address] PCP - General Internal Medicine 11/02/23 documented as of this encounter
--- OUTSIDE RECORDS SUMMARY | 2024-08-24 06:07 | External Medical Summary | Summary of Care ---
Author Name Unknown Organization [facility] Address [address] [facility] [address] Phone [phone] Care Team Providers Care Supply Assistant Name Role Phone Alan Dukes DO Primary Care Provider [phone] Reason for Visit * Reason Comments Dosage Adjustment In Person (Anticoag Cl inic) Diabetes Follow-Up Encounter Details Date Type Department Care Team (Late st Contact Info) Description 08/09/2024 10:40 AM EDT Office Visit Family Practice 65 [facility] [address] [place] [phone] College, Pharmacist [address] [address] Type 2 diabetes mellitus with diabetic peripheral angiopathy without gangrene, with long-term current use of insulin (HCC)* Allergies Active Allergy Reactions Criticality Noted Date Comments Bactroban Rash 03/02/2010 Lisinopril Cough 12/24/2011 Losartan Other (Please comment) 07/20/2022 hyperkalemia Propoxyphene Unknown 12/27/1999 Darvon documented as of this encounter (statuses as of 08/11/2024) Medications LANCET DEVICE MISCIndications :DM type 2, goal A1c below 7 use bid for 250.00 100 5 06/11/19 08 Active skyrockitUCH ULTRA SYSTEM W/DEVICE KITIndications: DM type 2, [...] dinner. Then increase dose as directed by [facility] pharmacist (max 15 units daily) 15 mL 3 5 2:35 PM EDT 05/20/20 24 Active Additional Information Patient taking differently: 12-14 UnitsSubcutaneous BEFORE DINNER, Then increase dose as directed by [facility] pharmacist (max 15 units daily), [...] mcgIndications:Vitamin B 12 deficiency 1000 mcg IM [id number] 06/19/2024 05/21/2025 Active documented as of this encounter (statuses as of 08/11/2024) Active Problems Problem Noted Date Diagnosed Date [...] as of this encounter (statuses as of 08/11/2024) Resolved Problems Problem Noted Date Diagnosed Date [...] as of this encounter (statuses as of 08/11/2024) Immunizations Name Administration Dates Next Due COVID-19 mRNA, LNP-s, No Pre serve, 2-Dose Series (Geekangels) 04/27/2021,08/08/2020,07/18/2020 COVID-19, LNP-s, No Preserve , Tian-sucrose, Ages 12+ (Pfizer) 10/12/2021 H1N1 2009 Influenza, IM 06/08/2009 Hepatitis B, 20+ yrs 02/16/2023,06/22/19 23,03/10/2022(Defer red: Contraindication),03/10/2022 Pneumococcal Conjugate Vacc, 13 Valent (Prevnar) 12/08/2014 Pneumococcal Conjugate Vacci ne, 20-valent ([id number]) 03/21/2024 Pneumococcal Polysaccharide PPV23 (Pneumovax) 04/24/2006 RSV [...] 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 Patient presents for return diabetic visit. DIABETES: Current diabetic medications: Increase Xultophy 30 units daily AM Increase Novolog 12 units before supper at home (skip if no meal), 14 units if out to eat/takeout Medication Injection Site: Abdomen Lifestyle: Diet: unchanged Glucose Review/SMBG: Readings obtained from patient documented BG logbook Pre am HS 140 158 116 152 108 211 146 143 117 259 239 361 233 237 144 185 311 137 193 155 130 nosebleed 174 106 89 90 87 126 hospital 238 105 102 72 161 95 150 91 potato 205 108 76 102 Pre AM meal Bedtime Average 136 176 High 311 361 Low 72 76 Range 239 285 Count 20 19 Hypoglycemia: Does your blood sugar go below 70 mg/dL? No Hyperglycemia symptoms present: none Recent Labs Units 07/17/24 1517 03/21/24 1117 11/09/23 0952 HEMOGLOBIN A1C - [facility] % 7.8* 7.4* 6.7* Recent Labs Units 03/21/24 1117 08/21/23 1338 02/16/23 1057 ESTIMATED GLOMERULAR FILTRATION RATE - [facility] mL/min 54* 58* 59* CREATININE - [facility] mg/dL 1.0 1.0 1.0 HYPERTENSION: Patient on ACEi/ARB: no, cough to thomas, hyperkalemia to ARB BP Readings from Last 3 Encounters: 08/09/24 144/78 08/05/24 136/66 08/01/24 170/82 Blood pressure at goal: No Current regimen: Atenolol 100mg daily HS HCTZ 25 mg daily AM (newly started) Amlodipine 10mg daily AM (newly increased) Blood Pressure Goal: <140/90 mmHg No results for input(s): "MICROALBUMIN" in the last 31812 hours. Recent Labs Units 03/21/24 1117 08/21/23 1338 02/16/23 1057 POTASSIUM - [facility] mmol/L 5.0 4.6 4.6 HYPERLIPIDEMIA: Recent Labs Units 07/17/24 1517 02/16/23 1057 LDL CHOLESTEROL (CALCULATED) - [facility] mg/dL 57 68 Does patient have clinical ASCVD? No, is patient LDL less than 70mg/dL? Yes HEALTH MAINTENANCE REVIEW: Health Maintenance Due Topic Date Due Adult Wellness Visit Never done ASSESSMENT & PLAN: ICD-10-CM 1. Type 2 diabetes mellitus with diabetic peripheral angiopathy without gangrene, with long-term current use of insulin ([facility]) E11.51 Z79.4 BG Readings - Blood sugars variable. BGs were very high for a week, now patient having lows. She isn't sure what changed, though was sick/having nosebleeds during elevated glucose period. Medications - Reviewed current regimen, patient is adherent to regimen. Will continue current regimen as sugars are not controlled. Will decrease insulin if lows continue. Diet, Exercise, Lifestyle - No significant lifestyle changes since last visit. Discussed with patient. Patient is agreeable to SMBG 2 time(s) daily. Patient aware to contact clinic if any hypoglycemia before next visit. MEDICATION CHANGES: no change Diabetic Medications: Xultophy 30 units daily AM Novolog 12 units before supper at home (skip if no meal), 14 units if out to eat/takeout HEALTH MAINTENANCE INTERVENTIONS: Labs: Up to Date Immunizations: Up to Date Foot Exam: Up to Date Eye Exam: Up to Date Annual Wellness Visit: N/A FOLLOW UP: Return to clinic in 4 weeks with B12 shot 11/07/2024 I spent a total of 20-29 minutes (exact time 22 mins) on the date of service in preparation, delivery, and documentation of the care provided to Anabell Cook excluding any time spent in the performance of separately billed services. Abiola Santoro [facility] Clinical Pharmacist - Beauty Therapist Medication Therapy Management Clinic 08/09/2024, 10:32 AM documented in this encounter Plan of Treatment Upcoming Encounters Date Type Department Care Team (Late st Contact Info) Description 09/16/2024 10:00 AM EDT Nurse Only Family Practice 65 [facility] 293 [place] [phone] [place], Nurse Fam Prac [address] [place] [address] 10/17/2024 10:00 AM EDT Nurse Only Family Practice 65 [facility] [address] [place] [phone] [place], Nurse Fam Prac [address] [place] [address] 11/07/2024 10:00 AM EDT Office Visit Family Practice 65 [facility] [address] [place] [phone] Alan Dukes, [address] [place] [address] 11/13/2024 10:15 AM EDT Office Visit Orthopaedics [facility] [address] [place] [address] Braulio Holly, DO [address] [place] [phone] Scheduled Procedures Name Priority Associated Diagnoses Date/Ti me COLONOSCOPY FLEXIBLE PROXIMAL DIAGNOSTIC Recall History of colon polyps Health Maintenance Due Date Last Done Comments Adult Wellness Visit 2007 *NEPHROLOGY REFERRAL DUE TO RESISTANT HTN 08/11/2024 GFR 09/18/2024 03/21/2024, 05/2023, 02/16/2023, Additional history exists Diabetic Foot Exam 09/19/2024 09/20/2023, 0 10/13/2022, 01/06/2022, Additional history exists CKD HGB USE SMARTSET 68061 11/08/202411/08, 11/09/2023, 08/21/2023, Additional history exists Diabetic Eye Exam 12/06/2024 12/07/2023, , 12/07/2023, Additional history exists HbA1c 01/14/2025 07/17/2024, 02/21, 11/09/2023, Additional history exists Albumin/Creatinine Ratio 02/20/2025 024, 04/06/2023, 02/16/2023, Additional history exists CKD PHOS USE SMARTSET 00913 03/21/202502/21, 02/16/2023, 02/09/2022, Additional history exists Depression [...] Diagnoses Diagnosis Type 2 diabetes mellitus with diabetic peripheral angiopathy without gangrene, with long-term current use of insulin (HCC)- Primary documented in this encounter Care Teams Supply Assistant Relationship Specialty Start Date End Date Alan Dukes DO [address] [place] [address] PCP - General Internal Medicine 11/02/23 documented as of this encounter
--- OUTSIDE RECORDS SUMMARY | 2024-08-24 06:07 | External Medical Summary | Summary of Care ---
Author Name Unknown Organization [facility] Address [address] [facility] [address] Phone [phone] Care Team Providers Care Is Project Manager Name Role Phone Alan Dukes DO Primary Care Provider [phone] Reason for Visit * Reason Comments Nurse Documentation [place] for BP check. Encounter Details Date Type Department Care Team (Late st Contact Info) Description 08/05/2024 10:00 AM EDT Nurse Only Family Practice [address] [phone] College, Nurse [facility] Prac [address] [address] Nurse Documentation ([place] for BP check. ) Allergies Active Allergy Reactions Criticality Noted Date Comments Bactroban Rash 03/02/2010 Lisinopril Cough 12/24/2011 Losartan Other (Please comment) 07/20/2022 hyperkalemia Propoxyphene Unknown 12/27/1999 Darvon documented as of this encounter (statuses as of 08/05/2024) Medications LANCET DEVICE MISCIndications :DM type 2, [...] dinner. Then increase dose as directed by [facility] pharmacist (max 15 units daily) 15 mL 3 5 2:35 PM EDT 05/20/20 24 Active Additional Information Patient taking differently: 12-14 UnitsSubcutaneous BEFORE DINNER, Then increase dose as directed by [facility] pharmacist (max 15 units daily), Reported on [...] mcgIndications:Vitamin B 12 deficiency 1000 mcg IM [id number] 06/19/2024 05/21/2025 Active documented as of this encounter (statuses as of 08/05/2024) Active Problems Problem Noted Date Diagnosed Date [...] as of this encounter (statuses as of 08/05/2024) Resolved Problems Problem Noted Date Diagnosed Date [...] as of this encounter (statuses as of 08/05/2024) Immunizations Name Administration Dates Next Due COVID-19 mRNA, LNP-s, No Pre serve, 2-Dose Series (Xeneta) 04/27/2021,08/08/2020,07/18/2020 COVID-19, LNP-s, No Preserve , Tian-sucrose, Ages 12+ (Pfizer) 10/12/2021 H1N1 2009 Influenza, IM 06/08/2009 Hepatitis B, 20+ yrs 02/16/2023,06/22/19 23,03/10/2022(Defer red: Contraindication),03/10/2022 Pneumococcal Conjugate Vacc, 13 Valent (Prevnar) 12/08/2014 Pneumococcal Conjugate Vacci ne, 20-valent ([id number]) 03/21/2024 Pneumococcal Polysaccharide PPV23 (Pneumovax) 04/24/2006 RSV [...] 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 Continue current medications. documented in this encounter Nursing Notes * Nimo Garcia LPN - 08/05/2024 10:32 AM EDT Anabell Cook is here for nurse BP check. Home [...] AM EDT Nurse Only Family Practice 65 [facility] [address] [place] [phone] College, Nurse Fam Prac [address] [address] 08/09/2024 10:40 AM EDT Office Visit Family Practice 65 [facility] [address] [place] [phone] College, Pharmacist [address] [address] 11/07/2024 10:00 AM EDT Office Visit Family Practice 65 [facility] [address] [place] [phone] Alan Dukes, DO [address] [place] [address] 11/13/2024 10:15 AM EDT Office Visit Orthopaedics [facility] [address] [place] [address] Braulio Holly, [address] [place] [...] Additional history exists CKD HGB USE SMARTSET 32299 11/08/202411/08, 11/09/2023, 08/21/2023, Additional history exists Diabetic Eye Exam 12/06/2024 12/07/2023, , 12/07/2023, Additional history exists HbA1c 01/14/2025 07/17/2024, 02/21, 11/09/2023, Additional history exists Albumin/Creatinine Ratio 02/20/2025 024, 04/06/2023, 02/16/2023, Additional history exists CKD PHOS USE SMARTSET 44746 03/21/202502/21, 02/16/2023, 02/09/2022, Additional history exists Depression [...] filedocumented as of this encounter Care Teams Is Project Manager Relationship Specialty Start Date End Date Alan Dukes DO [address] [place] [address] PCP - General Internal Medicine 11/02/23 documented as of this encounter
--- OUTSIDE RECORDS SUMMARY | 2024-08-24 06:07 | External Medical Summary | Summary of Care ---
Author Name Unknown Organization [facility] Address [address] [place] [address] Phone [phone] Care Team Providers Care Scene And Lighting Design Lecturer Name Role Phone Alan Dukes DO Primary Care Provider [phone] Encounter Details Date Type Department Care Team (Late st Contact Info) Description 08/09/2024 10:15 AM EDT Nurse Only Family Practice [address] [address] College, Nurse [facility] Prac [address] [address] Allergies Active Allergy Reactions Criticality Noted Date Comments Bactroban Rash 03/02/2010 Lisinopril Cough 12/24/2011 Losartan Other (Please comment) 07/20/2022 hyperkalemia Propoxyphene Unknown 12/27/1999 Darvon documented as of this encounter (statuses as of 08/13/2024) Medications LANCET DEVICE MISCIndications :DM type 2, [...] Tablet 3 5 12:28 PM EST 02/16/20 Active Gabapentin 300 MG Oral Capsule (Neurontin)Kalina [...] Then increase dose as directed by [facility] pharmacist (max 15 units daily) 15 mL 3 5 2:35 PM EDT 05/20/20 24 Active Additional Information Patient taking differently: 12-14 UnitsSubcutaneous BEFORE DINNER, Then increase dose as directed by [facility] pharmacist (max 15 units daily), Reported on [...] morning. 100 Tablet 3 08/13/19 25 Active hydroCHLOROthia zide 25 MG Oral Tablet (Hydrodiuril)In dications:Type 2 diabetes 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 hypertension (HCC) Take 1 Tablet by mouth in the morning. 30 Tablet 1 08/02/19 25 03/21/ 2025 Disconti nued(Ref ill) Hospital, Clinic, or Other Facility Administered Medication Ordered Dose Route Frequency Start Date End Date Status Vitamin B-12 (Cyanocobalamin) inj 1,000 mcgIndications:Vitamin B 12 deficiency 1000 mcg IM [id number] 06/19/2024 05/21/2025 Active documented as of this encounter (statuses as of 08/13/2024) Active Problems Problem Noted Date Diagnosed Date [...] as of this encounter (statuses as of 08/13/2024) Resolved Problems Problem Noted Date Diagnosed Date [...] HYPERTENSION NOS 04/14/2009 Overview (04/14/2009): Modified per [facility] protocol #16. Other psoriasis 08/01/2024 documented as of this encounter (statuses as of 08/13/2024) Immunizations Name Administration Dates Next Due COVID-19 mRNA, LNP-s, No Pre serve, 2-Dose Series (Tappit) 04/27/2021,08/08/2020,07/18/2020 COVID-19, LNP-s, No Preserve , Tian-sucrose, Ages 12+ (Pfizer) 10/12/2021 H1N1 2009 Influenza, IM 06/08/2009 Hepatitis B, 20+ yrs 02/16/2023,06/22/19 23,03/10/2022(Defer red: Contraindication),03/10/2022 Pneumococcal Conjugate Vacc, 13 Valent (Prevnar) 12/08/2014 Pneumococcal Conjugate Vacci ne, 20-valent ([id number]) 03/21/2024 Pneumococcal Polysaccharide PPV23 (Pneumovax) 04/24/2006 RSV [...] money to buy more. 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 Relayed information from Dr. Dukes. Pt acknowledged understanding. Lab order pended. * Nimo Garcia LPN - 08/12/2024 11:30 AM EDT Call placed to patient - no answer. Message left to return call to [phone]. Lab order pended. * Alan Dukes DO - 08/12/2024 7:50 AM EDT Patient should continue HCTZ. Check BMP in 1 week. HCTZ sent to mail order. * Aliza Alvarenga LPN - 08/09/2024 10:27 AM EDT Patient questions if she should continue with hctz? If so, she will need a script please documented in this encounter Plan of Treatment Upcoming Encounters Date Type Department Care Team (Late st Contact Info) Description 08/14/2024 9:00 AM EDT Office Visit Family Practice 65 [facility] [address] [place] [address] Alan Dukes, [address] [place] [address] 09/16/2024 10:00 AM EDT Nurse Only Family Practice 65 [facility] [address] [place] [address] College, Nurse Fam Prac [address] [place] [address] 10/17/2024 10:00 AM EDT Nurse Only Family Practice 65 [facility] [address] [place] [address] [place], Nurse Fam Prac [address] [place] [address] 11/07/2024 10:00 AM EDT Office Visit Family Practice 65 [facility] [address] [place] [address] Alan Dukes, [address] [place] [address] 11/13/2024 10:15 AM EDT Office Visit Orthopaedics [facility] [address] [place] [address] Braulio Holly, [address] [place] [address] Scheduled Orders Name Type Priority Associated Diagnoses Orde r Schedule BASIC METABOLIC PANEL Lab Routine HTN, goal below 140/90 Expected: 08/19/2024 (Approximate), Expires: 08/12/2025 Scheduled Procedures Name Priority Associated Diagnoses Date/Ti me COLONOSCOPY FLEXIBLE PROXIMAL DIAGNOSTIC Recall History of colon polyps Health Maintenance Due Date Last Done Comments Adult Wellness Visit 2007 *NEPHROLOGY REFERRAL DUE TO RESISTANT HTN 08/11/2024 GFR 09/18/2024 03/21/2024, 05/2023, 02/16/2023, Additional history exists Diabetic Foot Exam 09/19/2024 09/20/2023, 0 10/13/2022, 01/06/2022, Additional history exists CKD HGB USE SMARTSET 16471 11/08/202411/08, 11/09/2023, 08/21/2023, Additional history exists Diabetic Eye Exam 12/06/2024 12/07/2023, , 12/07/2023, Additional history exists HbA1c 01/14/2025 07/17/2024, 02/21, 11/09/2023, Additional history exists Albumin/Creatinine Ratio 02/20/2025 024, 04/06/2023, 02/16/2023, Additional history exists CKD PHOS USE SMARTSET 58779 03/21/202502/21, 02/16/2023, 02/09/2022, Additional history exists Depression [...] as of this encounter Visit Diagnoses Diagnosis Vitamin B 12 deficiency- Primary Other B-complex deficiencies Type 2 diabetes 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 hypertension (HCC) HTN, goal below 140/90 Unspecified essential hypertension documented in this encounter Administered Medications Active Administered Medications - up to 3 most recent administrations Medication Order MAR Action Action Date Dose Rate Site Vitamin B-12 (Cyanocobalamin) inj 1,000 mcg 1,000 mcg, Intramuscular, [id number], First dose on Mon06/19/24 at 1345, Last dose on Mon04/23/25 at 1345, For 12 dosesIndications:Vitamin B 12 deficiency Given 08/09/2024 3:00 PM EDT 1,000 mcg Arm Left Upper Given 07/17/2024 4:38 PM EST 1,000 mcg Ar m Left Upper Given 06/19/2024 1:15 PM EST 1,000 mcg De ltoid Right Upper documented in this encounter Care Teams Scene And Lighting Design Lecturer Relationship Specialty Start Date End Date Alan Dukes DO [address] [place] [address] PCP - General Internal Medicine 11/02/23 documented as of this encounter
--- OUTSIDE RECORDS SUMMARY | 2024-08-24 06:07 | External Medical Summary | Summary of Care ---
Author Name Unknown Organization [facility] Address [address] [facility] [place] [address] Phone [phone] Care Team Providers Care Crematorium Operator Name Role Phone Alan Dukes DO Primary Care Provider [phone] Reason for Visit * Reason Comments Emergency Department Follow-Up Encounter Details Date Type Department Care Team (Late st Contact Info) Description 08/01/2024 10:00 AM EDT Office Visit Family Practice 65 [facility] [address] [place] [address] Alan Dukes DO [address] [place] [address] Type 2 diabetes 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 hypertension (HCC)*; DYSLIPIDEMIA, GOAL LDL BELOW 100; JD (generalized anxiety disorder); Gastroesophageal reflux disease without esophagitis; Psoriasis; Pernicious anemia; Restless leg syndrome; Risk and functional assessment; Paroxysmal atrial tachycardia (HCC) Allergies Active Allergy Reactions Criticality Noted Date Comments Bactroban Rash 03/02/2010 Lisinopril Cough 12/24/2011 Losartan Other (Please comment) 07/20/2022 hyperkalemia Propoxyphene Unknown 12/27/1999 Darvon documented as of this encounter (statuses as of 08/01/2024) Medications LANCET DEVICE MISCIndications :DM type 2, goal A1c below 7 use bid for 250.00 100 5 06/11/19 08 Active Cardica SYSTEM W/DEVICE KITIndications: DM type 2, goal A1c below 7 Use up to four times a day as directed 1 Kit 0 04/19/20 11 Active OSTEO BI-FLEX ADV TRIPLE ST PO TABS Take 1 Tab by mouth 2 times a day. Active ASPIRIN EC 81 MG PO TBECIndications :HTN, goal below 140/80 1 TABLET DAILY 99 Tab 99 11/02/19 14 Active Additional Information Patient not taking.Reported on 08/01/2024 Turmeric 500 MG Oral Capsule Take 1 [...] BEDTIME 200 Tablet 3 08/12/19 24 Active KAI SquareTouch Ultra In Vitro Strip (Glucose Blood)Indicatio ns:Type [...] 1 Capsule before bedtime. 300 Capsule 1 4 11:39 AM EST 02/28/20 24 Active Simvastatin 20 MG Oral [...] Then increase dose as directed by [facility] pharmacist (max 15 units daily) 15 mL 3 5 2:35 PM EDT 05/20/20 24 Active Additional Information Patient taking differently: 12-14 UnitsSubcutaneous BEFORE DINNER, Then increase dose as directed by [facility] pharmacist (max 15 units daily), Reported on 08/01/2024 Xultophy 100-3.6 UNIT-MG/ML Subcutaneous Solution Pen-injector (Insulin Degludec-Liragl utide)Indicatio ns:Type 2 diabetes 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 hypertension (HCC) Inject 28 Units under the skin daily. 30 mL 1 5 7:08 AM EST 06/26/19 25 Active Additional Information Patient taking differently: 30 UnitsSubcutaneous Daily(Non-Specified), Reported on 08/01/2024 ALPRAZolam 0.25 MG Oral Tablet (xaNAX)Indicati ons:Anxiety [...] mcgIndications:Vitamin B 12 deficiency 1000 mcg IM [id number] 06/19/2024 05/21/2025 Active documented as of this encounter (statuses as of 08/01/2024) Active Problems Problem Noted Date Diagnosed Date [...] as of this encounter (statuses as of 08/01/2024) Resolved Problems Problem Noted Date Diagnosed Date [...] as of this encounter (statuses as of 08/01/2024) Immunizations Name Administration Dates Next Due COVID-19 mRNA, LNP-s, No Pre serve, 2-Dose Series (Art-Exchange) 04/27/2021,08/08/2020,07/18/2020 COVID-19, LNP-s, No Preserve , Tian-sucrose, Ages 12+ (Pfizer) 10/12/2021 H1N1 2009 Influenza, IM 06/08/2009 Hepatitis B, 20+ yrs 02/16/2023,06/22/19 23,03/10/2022(Defer red: Contraindication),03/10/2022 Pneumococcal Conjugate Vacc, 13 Valent (Prevnar) 12/08/2014 Pneumococcal Conjugate Vacci ne, 20-valent ([id number]) 03/21/2024 Pneumococcal Polysaccharide PPV23 (Pneumovax) 04/24/2006 RSV [...] 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 Not on file Not on file documented as of this encounter Last Filed Vital Signs Vital Sign Reading Time Taken Comments Blood Pressure 170/82 08/01/2024 10:01 AM EDT Pulse 68 08/01/2024 10:01 AM EDT Temperature 35.9 °C (96.7 °F) 08/01/2024 1 0:01 AM EDT Respiratory Rate - - Oxygen Saturation 100% 08/01/2024 10: 01 AM EDT Inhaled Oxygen Concentration - - Weight 77.9 kg (171 lb 12.8 oz) 025 10:01 AM EDT Height 157.5 cm (5' 2") 08/01/2024 10:0 1 AM EDT Body Mass Index 31.42 08/01/2024 10:01 AM EDT documented in this encounter Patient Instructions * Patient Instructions* Madelyn Jose LPN - 08/01/2024 9:57 AM EDT Urinary Incontinence Plan of Care Documentation: (This [...] Wear support stockings (TEDs)if you have edema Madelyn Jose LPN 08/01/2024 Kegel Exercises Kegel exercises don’t require special [...] encounter Progress Notes * Alan Dukes, - 08/01/2024 11:26 AM EDT SUBJECTIVE: Anabell Cook is a 84 year old female. Chief Complaint Patient presents with Emergency Department Follow-Up HPI: Patient is an 84 year old female with a history of DM type II, CKD stage III, Hyperlipidemia, GERD,B-12 Deficiency Anemia, Psoriasis, and Restless Leg that is seen for elevated blood pressure. The patient was seen in the ED at [facility] on 07/25/2024 due to nose bleed and elevated blood pressure. She returned to the ED on 07/27/2024 for elevated blood pressure. Amlodipine was doubled. BP is still elevated. No further nose bleeds. No chest pain or shortness of breath are present. Weight is stable and appetite is good. Psoriasis is controlled. No falls. Patient Active Problem List Diagnosis GENERAL OSTEOARTHROSIS [...] with diabetic peripheral angiopathy without gangrene (HCC) Psoriasis Current Outpatient Medications Medication Sig Dispense Refill OSTEO BI-FLEX ADV TRIPLE ST PO TABS Take 1 Tab by mouth 2 times a day. Turmeric 500 MG Oral Capsule Take 1 Capsule by mouth in the morning. Centrum Silver 50+Women Oral Tablet Take 1 Tablet by mouth in the morning. Metamucil 28.3 % Oral Powder (Psyllium) Dissolve in water and drink daily Amitriptyline HCl 10 MG Oral Tablet (Elavil) TAKE TWO TABLETS BY MOUTH AT BEDTIME 200 Tablet 3 Atenolol 100 MG Oral Tablet (Tenormin) Take 1 Tablet by mouth at bedtime. 100 Tablet 3 Gabapentin 300 MG Oral Capsule (Neurontin) Take 1 Capsule by mouth in the morning and 1 Capsule at noon and 1 Capsule before bedtime. 300 Capsule 1 Simvastatin 20 MG Oral Tablet (Zocor) TAKE ONE TABLET BY MOUTH AT BEDTIME 100 Tablet 1 NovoLOG FlexPen 100 UNIT/ML Subcutaneous Solution Pen-injector (insulin aspart) Inject 9-11 Units under the skin daily before dinner. Then increase dose as directed by [facility] pharmacist (max 15 units daily) (Patient taking differently: Inject 12-14 Units under the skin daily before dinner. Then increase dose as directed by [facility] pharmacist (max 15 units daily)) 15 mL 3 Xultophy 100-3.6 UNIT-MG/ML Subcutaneous Solution Pen-injector (Insulin Degludec-Liraglutide) Inject 28 Units under the skin daily. (Patient taking differently: Inject 30 Units under the skin daily.)30 mL 1 ALPRAZolam 0.25 MG Oral Tablet (xaNAX) TAKE 1 TABLET BY MOUTH 3 TIMES A DAY NEEDED FOR ANXIETY 90 Tablet 0 Amjevita 40 MG/0.4ML Subcutaneous Solution Auto-injector (Adalimumab-atto) Inject 1 pen under the skin every 2 weeks 0.8 mL 5 Omeprazole 20 MG Oral Capsule Delayed Release (PriLOSEC) TAKE ONE CAPSULE BY MOUTH EVERY DAY ONE HOUR BEFORE THE FIRST MEAL OF THE DAY 100 Capsule 2 amLODIPine Besylate 10 MG Oral Tablet (Norvasc) Take 1 Tablet by mouth in the morning. 100 Tablet 3 hydroCHLOROthiazide 25 MG Oral Tablet (Hydrodiuril) Take 1 Tablet by mouth in the morning. 30 Tablet 1 LANCET DEVICE MISC use bid for 250.00 100 5 Cardica SYSTEM W/DEVICE KIT Use up to four times a day as directed 1 Kit 0 ASPIRIN EC 81 MG PO TBEC 1 TABLET DAILY (Patient not taking: Reported on 08/01/2024) 99 Tab 99 OneTouch Ultra In Vitro Strip (Glucose Blood) USE TO TEST BLOOD SUGAR 3 TIMES DAILY 300 Strip 3 Unifine Pentips 31G X 8 MM (Insulin Pen Needle) Use to inject Xultophy daily 100 Each 3 Current Facility-Administered Medications Medication Dose Route Frequency Provider Last Rate Last Admin Vitamin B-12 (Cyanocobalamin) inj 1,000 mcg 1,000 mcg Intramuscular Q4 Weeks 1,000 mcg at 07/17/24 1638 The patient's medication list was reviewed and updated as needed. Past Medical History: Diagnosis Date Asymptomatic bilateral carotid artery stenosis 02/09/2022 Chest pain 1995 [facility] [facility] 1995 Cystitis 07/05/2022 >100,000 pansensitive Klebsiella DM [...] by Meg Isbell DO at ENDOSCOPY [facility] COLONOSCOPY, DIAGNOSTIC (RECTUM) 09/20/2017 diverticulosis, repeat 5 yrs/COLONOSCOPY FLEXIBLE PROXIMAL DIAGNOSTIC performed by Tez Barragan MD at ENDOSCOPY [facility] EGD, FLEXIBLE, W/BIOPSY 05/20/08 chronic gastritis, inflammatory polyps LIGATE/DIVIDE & STRIP GSV/LSV 1985 Varicose Vein Stripping and Ligation MAMMOGRAM BREAST NEEDLE BIOPSY CORE LEFT Left 01/13/2015 Final pathology demonstrates benign fatty atrophy right breast tissue with 3 mm fibroadenoma containing REMOVE GALLBLADDER 1969 [facility] Review of patient's allergies indicates: Allergen Reactions Bactroban Rash Lisinopril Cough Losartan Other (Please comment) hyperkalemia Propoxyphene Unknown Darvon Review of Systems Constitutional: Negative for appetite change, fatigue and unexpected weight change. HENT: Negative for congestion, sore throat and trouble swallowing. Respiratory: Negative for cough, shortness of breath and wheezing. Cardiovascular: Negative for chest pain, palpitations and leg swelling. Gastrointestinal: Negative for abdominal pain, blood in stool, constipation, diarrhea, nausea and vomiting. Genitourinary: Negative for dysuria, frequency and hematuria. Neurological: Positive for headaches. Negative for dizziness and syncope. Psychiatric/Behavioral: Negative for confusion, decreased concentration and sleep disturbance. OBJECTIVE: BP 170/82 | Pulse 68 | Temp 96.7 °F (35.9 °C) (Tympanic) | Ht 5' 2" (1.575 m) | Wt 171 lb 12.8 oz(77.9 kg) | SpO2 100% | BMI 31.42 kg/m² | BSA 1.85 m² Physical Exam Vitals and nursing note [...] soft. Tenderness: There is no abdominal tenderness. Neurological: Mental Status: She is alert. PLAN AND ASSESSMENT: Type 2 diabetes 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 hypertension (HCC) (Primary) - Start hydroCHLOROthiazide 25 MG Oral Tablet (Hydrodiuril); Take 1 Tablet by mouth in the morning. Continue Xultophy, Novolog DYSLIPIDEMIA, GOAL LDL BELOW 100 Continue Simvastatin JD (generalized anxiety disorder) Continue Alprazolam Gastroesophageal reflux disease without esophagitis Continue Omeprazole Psoriasis Pernicious anemia Continue B 12 Restless leg syndrome Continue Amitriptyline Risk and functional assessment Paroxysmal atrial tachycardia (HCC) Follow-up: Return in about 1 week (around 08/08/2024), or if symptoms worsen or fail to improve. | Check-out note: BP check nurse clinic in 4 days Alan Dukes DO 11:27 AM 08/01/2024 documented in this encounter Plan of Treatment Upcoming Encounters Date Type Department Care Team (Late st Contact Info) Description 08/05/2024 10:00 AM EDT Nurse Only Family Practice 65 [facility] [address] [place] [address] College, Nurse Fam Prac [address] [place] [address] 08/09/2024 10:15 AM EDT Nurse Only Family Practice 65 [facility] [address] [place] [address] College, Nurse Fam Prac [address] [place] [address] 08/09/2024 10:40 AM EDT Office Visit Family Practice 65 [facility] [address] [place] [address] College, Pharmacist [address] [place] [address] 11/07/2024 10:00 AM EDT Office Visit Family Practice 65 [facility] [address] [place] [address] Alan Dukes, DO [address] [place] [address] 11/13/2024 10:15 AM EDT Office Visit Orthopaedics [facility] [address] [place] [phone] Braulio Holly, DO [address] [place] [phone] Scheduled Procedures Name Priority Associated Diagnoses Date/Ti me COLONOSCOPY FLEXIBLE PROXIMAL DIAGNOSTIC Recall History of colon polyps Health Maintenance Due Date Last Done Comments Adult Wellness Visit 2007 GFR 09/18/2024 03/21/2024, 04/0 05/2023, 02/16/2023, Additional history exists Diabetic Foot Exam 09/19/2024 09/20/2023, 0 10/13/2022, 01/06/2022, Additional history exists CKD HGB USE SMARTSET 42855 11/08/202411/08, 11/09/2023, 08/21/2023, Additional history exists Diabetic Eye Exam 12/06/2024 12/07/2023, , 12/07/2023, Additional history exists HbA1c 01/14/2025 07/17/2024, 02/21, 11/09/2023, Additional history exists Albumin/Creatinine Ratio 02/20/2025 024, 04/06/2023, 02/16/2023, Additional history exists CKD PHOS USE SMARTSET 02383 03/21/202502/21, 02/16/2023, 02/09/2022, Additional history exists Depression [...] LDL BELOW 100 Other and unspecified hyperlipidemia JD (generalized anxiety disorder) Generalized anxiety disorder Gastroesophageal reflux disease without esophagitis Esophageal reflux Psoriasis Other psoriasis Pernicious anemia Restless leg syndrome Restless legs syndrome (RLS) Risk and functional assessment Screening for unspecified condition Paroxysmal atrial tachycardia (HCC) Paroxysmal supraventricular tachycardia documented in this encounter Care Teams Crematorium Operator Relationship Specialty Start Date End Date Alan Dukes DO [address] [place] [facility] [place] [address] PCP - General Internal Medicine 11/02/23 documented as of this encounter
--- OUTSIDE RECORDS SUMMARY | 2024-08-24 06:07 | External Medical Summary | Summary of Care ---
Author Name Unknown Organization [facility] Address [address] [place] [address] Phone [phone] Care Team Providers Care Molten Iron Pourer Name Role Phone Alan Dukes DO Primary Care Provider [phone] Reason for Visit * Reason Onset Date Comments Information 08/08/202408/08 Encounter Details Date Type Department Care Team (Late st Contact Info) Description 08/08/2024 Telephone Family Practice 65 [facility] [address] [place] [address] Alan Dukes DO 293 [place] [address] Information (08/08) Allergies Active Allergy Reactions Criticality Noted Date Comments Bactroban Rash 03/02/2010 Lisinopril Cough 12/24/2011 Losartan Other (Please comment) 07/20/2022 hyperkalemia Propoxyphene Unknown 12/27/1999 Darvon documented as of this encounter (statuses as of 08/09/2024) Medications LANCET DEVICE MISCIndications :DM type 2, [...] dinner. Then increase dose as directed by [facility] pharmacist (max 15 units daily) 15 mL 3 5 2:35 PM EDT 05/20/20 24 Active Additional Information Patient taking differently: 12-14 UnitsSubcutaneous BEFORE DINNER, Then increase dose as directed by [facility] pharmacist (max 15 units daily), [...] mcgIndications:Vitamin B 12 deficiency 1000 mcg IM [id number] 06/19/2024 05/21/2025 Active documented as of this encounter (statuses as of 08/09/2024) Active Problems Problem Noted Date Diagnosed Date [...] as of this encounter (statuses as of 08/09/2024) Resolved Problems Problem Noted Date Diagnosed Date [...] as of this encounter (statuses as of 08/09/2024) Immunizations Name Administration Dates Next Due COVID-19 mRNA, LNP-s, No Pre serve, 2-Dose Series ([employer]) 04/27/2021,08/08/2020,07/18/2020 COVID-19, LNP-s, No Preserve , Tian-sucrose, Ages 12+ (Pfizer) 10/12/2021 H1N1 2009 Influenza, IM 06/08/2009 Hepatitis B, 20+ yrs 02/16/2023,06/22/19 23,03/10/2022(Defer red: Contraindication),03/10/2022 Pneumococcal Conjugate Vacc, 13 Valent (Prevnar) 12/08/2014 Pneumococcal Conjugate Vacci ne, 20-valent ([id number]) 03/21/2024 Pneumococcal Polysaccharide PPV23 (Pneumovax) 04/24/2006 RSV [...] 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 Asked if dry skin could be the cause. Advised to try hydrocortisone cream over the counter Today bp 143/68 Will let us know how rash is over the weekend. * Telephone Encounter - Julita Elmore RT (R) - 08/08/2024 3:24 PM EDT Patient returned call regarding her BP and stated her BP this morning was 136/70. States she sometimes has a "fuzzy" feeling in her head when moving around. Does not happen when she is sitting. Patient was also asking if her medication could be causing her to itch. * Telephone Encounter - Aliza Alvarenga LPN - 08/08/2024 1:19 PM EDT Attempted to call patient, there was no answer, left voicemail. When patient returns call, ok for SCOTT to relay message, please refer to below documentation. If needed, can transfer to dedicated nurse line. How is patients bp? How is she feeling? Thank you * Telephone Encounter - Alan Dukes DO - 08/08/2024 12:57 PM EDT See how patient's blood pressure is today. documented in this encounter Plan of Treatment Upcoming Encounters Date Type Department Care Team (Late st Contact Info) Description 08/09/2024 10:15 AM EDT Nurse Only Family Practice [address] [place] [phone] College, Nurse Fam Prac [address] [place] [address] 08/09/2024 10:40 AM EDT Office Visit Family Practice 65 [facility] 293 [place] [address] College, Pharmacist [address] [place] [address] 11/07/2024 10:00 AM EDT Office Visit Family Practice 65 [facility] 293 [place] [address] Alan Dukes DO 293 [place] [address] 11/13/2024 10:15 AM EDT Office Visit Orthopaedics [facility] [address] [place] [phone] Braulio Holly, [address] [place] [phone] Scheduled Procedures Name Priority Associated Diagnoses Date/Ti me COLONOSCOPY FLEXIBLE PROXIMAL DIAGNOSTIC Recall History of colon polyps Health Maintenance Due Date Last Done Comments Adult Wellness Visit 2007 GFR 09/18/2024 03/21/2024, 05/2023, 02/16/2023, Additional history exists Diabetic Foot Exam 09/19/2024 09/20/2023, 0 10/13/2022, 01/06/2022, Additional history exists CKD HGB USE SMARTSET 65924 11/08/202411/08, 11/09/2023, 08/21/2023, Additional history exists Diabetic Eye Exam 12/06/2024 12/07/2023, , 12/07/2023, Additional history exists HbA1c 01/14/2025 07/17/2024, 02/21, 11/09/2023, Additional history exists Albumin/Creatinine Ratio 02/20/2025 024, 04/06/2023, 02/16/2023, Additional history exists CKD PHOS USE SMARTSET 39558 03/21/202502/21, 02/16/2023, 02/09/2022, Additional history exists Depression [...] filedocumented as of this encounter Care Teams Molten Iron Pourer Relationship Specialty Start Date End Date Alan Dukes DO [address] [place] [address] PCP - General Internal Medicine 11/02/23 documented as of this encounter
--- OUTSIDE RECORDS SUMMARY | 2024-08-24 06:08 | External Medical Summary | Summary of Care ---
Author Name Unknown Organization [facility] Address [address] [place] [facility] [place] [address] Phone [phone] Care Team Providers Care Track Patrol Name Role Phone Alan Dukes DO Primary Care Provider [phone] Reason for Visit * Reason Onset Date Comments Advice 07/26/2024 Emergency Department Follow-Up 07/26/2024 Encounter Details Date Type Department Care Team (Late st Contact Info) Description 07/26/2024 Telephone Family Practice 65 [facility] 293 [place] [phone] Alan Dukes DO 293 [place] [address] Advice; Emergency Department Follow-Up (07/26) Allergies Active Allergy Reactions Criticality Noted Date Comments Bactroban Rash 03/02/2010 Lisinopril Cough 12/24/2011 Losartan Other (Please comment) 07/20/2022 hyperkalemia Propoxyphene Unknown 12/27/1999 Darvon documented as of this encounter (statuses as of 07/28/2024) Medications LANCET DEVICE MISCIndications :DM type 2, [...] 5 12:28 PM EST 02/16/20 24 Active amLODIPine Besylate 5 MG Oral Tablet (Norvasc)Indica tions:HTN, goal below 140/90 TAKE ONE TABLET BY MOUTH EVERY DAY 100 Tablet 1 4 5:03 PM EST 02/28/20 24 025 Active Gabapentin 300 MG Oral Capsule (Neurontin)Kalina [...] dinner. 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 30 mL 1 5 7:08 AM EST 06/26/19 25 Active Additional Information Patient taking differently: 30 UnitsSubcutaneous Daily(Non-Specified), Reported on 07/18/2024 ALPRAZolam 0.25 MG Oral Tablet (xaNAX)Indicati ons:Anxiety [...] MEAL OF THE DAY 100 Capsule 2 07/26/19 25 026 Active Hospital, Clinic, or Other Facility Administered Medication Ordered Dose Route Frequency Start Date End Date Status Vitamin B-12 (Cyanocobalamin) inj 1,000 mcgIndications:Vitamin B 12 deficiency 1000 mcg IM [id number] 06/19/2024 05/21/2025 Active documented as of this encounter (statuses as of 07/28/2024) Active Problems Problem Noted Date Diagnosed Date [...] PAROX ATRIAL TACHYCARDIA History of pulmonary embolism Other psoriasis documented as of this encounter (statuses as of 07/28/2024) Resolved Problems Problem Noted Date Diagnosed Date [...] Overview (04/14/2009): Modified per HTN protocol #16. documented as of this encounter (statuses as of 07/28/2024) Immunizations Name Administration Dates Next Due COVID-19 mRNA, LNP-s, No Pre serve, 2-Dose Series (Equidate) 04/27/2021,08/08/2020,07/18/2020 COVID-19, LNP-s, No Preserve , Tian-sucrose, Ages 12+ (Equidate) 10/12/2021 H1N1 2009 Influenza, IM 06/08/2009 Hepatitis B, 20+ yrs 02/16/2023,06/22/19 23,03/10/2022(Defer red: Contraindication),03/10/2022 Pneumococcal Conjugate Vacc, 13 Valent (Prevnar) 12/08/2014 Pneumococcal Conjugate Vacci ne, 20-valent ([id number]) 03/21/2024 Pneumococcal Polysaccharide PPV23 (Pneumovax) 04/24/2006 RSV [...] 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 Not on file Not on file documented as of this encounter Miscellaneous Notes * Telephone Encounter - Nimo Garcia LPN - 07/26/2024 4:46 PM EST The patient was contacted in regards to their recent: Emergency Department visit Did patient call the office before going to ER: No When was patient seen: 07/25/2024 Which ED: [facility] What were they seen for: nose bleed What did ED think was wrong (dx): nose bleed R nare What testing did they have done: lab work Any new medications prescribed: Nothing prescribed - advised AYR When did the ED recommend they follow up: Recommended ENT - pt not interested at this time. Is Ed record available: Yes How is patient feeling today: Feeling good. Patient concerns today: Pt does not have BP cuff available at this time. Daughter borrowed it. Running a humidifier. Pt states she will check BP over the weekend and will call 65 Forward number if it is elevated. Pt scheduled for NV Monday at 11:00. Will f/u with Dr. Dukes on need for ED f/u visit. 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 * Telephone Encounter - Julita Elmore RT (R) - 07/26/2024 4:38 PM EST Patient calling stating she went to ED about a nosebleed last evening. Would like to speak to a nurse. Please return patient call. documented in this encounter Plan of Treatment Upcoming Encounters Date Type Department Care Team (Late st Contact Info) Description 07/29/2024 11:00 AM EDT Nurse Only Family Practice 65 [facility] [address] [place] [address] College, Nurse Fam Prac [address] [place] [address] 08/09/2024 10:15 AM EDT Nurse Only Family Practice 65 [facility] 293 [place] [address] College, Nurse Fam Prac [address] [place] [address] 08/09/2024 10:40 AM EDT Office Visit Family Practice 65 [facility] [address] [place] [address] College, Pharmacist [address] [place] [address] 11/07/2024 10:00 AM EDT Office Visit Family Practice 65 [facility] [address] [place] [phone] Alan Dukes, DO 293 [facility] [place] [address] 11/13/2024 10:15 AM EDT Office Visit Orthopaedics [facility] [address] [place] [phone] Braulio Holly, DO [address] [place] [address] Scheduled Procedures Name Priority Associated Diagnoses Date/Ti me COLONOSCOPY FLEXIBLE PROXIMAL DIAGNOSTIC Recall History of colon polyps Health Maintenance Due Date Last Done Comments Adult Wellness Visit 2007 GFR 09/18/2024 03/21/2024, 044, 02/16/2023, Additional history exists Diabetic Foot Exam 09/19/2024 09/20/2023, 0 10/13/2022, 01/06/2022, Additional history exists CKD HGB USE SMARTSET 57969 11/08/202411/08, 11/09/2023, 08/21/2023, Additional history exists Diabetic Eye Exam 12/06/2024 12/07/2023, , 12/07/2023, Additional history exists HbA1c 01/14/2025 07/17/2024, 02/21, 11/09/2023, Additional history exists Albumin/Creatinine Ratio 02/20/2025 024, 04/06/2023, 02/16/2023, Additional history exists CKD PHOS USE SMARTSET 79044 03/21/202502/21, 02/16/2023, 02/09/2022, Additional history exists Depression [...] filedocumented as of this encounter Care Teams Track Patrol Relationship Specialty Start Date End Date Alan Dukes DO [address] [place] [address] PCP - General Internal Medicine 11/02/23 documented as of this encounter
--- OUTSIDE RECORDS SUMMARY | 2024-08-24 06:08 | External Medical Summary | Summary of Care ---
Author Name Unknown Organization [facility] Address [address] [place] [address] Phone [phone] Care Team Providers Care Live In Housekeeper Name Role Phone Alan Dukes DO Primary Care Provider [phone] Reason for Visit * Reason Onset Date Comments Advice 07/26/2024 Emergency Department Follow-Up 07/26/2024 Encounter Details Date Type Department Care Team (Late st Contact Info) Description 07/26/2024 Telephone Family Practice 65 [facility] 293 [place] [phone] Alan Dukes DO 293 [place] [address] Advice; Emergency Department Follow-Up (07/26) Allergies Active Allergy Reactions Criticality Noted Date Comments Bactroban Rash 03/02/2010 Lisinopril Cough 12/24/2011 Losartan Other (Please comment) 07/20/2022 hyperkalemia Propoxyphene Unknown 12/27/1999 Darvon documented as of this encounter (statuses as of 07/29/2024) Medications LANCET DEVICE MISCIndications :DM type 2, [...] dinner. Then increase dose as directed by [facility] pharmacist (max 15 units daily) 15 mL 3 05/20/20 24 Active Additional Information Patient taking differently: 12-14 UnitsSubcutaneous BEFORE DINNER, Then increase dose as directed by [facility] pharmacist (max 15 units daily), [...] mcgIndications:Vitamin B 12 deficiency 1000 mcg IM [id number] 06/19/2024 05/21/2025 Active documented as of this encounter (statuses as of 07/29/2024) Active Problems Problem Noted Date Diagnosed Date [...] as of this encounter (statuses as of 07/29/2024) Resolved Problems Problem Noted Date Diagnosed Date [...] as of this encounter (statuses as of 07/29/2024) Immunizations Name Administration Dates Next Due COVID-19 mRNA, LNP-s, No Pre serve, 2-Dose Series ([employer]) 04/27/2021,08/08/2020,07/18/2020 COVID-19, LNP-s, No Preserve , Tian-sucrose, Ages 12+ ([employer]) 10/12/2021 H1N1 2009 Influenza, IM 06/08/2009 Hepatitis B, 20+ yrs 02/16/2023,06/22/19 23,03/10/2022(Defer red: Contraindication),03/10/2022 Pneumococcal Conjugate Vacc, 13 Valent (Prevnar) 12/08/2014 Pneumococcal Conjugate Vacci ne, 20-valent ([id number]) 03/21/2024 Pneumococcal Polysaccharide PPV23 (Pneumovax) 04/24/2006,03/02/1998 RSV [...] No 07/17/2024 Does the household have a [facility] healthcare facility[facility] source of income? 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 * Telephone Encounter - Nimo Garcia LPN - 07/26/2024 4:46 PM EST The patient was contacted in regards to their recent: Emergency Department visit Did patient call the office before going to ER: No When was patient seen: 07/25/2024 Which ED: [facility] What were they seen for: nose bleed [...] Dukes on need for ED f/u visit. 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 07/29/24 [...] AM EDT Nurse Only Family Practice 65 [facility] 293 [facility] [place] [address] College, Nurse Fam Prac [address] [place] [address] 08/09/2024 10:15 AM EDT Nurse Only Family Practice 65 [facility] 293 [facility] [place] [address] College, Nurse Fam Prac [address] [place] [address] 08/09/2024 10:40 AM EDT Office Visit Family Practice 65 [facility] 293 [facility] [place] [address] College, Pharmacist [address] [place] [address] 11/07/2024 10:00 AM EDT Office Visit Family Practice 65 [facility] 293 [facility] [place] [place] [address] Alan Dukes, 293 [place] [address] 11/13/2024 10:15 AM EDT Office Visit Orthopaedics [facility] [address] [place] [address] Braulio Holly S, DO [address] [place] [address] Scheduled Procedures Name Priority Associated Diagnoses Date/Ti me COLONOSCOPY FLEXIBLE PROXIMAL DIAGNOSTIC Recall History of colon polyps Health Maintenance Due Date Last Done Comments Adult Wellness Visit 2007 GFR 09/18/2024 03/21/2024, 05/2023, 02/16/2023, Additional history exists Diabetic Foot Exam 09/19/2024 09/20/2023, 0 10/13/2022, 01/06/2022, Additional history exists CKD HGB USE SMARTSET 75531 11/08/202411/08, 11/09/2023, 08/21/2023, Additional history exists Diabetic Eye Exam 12/06/2024 12/07/2023, , 12/07/2023, Additional history exists HbA1c 01/14/2025 07/17/2024, 02/21, 11/09/2023, Additional history exists Albumin/Creatinine Ratio 02/20/2025 024, 04/06/2023, 02/16/2023, Additional history exists CKD PHOS USE SMARTSET 40818 03/21/202502/21, 02/16/2023, 02/09/2022, Additional history exists Depression [...] filedocumented as of this encounter Care Teams Live In Housekeeper Relationship Specialty Start Date End Date Alan Dukes DO [address] [place] [address] PCP - General Internal Medicine 11/02/23 documented as of this encounter
--- OUTSIDE RECORDS SUMMARY | 2024-08-24 06:08 | External Medical Summary | Summary of Care ---
Author Name Unknown Organization [facility] Address [address] [facility] [address] Phone [phone] Care Team Providers Care Ladle Builder Name Role Phone Alan Dukes DO Primary Care Provider [phone] Reason for Visit * Reason Comments Nurse Documentation NV for BP check Encounter Details Date Type Department Care Team (Late st Contact Info) Description 07/29/2024 11:00 AM EDT Nurse Only Family Practice [address] [phone] College, Nurse [facility] Prac [address] [address] Nurse Documentation (NV for BP check) Allergies Active Allergy Reactions Criticality Noted Date [...] Capsule 1 4 11:39 AM EST 02/28/20 Active Simvastatin 20 MG Oral Tablet (Zocor)Indicati [...] dinner. 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 30 mL 1 5 7:08 AM EST 06/26/19 25 Active Additional Information Patient taking differently: 30 UnitsSubcutaneous Daily(Non-Specified), Reported on 07/29/2024 ALPRAZolam 0.25 MG Oral Tablet (xaNAX)Indicati ons:Anxiety [...] THE DAY 100 Capsule 2 07/26/19 25 2025 Active amLODIPine Besylate 10 MG Oral Tablet (Norvasc)Indica tions:HTN, goal below 140/90 Take 1 Tablet by mouth in the morning. 100 Tablet 3 07/30/19 25 Active amLODIPine Besylate 5 MG Oral Tablet (Norvasc)Indica tions:HTN, goal below 140/90 TAKE ONE TABLET BY MOUTH EVERY DAY 100 Tablet 1 4 5:03 PM EST 02/28/20 24 2024 Disconti nued(Med ication/ Dose Changed) Hospital, Clinic, or Other Facility Administered Medication Ordered Dose Route Frequency Start Date End Date Status Vitamin B-12 (Cyanocobalamin) inj 1,000 mcgIndications:Vitamin B 12 deficiency 1000 mcg IM [id number] 06/19/2024 05/21/2025 Active documented as of this [...] mRNA, LNP-s, No Pre serve, 2-Dose Series ([employer]) 04/27/2021,08/08/2020,07/18/2020 COVID-19, LNP-s, No Preserve , Tian-sucrose, Ages 12+ (Pfizer) 10/12/2021 H1N1 2009 Influenza, IM 06/08/2009 Hepatitis B, 20+ yrs 02/16/2023,06/22/19 23,03/10/2022(Defer red: Contraindication),03/10/2022 Pneumococcal Conjugate Vacc, 13 Valent (Prevnar) 12/08/2014 Pneumococcal Conjugate Vacci ne, 20-valent ([id number]) 03/21/2024 Pneumococcal Polysaccharide PPV23 (Pneumovax) 04/24/2006 RSV [...] 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 Dukes. Pt acknowledged understanding. Agreeable to increasing Amlodipine - states she has enough 5 mg to double until 10 mg supply arrives. Pharmacy Confirmed - [facility]. * Alan Dukes DO - 07/29/2024 11:47 AM EDT Increase Amlodipine to 10 mg daily Repeat BP in 1 week documented in this encounter Nursing Notes * Nimo Garcia LPN - 07/29/2024 11:13 AM EDT Anabell Leblanc Joyce is here for nurse BP check. Pt was seen @ [facility] ED on 07/25/24 for nose bleed. Noted at that time BP was elevated. Pt returned to ED on 07/27 with elevated BP. Denies headache, chest pain, shortness of breath. Has been checking home BP as follows: 07/26 bedtime - 144/77 07/27 @2 pm - 212/104 07/27 @ 4 pm - 186/96 07/27 @ 6 pm - 196/106 07/28 - 209/109; 208/108; 177/98; 161/80 10 - 181/108 Pt did not bring home cuff for comparison. BP today - 169/79 Last 3 BP readings: BP Readings from Last 3 Encounters: 07/17/24 134/76 03/21/24 138/74 11/09/23 144/76 Medications were verified - any concerns are recorded in the Nurse Visit notes. documented in this encounter Plan of Treatment Upcoming Encounters Date Type Department Care Team (Late st Contact Info) Description 08/06/2024 9:40 AM EDT Office Visit Family Practice [address] [place] [phone] Alan Dukes, [address] [place] [address], [place] [address] 08/09/2024 10:15 AM EDT Nurse Only Family Practice [address] [place] [address] College, Nurse Fam Prac [address] [place] [address] 08/09/2024 10:40 AM EDT Office Visit Family Practice 65 [facility] 293 [place] [address] College, Pharmacist [address] [place] [address] 11/07/2024 10:00 AM EDT Office Visit Family Practice [address] [place] [phone] Alan Dukes, DO 293 [facility] [place] [address] 11/13/2024 10:15 AM EDT Office Visit Orthopaedics [facility] [address] [place] [address] Braulio Holly, DO [address] [place] [phone] Scheduled Procedures Name Priority Associated Diagnoses Date/Ti me COLONOSCOPY FLEXIBLE PROXIMAL DIAGNOSTIC Recall History of colon polyps Health Maintenance Due Date Last Done Comments Adult Wellness Visit 2007 GFR 09/18/2024 03/21/2024, 05/2023, 02/16/2023, Additional history exists Diabetic Foot Exam 09/19/2024 09/20/2023, 0 10/13/2022, 01/06/2022, Additional history exists CKD HGB USE SMARTSET 58479 11/08/202411/08, 11/09/2023, 08/21/2023, Additional history exists Diabetic Eye Exam 12/06/2024 12/07/2023, , 12/07/2023, Additional history exists HbA1c 01/14/2025 07/17/2024, 02/21, 11/09/2023, Additional history exists Albumin/Creatinine Ratio 02/20/2025 024, 04/06/2023, 02/16/2023, Additional history exists CKD PHOS USE SMARTSET 07831 03/21/202502/21, 02/16/2023, 02/09/2022, Additional history exists Depression [...] as of this encounter Visit Diagnoses Diagnosis HTN, goal below 140/90- Primary Unspecified essential hypertension documented in this encounter Care Teams Ladle Builder Relationship Specialty Start Date End Date Alan Dukes DO [address] [place] [address] PCP - General Internal Medicine 11/02/23 documented as of this encounter
--- OUTSIDE RECORDS SUMMARY | 2024-08-24 06:08 | External Medical Summary | Summary of Care ---
Author Name Unknown Organization [facility] Address [address] [place] [facility] [place] [address] Phone [phone] Care Team Providers Care Bench Worker Name Role Phone Alan Dukes DO Primary Care Provider [phone] Encounter Details Date Type Department Care Team (Late st Contact Info) Description 06/04/2024 Telephone Dermatology [facility] [address] [facility] [place] [address] Darvin Strickland MD [address] [facility] [address] Allergies Active Allergy Reactions Criticality Noted Date [...] increase dose as directed by [facility] pharmacist (max 15 units daily) 15 mL 3 05/20/20 24 Active Additional Information Patient taking differently: 12-14 UnitsSubcutaneous BEFORE DINNER, Then increase dose as [facility] (max 15 units daily), Reported on 07/29/2024 documented as of this encounter (statuses as [...] (Prevnar) 12/08/2014 Pneumococcal Conjugate Vacci ne, 20-valent ([id number]) 03/21/2024 Pneumococcal Polysaccharide PPV23 (Pneumovax) 04/24/2006 RSV [...] 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 Not on file Not on file documented as of this encounter Plan of Treatment Upcoming Encounters Date Type Department Care Team (Late st Contact Info) Description 08/06/2024 9:40 AM EDT Office Visit Family Practice [address] [place] [phone] Alan Dukes, [address] [place] [address], [place] [address] 08/09/2024 10:15 AM EDT Nurse Only Family Practice [address] [place] [phone] College, Nurse Fam Prac [address] [place] [address] 08/09/2024 10:40 AM EDT Office Visit Family Practice 65 [facility] 293 [place] [phone] College, Pharmacist [address] [place] [address] 11/07/2024 10:00 AM EDT Office Visit Family Practice 65 [facility] 293 [place] [phone] Alan Dukes, [address] [place] [address], [place] [address] 11/13/2024 10:15 AM EDT Office Visit Orthopaedics [facility] [address] [place] [address] Braulio Holly, [address] [place] [phone] Scheduled Procedures Name Priority Associated Diagnoses Date/Ti me COLONOSCOPY FLEXIBLE PROXIMAL DIAGNOSTIC Recall History of colon polyps Health Maintenance Due Date Last Done Comments Adult Wellness Visit 2007 GFR 09/18/2024 03/21/2024, 05/2023, 02/16/2023, Additional history exists Diabetic Foot Exam 09/19/2024 09/20/2023, 0 10/13/2022, 01/06/2022, Additional history exists CKD HGB USE SMARTSET 85176 11/08/202411/08, 11/09/2023, 08/21/2023, Additional history exists Diabetic Eye Exam 12/06/2024 12/07/2023, , 12/07/2023, Additional history exists HbA1c 01/14/2025 07/17/2024, 02/21, 11/09/2023, Additional history exists Albumin/Creatinine Ratio 02/20/2025 024, 04/06/2023, 02/16/2023, Additional history exists CKD PHOS USE SMARTSET 74737 03/21/202502/21, 02/16/2023, 02/09/2022, Additional history exists Depression [...] filedocumented as of this encounter Care Teams Bench Worker Relationship Specialty Start Date End Date Alan Dukes DO [address] [place] [address] PCP - General Internal Medicine 11/02/23 documented as of this encounter
--- OUTSIDE RECORDS SUMMARY | 2024-08-24 06:08 | External Medical Summary | Summary of Care ---
Author Name Unknown Organization [facility] Address [address] [facility] [address] Phone [phone] Care Team Providers Care Gear Shaper Name Role Phone Alan Dukes DO Primary Care Provider [phone] Reason for Visit * Reason Onset Date Comments Emergency Department Follow-Up 07/29/2024 Encounter Details Date Type Department Care Team (Late st Contact Info) Description 07/29/2024 Telephone Family Practice 65 [facility] [place] 293 [place] [address] Alan Dukes DO 293 [place] [address] Emergency Department Follow-Up (07/29) Allergies Active Allergy Reactions Criticality Noted Date Comments Bactroban Rash 03/02/2010 Lisinopril Cough 12/24/2011 Losartan Other (Please comment) 07/20/2022 hyperkalemia Propoxyphene Unknown 12/27/1999 Darvon documented as of this encounter (statuses as of 07/31/2024) Medications LANCET DEVICE MISCIndications :DM type 2, [...] dinner. Then increase dose as directed by [facility] pharmacist (max 15 units daily) 15 mL 3 5 2:35 PM EDT 05/20/20 24 Active Additional Information Patient taking differently: 12-14 UnitsSubcutaneous BEFORE DINNER, Then increase dose as directed by [facility] pharmacist (max 15 units daily), [...] morning. 100 Tablet 3 07/30/19 25 Active Hospital, Clinic, or Other Facility Administered Medication Ordered Dose Route Frequency Start Date End Date Status Vitamin B-12 (Cyanocobalamin) inj 1,000 mcgIndications:Vitamin B 12 deficiency 1000 mcg IM [id number] 06/19/2024 05/21/2025 Active documented as of this encounter (statuses as of 07/31/2024) Active Problems Problem Noted Date Diagnosed Date [...] as of this encounter (statuses as of 07/31/2024) Resolved Problems Problem Noted Date Diagnosed Date [...] as of this encounter (statuses as of 07/31/2024) Immunizations Name Administration Dates Next Due COVID-19 mRNA, LNP-s, No Pre serve, 2-Dose Series ([employer]) 04/27/2021,08/08/2020,07/18/2020 COVID-19, LNP-s, No Preserve , Tian-sucrose, Ages 12+ (Tiqets) 10/12/2021 H1N1 2009 Influenza, IM 06/08/2009 Hepatitis B, 20+ yrs 02/16/2023,06/22/19 23,03/10/2022(Defer red: Contraindication),03/10/2022 Pneumococcal Conjugate Vacc, 13 Valent (Prevnar) 12/08/2014 Pneumococcal Conjugate Vacci ne, 20-valent ([id number]) 03/21/2024 Pneumococcal Polysaccharide PPV23 (Pneumovax) 04/24/2006,03/02/1998 RSV [...] No 07/17/2024 Does the household have a [facility] source of income? 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 States pt is worried about her BP and it is making her nervous all the time. States her BP has been better - this morning was "147 over 80-something". Pt c/o head "feeling fuzzy". Denies blurred vision, dizziness, BAIRES, chest pain, SOB, confusion, N/V. Scheduled pt for tomorrow in spot that opened up. Advised of 12/12 on-call services if anything should worsen or change. Advised to call for readings over 150/90 and any of above symptoms. * Telephone Encounter - Alan Dukes DO - 07/30/2024 9:07 PM EDT Scheduled 08/06 * Telephone Encounter - Nimo Garcia LPN - 07/29/2024 11:34 AM EDT The patient was contacted in regards to their recent: Emergency Department visit Did patient call the office before going to ER: No When was patient seen: 07/27/24 Which ED: [facility]. What were they seen for: elevated BP What did ED think was wrong (dx): hypertension What testing did they have done: cxr, ekg, lab work, and ct scan Any new medications prescribed: none When did the ED recommend they follow up: f/u Is Ed record available: Yes How is patient feeling today: BP still elevated. No other symptoms. Patient concerns today: Patient is worried about BP being elevated. Pt in for [place] for BP check this date. Dr. Dukes - please advise when to schedule for ED f/u visit. documented in this encounter Plan of Treatment Upcoming Encounters Date Type Department Care Team (Late st Contact Info) Description 08/01/2024 10:00 AM EDT Office Visit Family Practice [address] [place] [phone] Alan Dukes, [address] [place] [address], [place] [address] 08/09/2024 10:15 AM EDT Nurse Only Family Practice 65 [facility] 293 [facility] [place] [address] College, Nurse Fam Prac [address] [place] [address] 08/09/2024 10:40 AM EDT Office Visit Family Practice [address] [facility] 293 [facility] [place] [address] College, Pharmacist [address] [place] [address] 11/07/2024 10:00 AM EDT Office Visit Family Practice [address] [facility] 293 [facility] [place] [address] Alan Dukes, [address] [place], [place] [address] [address] 11/13/2024 10:15 AM EDT Office Visit Orthopaedics [facility] [address] [place] [address] Braulio Holly S, DO [address] [place] [address] Scheduled Procedures Name Priority Associated Diagnoses Date/Ti me COLONOSCOPY FLEXIBLE PROXIMAL DIAGNOSTIC Recall History of colon polyps Health Maintenance Due Date Last Done Comments Adult Wellness Visit 2007 GFR 09/18/2024 03/21/2024, 05/2023, 02/16/2023, Additional history exists Diabetic Foot Exam 09/19/2024 09/20/2023, 0 10/13/2022, 01/06/2022, Additional history exists CKD HGB USE SMARTSET 05259 11/08/202411/08, 11/09/2023, 08/21/2023, Additional history exists Diabetic Eye Exam 12/06/2024 12/07/2023, , 12/07/2023, Additional history exists HbA1c 01/14/2025 07/17/2024, 02/21, 11/09/2023, Additional history exists Albumin/Creatinine Ratio 02/20/2025 024, 04/06/2023, 02/16/2023, Additional history exists CKD PHOS USE SMARTSET 47812 03/21/202502/21, 02/16/2023, 02/09/2022, Additional history exists Depression [...] filedocumented as of this encounter Care Teams Gear Shaper Relationship Specialty Start Date End Date Alan Dukes DO [address] [place] [address] PCP - General Internal Medicine 11/02/23 documented as of this encounter
--- OUTSIDE RECORDS SUMMARY | 2024-08-24 06:08 | External Medical Summary | Summary of Care ---
Author Name Unknown Organization [facility] Address [address] [facility] [address] Phone [phone] Care Team Providers Care Pusher Runner Name Role Phone Alan Dukes DO Primary Care Provider [phone] Reason for Visit * Reason Onset Date Comments Emergency Department Follow-Up 07/29/2024 Encounter Details Date Type Department Care Team (Late st Contact Info) Description 07/29/2024 Telephone Family Practice 65 [facility] [place] 293 [place] [address] Alan Dukes DO 293 [place] [address] Emergency Department Follow-Up (07/29) Allergies [...] dinner. Then increase dose as directed by [facility] pharmacist (max 15 units daily) 15 mL 3 5 2:35 PM EDT 05/20/20 24 Active Additional Information Patient taking differently: 12-14 UnitsSubcutaneous BEFORE DINNER, Then increase dose as directed by [facility] pharmacist (max 15 units daily), [...] mcgIndications:Vitamin B 12 deficiency 1000 mcg IM [id number] 06/19/2024 05/21/2025 Active documented as of this [...] mRNA, LNP-s, No Pre serve, 2-Dose Series ([employer]) 04/27/2021,08/08/2020,07/18/2020 COVID-19, LNP-s, No Preserve , Tian-sucrose, Ages 12+ ([employer]) 10/12/2021 H1N1 2009 Influenza, IM 06/08/2009 Hepatitis B, 20+ yrs 02/16/2023,06/22/19 23,03/10/2022(Defer red: Contraindication),03/10/2022 Pneumococcal Conjugate Vacc, 13 Valent (Prevnar) 12/08/2014 Pneumococcal Conjugate Vacci ne, 20-valent ([id number]) 03/21/2024 Pneumococcal Polysaccharide PPV23 (Pneumovax) 04/24/2006 RSV [...] 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 What were they seen for: elevated [...] AM EDT Office Visit Family Practice 65 [facility] [place] [address] [place] [phone] Alan Dukes DO 293 [place] [address] 08/09/2024 10:15 AM EDT Nurse Only Family Practice 65 [facility] 293 [place] [address] College, Nurse Fam Prac [address] [place] [address] 08/09/2024 10:40 AM EDT Office Visit Family Practice 65 [facility] 293 [place] [address] College, Pharmacist [address] [place] [address] 11/07/2024 10:00 AM EDT Office Visit Family Practice 65 [facility] 293 [place] [address] Alan Dukes, DO [address] [facility] [place] [address] 11/13/2024 10:15 AM EDT Office Visit Orthopaedics [facility] [address] [place] [address] Braulio Holly, DO [address] [place] [address] Scheduled Procedures Name Priority Associated Diagnoses Date/Ti me COLONOSCOPY FLEXIBLE PROXIMAL DIAGNOSTIC Recall History of colon polyps Health Maintenance Due Date Last Done Comments Adult Wellness Visit 2007 GFR 09/18/2024 03/21/2024, 04/0 05/2023, 02/16/2023, Additional history exists Diabetic Foot Exam 09/19/2024 09/20/2023, 0 10/13/2022, 01/06/2022, Additional history exists CKD HGB USE SMARTSET 87049 11/08/202411/08, 11/09/2023, 08/21/2023, Additional history exists Diabetic Eye Exam 12/06/2024 12/07/2023, , 12/07/2023, Additional history exists HbA1c 01/14/2025 07/17/2024, 02/21, 11/09/2023, Additional history exists Albumin/Creatinine Ratio 02/20/2025 024, 04/06/2023, 02/16/2023, Additional history exists CKD PHOS USE SMARTSET 71307 03/21/202502/21, 02/16/2023, 02/09/2022, Additional history exists Depression [...] filedocumented as of this encounter Care Teams Pusher Runner Relationship Specialty Start Date End Date Alan Dukes DO [address] [place] [address] PCP - General Internal Medicine 11/02/23 documented as of this encounter
--- OUTSIDE RECORDS SUMMARY | 2024-08-24 06:09 | External Medical Summary | Summary of Care ---
Author Name Unknown Organization [facility] Address [address] [place] [address] Phone [phone] Care Team Providers Care Patternmaker Pressure Cast Name Role Phone Humble Dukes DO Primary Care Provider [phone] Reason for Visit * Reason Comments Medication Refill Encounter Details Date Type Department Care Team (Late st Contact Info) Description 07/25/2024 [facility] [address] [place] [address] Humble Dukes DO 293 [place] [address] Gastroesophageal reflux disease without esophagitis Allergies Active Allergy Reactions Criticality Noted Date Comments Bactroban Rash 03/02/2010 Lisinopril Cough 12/24/2011 Losartan Other (Please comment) 07/20/2022 hyperkalemia Propoxyphene Unknown 12/27/1999 Darvon documented as of this encounter (statuses as of 07/26/2024) Medications LANCET DEVICE MISCIndications :DM type 2, [...] 3 5 12:28 PM EST 02/16/20 Active amLODIPine Besylate 5 MG Oral Tablet (Norvasc)Indica tions:HTN, goal below 140/90 TAKE ONE TABLET BY MOUTH EVERY DAY 100 Tablet 1 4 5:03 PM EST 02/28/20 24 2024 Active Gabapentin 300 MG Oral Capsule (Neurontin)Aklina cations:Restles s leg syndrome Take 1 Capsule [...] dinner. Then increase dose as directed by [facility] pharmacist (max 15 units daily) 15 mL 3 05/20/20 24 Active Additional Information Patient taking differently: 12-14 UnitsSubcutaneous BEFORE DINNER, Then increase dose as directed by [facility] pharmacist (max 15 units daily), Reported [...] 100 Capsule 2 07/26/19 25 2025 Active Omeprazole 20 MG Oral Capsule Delayed Release (PriLOSEC)Indic ations:Gastroes ophageal reflux disease without esophagitis TAKE ONE CAPSULE BY MOUTH EVERY DAY ONE HOUR BEFORE THE FIRST MEAL OF THE DAY 100 Capsule 2 4 9:57 AM EST 10/04/19 24 2024 Bradi warner(Ref ill) Hospital, Clinic, or Other Facility Administered Medication Ordered Dose Route Frequency Start Date End Date Status Vitamin B-12 (Cyanocobalamin) inj 1,000 mcgIndications:Vitamin B 12 deficiency 1000 mcg IM [id number] 06/19/2024 05/21/2025 Active documented as of this encounter (statuses as of 07/26/2024) Active Problems Problem Noted Date Diagnosed Date [...] as of this encounter (statuses as of 07/26/2024) Resolved Problems Problem Noted Date Diagnosed Date [...] as of this encounter (statuses as of 07/26/2024) Immunizations Name Administration Dates Next Due COVID-19 mRNA, LNP-s, No Pre serve, 2-Dose Series ([employer]) 04/27/2021,08/08/2020,07/18/2020 COVID-19, LNP-s, No Preserve , Tian-sucrose, Ages 12+ ([employer]) 10/12/2021 H1N1 2009 Influenza, IM 06/08/2009 Hepatitis B, 20+ yrs 02/16/2023,06/22/19 23,03/10/2022(Defer red: Contraindication),03/10/2022 Pneumococcal Conjugate Vacc, 13 Valent (Prevnar) 12/08/2014 Pneumococcal Conjugate Vacci ne, 20-valent ([id number]) 03/21/2024 Pneumococcal Polysaccharide PPV23 (Pneumovax) 04/24/2006 RSV [...] 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 Not on file Not on file documented as of this encounter Miscellaneous Notes * Telephone Encounter - Arlene Pratt RPh - 07/25/2024 5:34 PM EST Signed Prescriptions: Disp Refills Omeprazole 20 MG Oral Capsule Delayed Rele*100 Ca*2 Sig: TAKE ONE CAPSULE BY MOUTH EVERY DAY ONE HOUR BEFORE THE FIRST MEAL OF THE DAYAuthorizing Provider: HUMBLE DUKES User: ARLENE PRATT documented in this encounter Plan of Treatment Upcoming Encounters Date Type Department Care Team (Late st Contact Info) Description 08/09/2024 10:15 AM EDT Nurse Only Family Practice 65 [facility] 293 [facility], [place] [address] College, Nurse Fam Prac [address] [address] 08/09/2024 10:40 AM EDT Office Visit Family Practice 65 [facility] [address] [facility] [address] College, Pharmacist [address] [address] 11/07/2024 10:00 AM EDT Office Visit Family Practice 65 [facility] [place] 293 [place] [address] Humble Dukes, DO 293 [facility] [place] [address] 11/13/2024 10:15 AM EDT Office Visit Orthopaedics [facility] [address] [place] [phone] Braulio Holly, DO [address] [place] [phone] Scheduled Procedures Name Priority Associated Diagnoses Date/Ti me COLONOSCOPY FLEXIBLE PROXIMAL DIAGNOSTIC Recall History of colon polyps Health Maintenance Due Date Last Done Comments Adult Wellness Visit 2007 GFR 09/18/2024 03/21/2024, 05/2023, 02/16/2023, Additional history exists Diabetic Foot Exam 09/19/2024 09/20/2023, 0 10/13/2022, 01/06/2022, Additional history exists CKD HGB USE SMARTSET 72140 11/08/202411/08, 11/09/2023, 08/21/2023, Additional history exists Diabetic Eye Exam 12/06/2024 12/07/2023, , 12/07/2023, Additional history exists HbA1c 01/14/2025 07/17/2024, 02/21, 11/09/2023, Additional history exists Albumin/Creatinine Ratio 02/20/2025 024, 04/06/2023, 02/16/2023, Additional history exists CKD PHOS USE SMARTSET 35743 03/21/202502/21, 02/16/2023, 02/09/2022, Additional history exists Depression [...] as of this encounter Visit Diagnoses Diagnosis Gastroesophageal reflux disease without esophagitis Esophageal reflux documented in this encounter Care Teams Patternmaker Pressure Cast Relationship Specialty Start Date End Date Humble Dukes DO [address] [facility] [place] [address] PCP - General Internal Medicine 11/02/23 documented as of this encounter
[2024-08-24] MEDS: PANTOprazole 40 MG TAB PO SCH (06:15)
[2024-08-24] MEDS ORDERED: hydrALAZINE HCL 20 MG/ML VIAL IV PRN (08:25)
[2024-08-24] MEDS: ACETAMINOPHEN 325 MG TAB PO PRN (09:37)
[2024-08-24] MEDS: carvediloL 3.125 MG TAB PO SCH (09:38)
[2024-08-24] MEDS: CEROVITE ADV FORMULA TAB PO SCH (09:38)
[2024-08-24] MEDS: ENOXAPARIN INJ 40 MG/0.4 ML SYR SQ SCH (09:39)
[2024-08-24] MEDS: LANTUS PER UNIT CHARGE SQ SCH (09:40)
[2024-08-24] MEDS: ASPIRIN 81 MG ECTAB PO SCH (09:40)
--- NOTE | 2024-08-24 10:39 | Hospitalist Progress Note ---
Date of Service August 24, 2024 Assessment & Plan (1) Episodic confusion: (2) Acute hyponatremia: (3) Hypertensive urgency: (4) Acute UTI (urinary tract infection): (5) Diabetes: (6) High cholesterol: (7) GERD (gastroesophageal reflux disease): (8) Restless leg syndrome: (9) Anxiety: (10) Weakness: Plan 84 year old female with PMH of DMII, HTN, HLD, CKD III, paroxysmal atrial tachycardia, GERD, RLS, vitamin B12 deficiency and anxiety who presented to the ED on 08/24 for confusion and weakness and was found to have hyponatremia, hypertensive urgency, and a possible UTI. Episodic confusion Multifactorial including hypertensive urgency, hyponatremia, potential UTI Patient is not confused currently Hyponatremia Likely due to changing diuretic medications and decreased PO intake at home Per outpatient record review - patient started with hyponatremia on 08/14 (132). PCP advised patient to stop HCTZ. Patient had HTN at home and PCP prescribed spironolactone. On 08/20 patient still hypertensive in office and PCP increased spironolactone dose. Hyponatremia worse on 08/20 (125). PCP ordered TSH (3.5), cortisol (20), serum osmolality (274), urine osmolality (214) and urine sodium (41). Labs rechecked on 08/22 and still hyponatremic (126). PCP advised fluid restriction to 1.5 quarts daily. Initial sodium in the ED was 121 Other remarkable labs include chloride 88, serum osmolality 270, urine osmolality 237, urine sodium 57 Patient received NS bolus and sodium increased to 124 Monitor sodium bid Nephrology consult: hyponatremia due to SIADH, ordered urea 15g bid, hold spironolactone and amitriptyline, 1.5L fluid limit Hypertensive urgency Blood pressures in the ED ranging from 159-191/70-95. Patient having headaches. Continue amlodipine Metoprolol succinate changed to carvedilol Coreg dose increased to 6.25mg bid per nephrology Holding spironolactone due to hyponatremia Acute UTI UA positive for leuk esterase and bacteria. Patient symptomatic other than urinary frequency a few days ago which started after increased spironolactone dose Continue ceftriaxone Follow urine culture DMII A1C 7.8 in June Sliding scale insulin On Xultophy and Novolog at home HLD Continue baby aspirin and simvastatin GERD Continue PPI RLS On gabapentin PRN at home Anxiety Continue alprazolam PRN Holding amitriptyline due to hyponatremia Weakness PT/OT consults DVT Prophylaxis: lovenox SQ Code Status: FULL CODE PCP: Dr Alan Dukes DO Disposition: PCU Patient seen in collaboration with Dr Reagan. Please see addendum. I spent a total of 60 minutes coordinating, documenting and providing care for this patient excluding time spent in the performance of separately billed services or time spent by another provider/QHP. Admission and Anticipated Discharge Date Admission Date: August 24, 2024 Supervising Physician Co-Signing Physician Notes Attending Addendum: Case reviewed with the advanced practitioner. I have personally performed a history and physical examination on the patient. I have reviewed the advanced practitioner's documentation on the date of service referenced in note, and I agree with, and take responsibility for the plan of care. please refer to her notes for full details patient seen and examined, records reviewed by myself as well diagnoses and plan of care as per advanced practitioner's notes I spent a total of 35 minutes coordinating, documenting, and providing care for this patient, excluding time spent in the performance of separately billed services or time spent by another provider/QHP. Arnoldo Reagan MD Subjective Patient seen sitting up in the ED Reports she has a headache and feels weak but is otherwise doing well Denies fevers, chills, dizziness, blurry vision, chest pain, SOB, abdominal pain, N/V/D, and dysuria. Review of Systems Review of Systems: All systems reviewed & are unremarkable except as noted in HPI & below Physical Exam Physical Exam: VITALS: Reviewed and hypertensive but otherwise VSS. GEN: Well-developed, female, NAD. PSYCH: Good Judgment. AOx3. Normal memory, mood, and affect. HEENT: Head NC/AT. Sclera white and conjunctiva pink. Nares without rhinorrhea. Nasal and oral mucosa pink. NECK: Supple, with no masses. CV: RRR, no m/r/g. LUNGS: CTAB, no w/r/c. ABD: Soft, NT/ND, NBS, no masses or organomegaly. SKIN: Warm, well perfused. No skin rashes or abnormal lesions. MSK: No deformities. EXT: No clubbing, cyanosis, or edema. NEURO: Normal muscle strength and tone. No focal deficits. Results & Data Results & Data Vital Signs (Past 12 Hours) Vital Signs Temp Pulse Pulse Resp BP BP Pulse Ox 08/24/24 07:30 76 14 159/80 H 98 08/24/24 07:12 71 08/24/24 06:00 76 16 173/79 H 94 08/24/24 05:00 63 16 154/70 H 97 08/24/24 04:24 67 08/24/24 04:00 74 16 191/68 H 99 08/24/24 03:00 71 18 171/77 H 99 08/24/24 02:39 66 18 172/80 H 98 08/24/24 01:32 70 18 190/95 H 100 08/24/24 01:00 73 18 172/86 H 99 08/24/24 01:00 67 18 172/86 H 97 08/24/24 00:31 75 18 159/89 H 98 08/24/24 00:06 36.8 C 78 20 161/79 H 98 O2 Del Method 08/24/24 07:30 Room Air 08/24/24 07:12 08/24/24 06:00 08/24/24 05:00 08/24/24 04:24 08/24/24 04:00 08/24/24 03:00 08/24/24 02:39 08/24/24 01:32 08/24/24 01:00 08/24/24 01:00 08/24/24 00:31 08/24/24 00:06 Room Air Laboratory Results Short CBC 08/24/24 Range/Units 00:25 WBC 8.33 (4.8-10.8) K/ul Hgb 13.5 (12.0-16.0) g/dl Hct 39.6 (37.0-47.0) % Plt Count 223 (130-400) K/uL BMP 08/24/24 08/24/24 00:25 05:39 Sodium 121 L 124 L Potassium 4.8 Chloride 88 L Carbon Dioxide 25 BUN 22 Creatinine 0.99 Glucose 182 H Calcium 10.3 Liver Function 08/24/24 Range/Units 00:25 Total Bilirubin 0.5 (0.2-1.0) mg/dl Direct Bilirubin 0.1 (0-0.2) mg/dl AST 19 (13-39) U/L ALT 22 (7-52) U/L Alkaline Phosphatase 81 (34-104) U/L Albumin 4.4 (3.4-5.0) gm/dl Urine 08/24/24 Range/Units 01:15 Urine Color Yellow Urine Appearance Clear (Clear) Urine pH 6.0 (4.5-7.5) Ur Specific Delta 1.011 (1.000-1.030) Urine Protein Trace H (Negative) Urine Glucose (UA) Negative (Negative) I have independently reviewed and interpreted patient's labs including CBC, CMP, TSH, osmolality, urine random sodium, and UA. Diagnostic Findings Chest X-Ray 08/24/24 00:44 EXAM: XR chest 1V portable CLINICAL HISTORY: Weakness. TECHNIQUE: An X-ray image of the chest is obtained in AP projection. COMPARISON: ChestX-ray 07/27/24. FINDINGS: Pulmonary Parenchyma: No evidence of consolidation, collapse, or focal opacities. No pulmonary nodules are identified. No evidence of pleural effusion or pleural thickening. Heart and Mediastinum: Normal cardiothoracic ratio. Prominent hilum. Bony Thorax: Bony thorax appears intact without fractures or deformities. Soft Tissues: Soft tissues overlying the chest wall are unremarkable. IMPRESSION: 1. No acute cardiopulmonary findings 2. No significant interval changes. Electronically signed by Cyril Rico 08-24-2024 02:[address] 08/24/24 02:21 EXAM: CT head/brain wo con CLINICAL HISTORY: encinas, htn crisis TECHNIQUE: Multiple axial images are obtained from the skull base to the vertex without contrast. CT scan was performed according to ALARA (as low as reasonable achievable). COMPARISON: 17:47:00 [employer] PATTERN [employer] FINDINGS: There is cerebral atrophy. No evidence of space occupying lesion, hemorrhage, edema, mass effect, midline shift, extra axial collection, or hydrocephalus is noted. Basal cisterns are symmetric and normal in size and configuration. There are scattered periventricular hypodensities as can be seen with chronic microvascular ischemic changes. The fonseca-white matter differentiation is preserved. Visualized paranasal sinuses and mastoid air cells are well aerated. Orbital contents are within normal limits. Bony structures are intact. IMPRESSION: 1. No evidence of acute intracranial abnormality is demonstrated. 2. Chronic microvascular ischemic changes. 3. Cerebral atrophy. No other new interval abnormality since prior study. Electronically signed by Homer Tirado 08-24-2024 02:53 AM Medications Administered Current Inpatient Medications Acetaminophen (Acetaminophen 325 Mg Tab) 650 mg PO QID PRN PRN Reason: pain/fever Stop: 09/23/24 03:54 Last Admin: 08/24/24 09:37 Dose: 650 mg Alprazolam (Alprazolam 0.25 Mg Tablet) 0.25 mg PO TID PRN PRN Reason: Anxiety Stop: 09/23/24 03:50 Amitriptyline HCl (Amitriptyline Hcl 10 Mg Tab) 10 mg PO HS [place] Stop: 09/23/24 20:59 Amlodipine Besylate (Amlodipine Besylate 5 Mg Tab) 10 mg PO DAILY [place] Stop: 09/24/24 08:59 Aspirin (Aspirin 81 Mg Ectab) 81 mg PO DAILY [place] Stop: 09/23/24 08:59 Last Admin: 08/24/24 09:40 Dose: 81 mg Carvedilol (Carvedilol 3.125 Mg Tab) 3.125 mg PO BIDM [place] Stop: 09/23/24 08:24 Last Admin: 08/24/24 09:38 Dose: 3.125 mg Dextrose (Dextrose 50% 50 Ml Syringe) 25 - 50 ml IV UD PRN; Protocol PRN Reason: Hypoglycemia Protocol Stop: 09/23/24 03:40 Enoxaparin Sodium (Enoxaparin Inj 40 Mg/0.4 Ml Syr) 40 mg SQ QAM [place] Stop: 09/23/24 08:59 Last Admin: 08/24/24 09:39 Dose: 40 mg Glucagon (Glucagon For Inj 1 Mg Vial) 1 mg SQ UD PRN; Protocol PRN Reason: Hypoglycemia Protocol Stop: 09/23/24 03:40 Glucose (Glucose 40% Gel 15 Gm Tube) 15 - 30 gm PO UD PRN; Protocol PRN Reason: Hypoglycemia Protocol Stop: 09/23/24 03:40 Glucose (Glucose 10 Tab/Tube) 4 - 8 tab PO UD PRN; Protocol PRN Reason: Hypoglycemia Protocol Stop: 09/23/24 03:40 Hydralazine HCl (Hydralazine Hcl 20 Mg/Ml Vial) 5 mg IV Q6H PRN PRN Reason: systolic bp > 160 Stop: 09/23/24 08:24 Ceftriaxone Sodium (Rocephin) 2,000 mg in 50 mls @ 100 mls/hr IV Q24H [place] Stop: 09/04/24 05:59 Promethazine HCl (Phenergan) 6.25 mg in 50.25 mls @ 201 mls/hr IV Q6H PRN PRN Reason: Nausea And Vomiting Stop: 09/23/24 03:54 Insulin Aspart (Insulin Aspart Per Unit Charge) 0 units SC ACHS [place] Stop: 09/23/24 03:40 Last Admin: 08/24/24 04:20 Dose: Not Given Insulin Glargine (Lantus Per Unit Charge) 15 units SQ BID [place] Stop: 09/23/24 08:59 Last Admin: 08/24/24 09:40 Dose: 15 units Miscellaneous (Carbohydrates For Hypoglycemia ) 15 - 30 gm PO UD PRN PRN Reason: Hypoglycemia Protocol Stop: 09/23/24 03:40 Multivitamins/Minerals (Cerovite Adv Formula Tab) 1 tab PO DAILY [place] Stop: 09/23/24 08:59 Last Admin: 08/24/24 09:38 Dose: 1 tab Oxycodone HCl (Oxycodone Hcl Ir 5 Mg Tab (Immediate Release)) 5 mg PO Q4H PRN PRN Reason: Pain Stop: 09/07/24 03:54 Pantoprazole Sodium (Pantoprazole 40 Mg Tab) 40 mg PO DAILYBB [place] Stop: 09/23/24 06:29 Last Admin: 08/24/24 06:15 Dose: 40 mg Simvastatin (Simvastatin 20 Mg Tab) 20 mg PO HS [facility] Stop: 09/23/24 20:59
--- NOTE | 2024-08-24 12:29 | Nephrology Consultation ---
Date of Consultation August 24, 2024 Assessment & Plan (1) Acute hyponatremia: Patient with hyponatremia due to SIADH. NA is up to 123. Ser Osmolarity is 270, urine osm 237 and urine na 57. target rate of correction is 6 in 24 hours. Will give urea 15 g bid Avoid aldactone and amitriptyline. -Monitor sodium twice daily fluid limit 1.5 litres daily (2) Hypertensive urgency: BP is above target. Increase coreg to 6.25 mg bid. Continue amlodipine. (3) Acute UTI (urinary tract infection): She is ceftriaxone. Will follow cultures. History of Present Illness Reason for Consultation: Hyponatremia Requesting Physician: Arnoldo Reagan MD Attending Physician: Arnoldo Reagan MD History of Present Illness this is 84-year-old female with history of type 2 diabetes, hypertension, hyperlipidemia peripheral vascular disease who was admitted with weakness found to have hyponatremia with sodium of 121. patient has had several visits to the PCP for uncontrolled hypertension and medication changes. She was taken off hydrochlorothiazide recently and started on Aldactone. Patient is also on amitriptyline. Her blood pressure is still uncontrolled. Today she feels better denies any shortness of breath or dizziness. She also correct her front tooth at the complains of pain. NA is up to 124. Ser Osmolarity is 270, urine osm 237 and urine na 57. Allergies Allergy/AdvReac Type Severity Reaction Status Date / Time mupirocin [From Bactroban] Allergy Intermediate Rash Verified 08/24/24 01:16 propoxyphene Allergy Unknown CAN'T Verified 08/24/24 01:16 REMEMBER losartan AdvReac Severe HYPERKALEMI Verified 08/24/24 01:16 A lisinopril AdvReac Intermediate Cough Verified 08/24/24 01:16 Home Medications Medication Instructions Recorded Confirmed Type alprazolam 0.25 mg tablet 0.25 mg PO TID PRN Anxiety 08/24/24 08/24/24 History amitriptyline 10 mg tablet 10 mg PO HS 08/24/24 08/24/24 History amlodipine 10 mg tablet 10 mg PO DAILY 08/24/24 08/24/24 History aspirin 81 mg tablet,delayed 81 mg PO DAILY 08/24/24 08/24/24 History release cyanocobalamin (vitamin B-12) 1,000 mcg IM MONTHLY 08/24/24 08/24/24 History 1,000 mcg/mL injection solution gabapentin 300 mg capsule 300 mg PO HS PRN NEEDED PER 08/24/24 08/24/24 History FAMILY glucosamine 750 ol-xpejdyapgju-cmq 1 tab PO BID PRN NEEDED PER PT 08/24/24 08/24/24 History no1 644 mg-C 30 mg-fannie 1 mg tablet (Osteo Bi-Flex Triple Strength) insulin aspart U-100 100 unit/mL 12 - 14 unit subcut QDD 15 UNITS 08/24/24 08/24/24 History (3 mL) subcutaneous pen (Novolog DAILY FlexPen U-100 Insulin aspart) insulin degludec 100 30 unit subcut QAM 08/24/24 08/24/24 History unit-liraglutide 3.6 mg/mL(3 mL) subcutaneous pen (Xultophy 100/3.6) metoprolol succinate 100 mg 100 mg PO QPM 08/24/24 08/24/24 History tablet,extended release 24 hr brxiueoo-math-egqq 8 mg-folic 400 1 tab PO DAILY 08/24/24 08/24/24 History mcg-K 50 mcg-lutein 300 mcg tablet (Centrum Silver Women) omeprazole 20 mg tablet,delayed 20 mg PO DAILYBB 08/24/24 08/24/24 History release simvastatin 20 mg tablet 20 mg PO HS 08/24/24 08/24/24 History spironolactone 25 mg tablet 25 mg PO DAILY 08/24/24 08/24/24 History turmeric root extract 500 mg 500 mg PO HS 08/24/24 08/24/24 History capsule Patient History Social History Smoking Status: Never smoker Hx Alcohol Use: No Hx Substance Use: No Preferred Language: Czech Communication Ability: Effective 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 Beliefs That Will Affect Care: None Current Living Situation: Spouse and Family Current Living Situation Comment: daughter Debbie and Austin Feels Safe at Home: Yes Safety Concerns: Feels Safe At This Time Assistive Devices: Denture - Upper, Denture - Lower and Glasses Review of Systems 2 Review of Systems: All other systems were reviewed and negative except as noted in HPI Physical Exam 2 Physical Exam: General exam: Appears comfortable, no acute distress HEENT: Pupils are equal and reactive to light Neck: No JVD, neck is supple trachea is midline Respiratory system: Clear breath sounds bilaterally. Gastrointestinal: Abdomen is soft, non distended, non tender, bowel sounds are present CVS: Regular rate and rhythm. No murmurs, rubs or gallops Musculoskeletal: No joint or muscle tenderness Extremities: Non tender, no edema, peripheral pulses are present Neuro: Oriented, no tremors, no focal neurological deficits Skin: No rashes Results & Data Vital Signs (Past 12 Hours) Vital Signs Pulse Pulse Resp BP BP Pulse Ox O2 Del Method 08/24/24 07:30 76 14 159/80 H 98 Room Air 08/24/24 07:12 71 08/24/24 06:00 76 16 173/79 H 94 08/24/24 05:00 63 16 154/70 H 97 08/24/24 04:24 67 08/24/24 04:00 74 16 191/68 H 99 08/24/24 03:00 71 18 171/77 H 99 08/24/24 02:39 66 18 172/80 H 98 08/24/24 01:32 70 18 190/95 H 100 08/24/24 01:00 73 18 172/86 H 99 08/24/24 01:00 67 18 172/86 H 97 08/24/24 00:31 75 18 159/89 H 98 Laboratory Results 08/24/24 11:49 08/24/24 00:25 WBC 8.33 RBC 4.46 MCV 88.8 MCH 30.3 MCHC 34.1 RDW Std Deviation 40.0 RDW Coeff of Scot 12.3 Plt Count 223 MPV 9.9 Albumin 4.4
[2024-08-24] MEDS: UREA (UREA-NA) 15 GM PACK PO SCH (12:51)
[2024-08-24] MEDS: ALPRAZolam 0.25 MG TABLET PO PRN (13:46)
[2024-08-24] MEDS: carvediloL 6.25 MG TAB PO SCH (17:11)
[2024-08-24] MEDS ORDERED: AMITRIPTYLINE HCL 10 MG TAB PO SCH (21:00)
[2024-08-24] MEDS ORDERED: METOPROLOL SUCC 50MG EXT REL TAB PO SCH (21:00)
[2024-08-24] MEDS: SIMVASTATIN 20 MG TAB PO SCH (21:31)
[2024-08-25] MEDS: cefTRIAXone SODIUM 2,000 MG/50 ML BAG IV SCH (06:06)
[2024-08-25 06:23] LABS: Basophils # (auto) 0.03 K/uL (0.00-0.20); Basophils % (auto) 0.4 %; Eosinophils % (auto) 1.2 %; Hematocrit (blood only) 36.3 % (37.0-47.0); Hemoglobin 12.5 g/dl (12.0-16.0); Immature Granulocytes # (auto) 0.02 K/uL (0.01-0.20); Immature Granulocytes % (auto) 0.2 %; Lymphocytes # (auto) 3.11 K/uL (1.20-3.40); Lymphocytes % (auto) 36.9 %; Mean Corpuscular Hemoglobin 30.4 pg (25.0-34.0); Mean Corpuscular Hgb Conc 34.4 g/dL (32.0-36.0); Mean Corpuscular Volume 88.3 fL (80.0-100.0); Mean Platelet Volume 9.9 fL (9.4-12.4); Monocytes # (auto) 0.79 K/uL (0.11-0.59); Monocytes % (auto) 9.4 %; Neutrophils # (auto) 4.38 K/uL (1.40-6.50); Neutrophils % (auto) 51.9 %; Platelet Count 207 K/uL (130-400); RDW Coefficient of Variation 12.8 % (11.5-14.5); RDW Standard Deviation 41.4 fL (36.4-46.3); Red Blood Count 4.11 M/uL (4.20-5.40); White Blood Count 8.43 K/ul (4.8-10.8)
[2024-08-25 06:37] LABS: BUN Creatinine Ratio 47.5 (10-20); Potassium 4.6 mmol/L (3.5-5.1)
--- NOTE | 2024-08-25 08:05 | Hospitalist Progress Note ---
Date of Service August 25, 2024 Assessment & Plan (1) Episodic confusion: (2) Acute hyponatremia: (3) Hypertensive urgency: (4) Acute UTI (urinary tract infection): (5) Diabetes: (6) High cholesterol: (7) GERD (gastroesophageal reflux disease): (8) Restless leg syndrome: (9) Anxiety: (10) Weakness: Plan 84 year old female with PMH of DMII, HTN, HLD, CKD III, paroxysmal atrial tachycardia, GERD, RLS, vitamin B12 deficiency and anxiety who presented to the ED on 08/24 for confusion and weakness and was found to have hyponatremia, hypertensive urgency, and a UTI. Episodic confusion Multifactorial including hypertensive urgency, hyponatremia, potential UTI Patient has been alert and oriented in the hospital Blood cultures pending with no growth to date Hyponatremia Per outpatient record review - patient started with hyponatremia on 08/14 (132). PCP advised patient to stop HCTZ. Patient had HTN at home and PCP prescribed spironolactone. On 08/20 patient still hypertensive in office and PCP increased spironolactone dose. Hyponatremia worse on 08/20 (125). PCP ordered TSH (3.5), cortisol (20), serum osmolality (274), urine osmolality (214) and urine sodium (41). Labs rechecked on 08/22 and still hyponatremic (126). Initial sodium in the ED was 121 Other remarkable labs included chloride 88, serum osmolality 270, urine osmolality 237, urine sodium 57 Patient received NS bolus and sodium increased to 124 Nephrology consult: hyponatremia due to SIADH, urea 15g bid, hold spironolactone and amitriptyline, 1.5L fluid limit, if sodium level on 08/26 is at least higher than 125 patient can be discharged on urea 15g daily with nephrology follow up in one week Hypertensive urgency Blood pressures in the ED ranging from 159-191/70-95. Patient was having headaches. Discontinue spironolactone due to hyponatremia Blood pressures are controlled now Nephrology recommends carvedilol 6.25mg bid and continue amlodipine 10mg daily Acute UTI UA positive for leuk esterase and bacteria Urine culture prelim positive with enterobacter cloacae complex Pharmacy recommends macrobid 100mg bid x5 days DMII A1C 7.8 in June Sliding scale insulin On Xultophy and Novolog at home HLD Continue baby aspirin and simvastatin GERD Continue PPI RLS On gabapentin PRN at home Anxiety Continue alprazolam PRN Discontinue amitriptyline due to hyponatremia Weakness PT consult: at baseline functioning and safe to return home DVT Prophylaxis: lovenox SQ Code Status: FULL CODE PCP: Dr Alan Dukes DO Disposition: Possible discharge tomorrow pending sodium level Patient seen in collaboration with Dr Reagan. Please see addendum. I spent a total of 50 minutes coordinating, documenting and providing care for this patient excluding time spent in the performance of separately billed services or time spent by another provider/QHP. Admission and Anticipated Discharge Date Admission Date: August 24, 2024 Supervising Physician Co-Signing Physician Notes Attending Addendum: Case reviewed with the advanced practitioner. I have personally performed an interview and physical examination on the patient. I have reviewed the advanced practitioner's documentation on the date of service referenced in note, and I agree with, and take responsibility for the plan of care. please refer to her notes for full details patient seen and examined, records reviewed by myself as well diagnoses and plan of care as per advanced practitioner's notes I spent a total of 25 minutes coordinating, documenting, and providing care for this patient, excluding time spent in the performance of separately billed services or time spent by another provider/QHP. Arnoldo Reagan MD Subjective Patient seen sitting in the chair Reports she slept better last night Denies headache, chest pain, SOB, abdominal pain, N/V/D Walked in the [place] with PT this morning Eating and drinking well Having bowel movements Physical Exam Physical Exam: VITALS: Reviewed and VSS. GEN: Well-developed, female, NAD. PSYCH: Good Judgment. AOx3. Normal memory, mood, and affect. HEENT: Head NC/AT. Sclera white and conjunctiva pink. Nares without rhinorrhea. Nasal and oral mucosa pink. NECK: Supple, with no masses. CV: RRR, no m/r/g. LUNGS: CTAB, no w/r/c. ABD: Soft, NT/ND, NBS, no masses or organomegaly. SKIN: Warm, well perfused. No skin rashes or abnormal lesions. MSK: No deformities. EXT: No clubbing, cyanosis, or edema. NEURO: Normal muscle strength and tone. No focal deficits. Results & Data Results & Data Vital Signs (Past 12 Hours) Vital Signs Temp Pulse Pulse Resp BP BP Pulse Ox 08/25/24 07:13 36.7 C 75 18 125/65 96 08/25/24 04:27 36.7 C 76 16 165/77 H 96 08/24/24 23:55 72 08/24/24 23:54 36.8 C 74 17 123/66 96 08/24/24 20:32 36.8 C 80 18 119/74 96 O2 Del Method 08/25/24 07:13 Room Air 08/25/24 04:27 Room Air 08/24/24 23:55 08/24/24 23:54 Room Air 08/24/24 20:32 Room Air Laboratory Results Short CBC 08/25/24 Range/Units 05:38 WBC 8.43 (4.8-10.8) K/ul Hgb 12.5 (12.0-16.0) g/dl Hct 36.3 L (37.0-47.0) % Plt Count 207 (130-400) K/uL BMP 08/24/24 08/24/24 08/25/24 11:49 20:58 05:38 Sodium 123 L 122 L 125 L Potassium 4.6 Chloride 93 L Carbon Dioxide 28 BUN 57 H D Creatinine 1.20 Glucose 124 H Calcium 10.0 I have independently reviewed and interpreted patient's labs including CBC and BMP. Medications Administered Current Inpatient Medications Acetaminophen (Acetaminophen 325 Mg Tab) 650 mg PO QID PRN PRN Reason: pain/fever Stop: 09/23/24 03:54 Last Admin: 08/24/24 21:29 Dose: 650 mg Alprazolam (Alprazolam 0.25 Mg Tablet) 0.25 mg PO TID PRN PRN Reason: Anxiety Stop: 09/23/24 03:50 Last Admin: 08/24/24 13:46 Dose: 0.25 mg Amlodipine Besylate (Amlodipine Besylate 5 Mg Tab) 10 mg PO DAILY [facility] Stop: 09/24/24 08:59 Last Admin: 08/25/24 08:12 Dose: 10 mg Aspirin (Aspirin 81 Mg Ectab) 81 mg PO DAILY [place] Stop: 09/23/24 08:59 Last Admin: 08/25/24 08:12 Dose: 81 mg Carvedilol (Carvedilol 6.25 Mg Tab) 6.25 mg PO BIDM [place] Stop: 09/23/24 16:59 Last Admin: 08/25/24 08:10 Dose: 6.25 mg Dextrose (Dextrose 50% 50 Ml Syringe) 25 - 50 ml IV UD PRN; Protocol PRN Reason: Hypoglycemia Protocol Stop: 09/23/24 03:40 Enoxaparin Sodium (Enoxaparin Inj 40 Mg/0.4 Ml Syr) 40 mg SQ QAM [place] Stop: 09/23/24 08:59 Last Admin: 08/25/24 08:11 Dose: 40 mg Glucagon (Glucagon For Inj 1 Mg Vial) 1 mg SQ UD PRN; Protocol PRN Reason: Hypoglycemia Protocol Stop: 09/23/24 03:40 Glucose (Glucose 40% Gel 15 Gm Tube) 15 - 30 gm PO UD PRN; Protocol PRN Reason: Hypoglycemia Protocol Stop: 09/23/24 03:40 Glucose (Glucose 10 Tab/Tube) 4 - 8 tab PO UD PRN; Protocol PRN Reason: Hypoglycemia Protocol Stop: 09/23/24 03:40 Hydralazine HCl (Hydralazine Hcl 20 Mg/Ml Vial) 5 mg IV Q6H PRN PRN Reason: systolic bp > 160 Stop: 09/23/24 08:24 Ceftriaxone Sodium (Rocephin) 2,000 mg in 50 mls @ 100 mls/hr IV Q24H [facility] Stop: 09/04/24 05:59 Last Infusion: 08/25/24 06:44 Dose: Infused Promethazine HCl (Phenergan) 6.25 mg in 50.25 mls @ 201 mls/hr IV Q6H PRN PRN Reason: Nausea And Vomiting Stop: 09/23/24 03:54 Insulin Aspart (Insulin Aspart Per Unit Charge) 0 units SC ACHS [facility] Stop: 09/23/24 03:40 Last Admin: 08/25/24 08:09 Dose: 2 units Insulin Glargine (Lantus Per Unit Charge) 15 units SQ BID [facility] Stop: 09/23/24 08:59 Last Admin: 08/25/24 08:09 Dose: 15 units Miscellaneous (Carbohydrates For Hypoglycemia ) 15 - 30 gm PO UD PRN PRN Reason: Hypoglycemia Protocol Stop: 09/23/24 03:40 Multivitamins/Minerals (Cerovite Adv Formula Tab) 1 tab PO DAILY [facility] Stop: 09/23/24 08:59 Last Admin: 08/25/24 08:12 Dose: 1 tab Oxycodone HCl (Oxycodone Hcl Ir 5 Mg Tab (Immediate Release)) 5 mg PO Q4H PRN PRN Reason: Pain Stop: 09/07/24 03:54 Pantoprazole Sodium (Pantoprazole 40 Mg Tab) 40 mg PO DAILYBB [facility] Stop: 09/23/24 06:29 Last Admin: 08/25/24 06:07 Dose: 40 mg Simvastatin (Simvastatin 20 Mg Tab) 20 mg PO HS [facility] Stop: 09/23/24 20:59 Last Admin: 08/24/24 21:31 Dose: 20 mg Urea (Urea (Urea-Na) 15 Gm Pack) 15 gm PO BID [facility] Stop: 09/23/24 12:29 Last Admin: 08/25/24 08:13 Dose: 15 gm
[2024-08-25] MEDS: amLODIPine BESYLATE 5 MG TAB PO SCH (08:12)
--- NOTE | 2024-08-25 09:55 | Nephrology Progress Note ---
Date of Service August 25, 2024 Assessment & Plan (1) Acute hyponatremia: Plan: Patient with hyponatremia due to SIADH. NA is up to 125. Ser Osmolarity on admission 270, urine osm 237 and urine na 57. target rate of correction is 6 in 24 hours. -Will continue urea 15 g bid. If sodium is atleast higher than 125 she can be discharged tomorrow on urea 15g daily and fluid limit of 1.5litres daily with 1 week renal follow up. -Avoid aldactone and amitriptyline even on discharge. -Monitor sodium daily -fluid limit 1.5 litres daily (2) Hypertensive urgency: Plan: BP is at target. Continue coreg to 6.25 mg bid and amlodipine. (3) Acute UTI (urinary tract infection): Plan: She is ceftriaxone. Will follow cultures. Admission and Anticipated Discharge Date Admission Date: August 24, 2024 Subjective Seen for Hyponatremia and hypertension. She feels better today. no dizziness or SOB. BP improving. Review of Systems 2 Review of Systems: All other systems were reviewed and negative except as noted in HPI Physical Exam 2 Physical Exam: General exam: Appears comfortable, no acute distress HEENT: Pupils are equal and reactive to light Neck: No JVD, neck is supple trachea is midline Respiratory system: Clear breath sounds bilaterally. Gastrointestinal: Abdomen is soft, non distended, non tender, bowel sounds are present CVS: Regular rate and rhythm. No murmurs, rubs or gallops Musculoskeletal: No joint or muscle tenderness Extremities: Non tender, no edema, peripheral pulses are present Neuro: Oriented, no tremors, no focal neurological deficits Skin: No rashes Results & Data Vital Signs (Past 12 Hours) Vital Signs Temp Pulse Pulse Resp BP BP Pulse Ox 08/25/24 07:13 36.7 C 75 18 125/65 96 08/25/24 04:27 36.7 C 76 16 165/77 H 96 08/24/24 23:55 72 08/24/24 23:54 36.8 C 74 17 123/66 96 O2 Del Method 08/25/24 07:13 Room Air 08/25/24 04:27 Room Air 08/24/24 23:55 08/24/24 23:54 Room Air Laboratory Results 08/25/24 05:38 08/25/24 05:38 WBC 8.43 RBC 4.11 L MCV 88.3 MCH 30.4 MCHC 34.4 RDW Std Deviation 41.4 RDW Coeff of Scot 12.8 Plt Count 207 MPV 9.9
--- NOTE | 2024-08-25 13:12 | Electrocardiogram Report ---
Test Reason : Blood Pressure : */* mmHG Vent. Rate : 84 BPM Atrial Rate : 84 BPM P-R Int : 158 ms QRS Dur : 88 ms QT Int : 356 ms P-R-T Axes : 39 8 50 degrees QTcB Int : 420 ms Normal sinus rhythm Poor R wave progression, consider anterior RI vs. lead placement vs. LVH Incomplete right bundle branch block Abnormal ECG When compared with ECG of 27-Jul-2024 17:33, No significant change was found Confirmed by Travis Lambert ([id number]) on 08/25/2024 1:11:59 PM Referred By: REFERRED SELF Confirmed By: Travis Lambert
[2024-08-25] MEDS: MELATONIN 3 MG TAB PO PRN (20:29)
[2024-08-25] MEDS ORDERED: NITROFURANTOIN MONOHYDRATE 100 MG CAP PO SCH (21:00)
[2024-08-26 04:23] VITALS: TEMP 98.1; O2SAT 97
[2024-08-26 07:11] LABS: BUN Creatinine Ratio 57.1 (10-20); Calcium 10.3 mg/dl (8.6-10.3); Creatinine Clr Calc Pharmacy 30.7 ml/min; Potassium 4.3 mmol/L (3.5-5.1)
[2024-08-26 08:39] VITALS: RESP 18
[2024-08-26] MEDS ORDERED: UREA (UREA-NA) 15 GM PACK PO SCH (09:00)
[2024-08-26] MEDS: NITROFURANTOIN MONOHYDRATE 100 MG CAP PO SCH (09:25)
[2024-08-26] MEDS: UREA (UREA-NA) 15 GM PACK PO SCH (09:26)
--- NOTE | 2024-08-26 09:40 | Discharge Summary ---
Discharge Summary Date of Service August 26, 2024 Principal Dx & Hospital Course #1 = Principal Diagnosis (1) Episodic confusion: (2) Acute hyponatremia: (3) Hypertensive urgency: (4) Acute UTI (urinary tract infection): (5) Diabetes: (6) High cholesterol: (7) GERD (gastroesophageal reflux disease): (8) Restless leg syndrome: (9) Anxiety: (10) Weakness: Plan 84 year old female with PMH of DMII, HTN, HLD, CKD III, paroxysmal atrial tachycardia, GERD, RLS, vitamin B12 deficiency and anxiety who presented to the ED on 08/24 for confusion and weakness and was found to have hyponatremia, hypertensive urgency, and a UTI. Episodic confusion Multifactorial including hypertensive urgency, hyponatremia, potential UTI Patient has been alert and oriented in the hospital Blood cultures pending with no growth to date Hyponatremia Per outpatient record review - patient started with hyponatremia on 08/14 (132). PCP advised patient to stop HCTZ. Patient had HTN at home and PCP prescribed spironolactone. On 08/20 patient still hypertensive in office and PCP increased spironolactone dose. Hyponatremia worse on 08/20 (125). PCP ordered TSH (3.5), cortisol (20), serum osmolality (274), urine osmolality (214) and urine sodium (41). Labs rechecked on 08/22 and still hyponatremic (126). Initial sodium in the ED was 121 Other remarkable labs included chloride 88, serum osmolality 270, urine osmolality 237, urine sodium 57 Patient received NS bolus and sodium increased to 124 Nephrology consult: hyponatremia due to SIADH, urea 15g bid, hold spironolactone and amitriptyline, 1.5L fluid limit, if sodium level on 08/26 is at least higher than 125 patient can be discharged on urea 15g daily with nephrology follow up in one week Hypertensive urgency Blood pressures in the ED ranging from 159-191/70-95. Patient was having headaches. Discontinue spironolactone due to hyponatremia Blood pressures are controlled now Nephrology recommends carvedilol 6.25mg bid and continue amlodipine 10mg daily Acute UTI UA positive for leuk esterase and bacteria Urine culture prelim positive with enterobacter cloacae complex Pharmacy recommends macrobid 100mg bid x5 days DMII A1C 7.8 in June Sliding scale insulin On Xultophy and Novolog at home HLD Continue baby aspirin and simvastatin GERD Continue PPI RLS On gabapentin PRN at home Anxiety Continue alprazolam PRN Discontinue amitriptyline due to hyponatremia Weakness PT consult: at baseline functioning and safe to return home DVT Prophylaxis: lovenox SQ Code Status: FULL CODE PCP: Dr Alan Dukes DO Disposition: Possible discharge tomorrow pending sodium level Patient seen in collaboration with Dr Reagan. Please see addendum. I spent a total of 50 minutes coordinating, documenting and providing care for this patient excluding time spent in the performance of separately billed services or time spent by another provider/QHP. Admission HPI Per Admitting Provider History obtained from patient, family, and records. Medical history significant for paroxysmal atrial tachycardia, hypertension, hyperlipidemia, PVD, history of PE status post anticoagulation, DM2 insulin requiring, GERD, RLS.. Last confinement 2014 for sepsis secondary to complicated UTI. Recent ER visit last month for lightheadedness attributed to uncontrolled hypertension. Patient discharged home with instructions to follow-up with PCP. Multiple PCP visits for BP control since last month. Amlodipine added to BP regimen. Patient atenolol switched to Toprol-XL. HCTZ discontinued due to hyponatremia. Patient recently started on spironolactone. Patient instructed by PCP to restrict fluid given hyponatremia on outpatient blood work. Serum sodium 126-132 from outpatient blood draws since last week. Patient noted to be increasingly weak the last few days. Urinary frequency without fever, chills, hematuria, abdominal or flank pain. Achy headache and facial pain. Compliant with home medications. Usual stress from worrying about everything as per family. Denies chest pain and SOB. Chest pounding sensation. No cough symptoms. Patient somewhat confused as per family. Highest SBP of 190s documented at the ER. IV ceftriaxone administered at the ER. Patient currently mentating better as per family. 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 Updated Medication List Medication Instructions Recorded Confirmed Type alprazolam 0.25 mg tablet 0.25 mg PO TID PRN Anxiety 08/24/24 08/24/24 History amitriptyline 10 mg tablet 10 mg PO HS 08/24/24 08/24/24 History amlodipine 10 mg tablet 10 mg PO DAILY 08/24/24 08/24/24 History aspirin 81 mg tablet,delayed 81 mg PO DAILY 08/24/24 08/24/24 History release cyanocobalamin (vitamin B-12) 1,000 mcg IM MONTHLY 08/24/24 08/24/24 History 1,000 mcg/mL injection solution gabapentin 300 mg capsule 300 mg PO HS PRN NEEDED PER 08/24/24 08/24/24 History FAMILY glucosamine 750 [id number] 1 tab PO BID PRN NEEDED PER PT 08/24/24 08/24/24 History no1 644 mg-C 30 mg-fannie 1 mg tablet (Osteo Bi-Flex Triple Strength) insulin aspart U-100 100 unit/mL 12 - 14 unit subcut QDD 15 UNITS 08/24/24 08/24/24 History (3 mL) subcutaneous pen (Novolog DAILY FlexPen U-100 Insulin aspart) insulin degludec 100 30 unit subcut QAM 08/24/24 08/24/24 History unit-liraglutide 3.6 mg/mL(3 mL) subcutaneous pen (Xultophy 100/3.6) metoprolol succinate 100 mg 100 mg PO QPM 08/24/24 08/24/24 History tablet,extended release 24 hr [id number] 8 mg-folic 400 1 tab PO DAILY 08/24/24 08/24/24 History mcg-K 50 mcg-lutein 300 mcg tablet (Centrum Silver Women) omeprazole 20 mg tablet,delayed 20 mg PO DAILYBB 08/24/24 08/24/24 History release simvastatin 20 mg tablet 20 mg PO HS 08/24/24 08/24/24 History spironolactone 25 mg tablet 25 mg PO DAILY 08/24/24 08/24/24 History turmeric root extract 500 mg 500 mg PO HS 08/24/24 08/24/24 History capsule carvedilol 6.25 mg tablet 6.25 mg PO BIDM 30 days #60 tabs 08/26/24 Rx nitrofurantoin 100 mg PO BID #9 caps 08/26/24 Rx monohydrate/macrocrystals 100 mg capsule urea 15 gram oral powder packet 15 g PO DAILY 14 days #14 ea 08/26/24 Rx (Ure-Na) Hospital Stay Data Consultations 08/24/24 01:54 ED Decision to Admit Stat 08/24/24 08:19 Consult Nephrology Routine Diagnostic Imagining Performed 08/24/24 02:21 CT head/brain wo con Stat Pending Results Patient Have Any Pending Studies at Discharge: Yes Discharge Instructions Given to Patient (Per Discharging Provider) You were brought to the hospital for confusion and weakness and were found to have low sodium levels in your blood, high blood pressure, and a urinary tract infection. We consulted Nephrology and they recommended you take urea packets twice a day while in the hospital. This morning, your sodium level increased and you are able to be discharged. At home, you will need to take one urea packet per day and limit your total fluid to 1500mL per day. Nephrology will see you within the week and provide guidance about continuing to take the urea packet or not. We adjusted your blood pressure medicine while you were in the hospital and your blood pressures were stable on the day of discharge. You will not take any diuretics anymore for your blood pressure. You will not take metoprolol anymore. You will take Carvedilol (Coreg) instead. You will continue to take Amlodipine. Even though you didn't have symptoms of a UTI, your urine culture grew bacteria. You were treated with IV antibiotics while you were in the hospital. At home, you will need to finish a course of oral antibiotics. MEDICATION CHANGES: -Stop hydrochlorothiazide and stop spironolactone -Stop amitriptyline -Stop metoprolol -Start Carvedilol (Coreg) 6.25mg by mouth twice daily -Continue Amlodipine 10mg by mouth daily -Start Nitrofurantoin (Macrobid) 100mg by mouth twice daily for five days (last dose on 08/30/24) -Continue all of your other home medications as they are prescribed SUMMARY OF TEST RESULTS: Urine culture positive for enterobacter cloacae complex PENDING TEST RESULTS: Blood cultures pending with no growth to date RECOMMENDATIONS FOR FOLLOW-UP: Please follow up with your PCP after being in the hospital Please follow up with Nephrology within the next week OTHER INSTRUCTIONS: You may continue to drink protein shakes for meal replacement or extra calories and these do NOT count as part of your 1500mL fluid restriction Seek medical attention if you have: * temperature above 101 * chest pain or trouble breathing * abdominal pain, nausea, vomiting * diarrhea, dark stools or bloody stools * any unanswered questions or concerns Call 911 if symptoms are severe. It has been a pleasure taking care of you. Please take care of yourself. If you have any questions regarding your recent hospitalization please contact [facility] and request Nikkie Clement @ [phone].
--- NOTE | 2024-08-26 09:52 | Nephrology Progress Note ---
Date of Service August 26, 2024 Assessment & Plan Admission and Anticipated Discharge Date Admission Date: August 24, 2024 Subjective Assessment & Plan (1) Acute hyponatremia: Plan: Patient with hyponatremia due to SIADH. NA is up to 125. Ser Osmolarity on admission 270, urine osm 237 and urine na 57. BUN is already 76 in 2 days. BUN will be 100+ in next few days if we continue Urea. No urea. d/c On 1200ml FFR. No Urea labs again in few days renal panel, serum Osm, Urine Osm --preferably on . nephro f/u in 1-2 week. Avoid aldactone and amitriptyline even on discharge. fluid limit 1.2 litres daily (2) Hypertensive urgency: Plan: BP is at target. Continue coreg to 6.25 mg bid and amlodipine. (3) Acute UTI (urinary tract infection): Plan: She is ceftriaxone. Will follow cultures. Subjective Seen for Hyponatremia and hypertension. She feels better today. no dizziness or SOB. BP improving. Review of Systems Review of Systems: All other systems were reviewed and negative except as noted in HPI Physical Exam Physical Exam: General exam: Appears comfortable, no acute distress HEENT: Pupils are equal and reactive to light Neck: No JVD, neck is supple trachea is midline Respiratory system: Clear breath sounds bilaterally. Gastrointestinal: Abdomen is soft, non distended, non tender, bowel sounds are present CVS: Regular rate and rhythm. No murmurs, rubs or gallops Musculoskeletal: No joint or muscle tenderness Extremities: Non tender, no edema, peripheral pulses are present Neuro: Oriented, no tremors, no focal neurological deficits Skin: No rashes Results & Data Vital Signs (Past 12 Hours) Vital Signs Temp Pulse Pulse Resp BP BP Pulse Ox 08/26/24 08:39 36.7 C 100 H 18 134/89 97 08/26/24 04:21 36.7 C 93 H 16 166/78 H 97 08/26/24 00:50 36.8 C 86 17 155/78 H 96 08/25/24 23:00 82 O2 Del Method 08/26/24 08:39 Room Air 08/26/24 04:21 Room Air 08/26/24 00:50 Room Air 08/25/24 23:00
[2024-08-26 10:59] VITALS: BP 166/78
[2024-08-26 12:24] VITALS: PULSE 93
[2024-08-27] MEDS ORDERED: UREA (UREA-NA) 15 GM PACK PO SCH (09:00)
== END 2024-08-26 12:40 | disposition home or self-care (01) | DRG 644 ==
LOC: ED → EDINP 03:20 → 2E 03:41